=== PATIENT | female | born 1965 | race Caucasian/White ===

== ENCOUNTER 2016-11-11 19:32 | Inpatient (IN) | payer BC ==
[~2016-11-11] VITALS: Ht 172.7 cm; Wt 119.6 kg
[~2016-11-11 19:32] MED LIST: EVER0.25 PO; GABA-113 PO; LISI-787 PO; LORA-741 PO; MULT1CAP3 PO; ONDA4TAB46 PO; OXYC1TAB3 PO; TAMO20TA47 PO
[2016-11-11] MEDS ORDERED: MoRPHine SULFATE 10 MG/ML CARP/VIAL IV STA (20:07)
[2016-11-11] MEDS ORDERED: HYZ/50125 PO (20:29)
[2016-11-11 20:30] LABS: HEMATOCRIT 36.6 % (37-47); MEAN CELL VOLUME 86.1 fL (80-100); MEAN CORPUSCULAR HEMOGLOBIN 28.9 pg (25-34); MEAN CORPUSCULAR HGB CONC 33.6 g/dl (32-36); MEAN PLATELET VOLUME 8.8 fL (7.4-10.4); PLATELET COUNT 166 K/uL (130-400); RED BLOOD COUNT 4.25 M/uL (4.2-5.4); WHITE BLOOD COUNT 7.24 K/uL (4.8-10.8)
[2016-11-11 20:43] LABS: ALB/GLOB RATIO 0.9 (0.9-2); BUN/CREATININE RATIO 17.7 (10-20); CALCIUM 9.3 mg/dl (8.5-10.1); PARTIAL THROMBOPLASTIN RATIO 0.9; POTASSIUM 3.5 mmol/L (3.5-5.1); PROTHROMBIN TIME (PATIENT) 10.2 SECONDS (9.0-12.0)
[2016-11-11 20:52] LABS: BASO % 0.3 %; BASO ABS # 0.02 K/uL (0-0.2); COMPLETE YES; EOS % 0.4 %; IG% 0.3 %; LYMPH % 8.4 %; LYMPH ABS # 0.61 K/uL (1.2-3.4); MONO % 8.1 %; NEUT % 82.5 %
[2016-11-11 20:54] LABS: URINE APPEARANCE CLEAR (CLEAR); URINE BILIRUBIN NEG (NEG); URINE COLOR YELLOW; URINE EPITHELIAL CELL AUTO >30 /lpf (0-5); URINE NITRITE NEG (NEG); URINE SPECIFIC GRAVITY 1.021 (1.000-1.030); UROBILINOGEN NEG (NEG); ZZUR CULT IF INDIC CLEAN CATCH NO
[2016-11-11 20:55] LABS: MANUAL MICROSCOPIC REQUIRED? NO; REVIEW REQ? NO
[2016-11-11] MEDS ORDERED: ONDANSETRON INJ 2 MG/ML 2 ML VIAL IV STA (21:03)
--- NOTE | 2016-11-11 21:58 | DIAGNOSTIC IMAGING REPORT ---
CT SCAN OF THE ABDOMEN AND PELVIS WITHOUT IV CONTRAST CLINICAL HISTORY: Back pain. Fever. Fall. COMPARISON STUDY: Abdominal CT dated 12/11/2011. TECHNIQUE: CT scan of the abdomen and pelvis is performed from the lung bases to the proximal femora. Images are reviewed in the axial, sagittal, and coronal planes. IV contrast was not administered for this examination as per the front clinician. Note that the examination was performed in suboptimal fashion without oral and IV contrast. The examination is also degraded by large body habitus, and by streak artifact from the body wall abutting the CT gantry. Automated dose control exposure was utilized. CT DOSE: 1694.48 mGy.cm FINDINGS: Lung bases: The heart is normal in size and without pericardial effusion. The lung bases are clear noting dependent atelectasis. Liver: The unenhanced liver is enlarged, measuring 19 cm in length. Fatty sparing is seen adjacent to gallbladder fossa. The liver demonstrates diffusely diminished attenuation consistent with hepatic steatosis. There is no intrahepatic biliary ductal dilatation. Gallbladder: Unremarkable. Spleen: Normal in size and attenuation. Pancreas: Atrophic and grossly unremarkable. Adrenal glands: Unremarkable. Kidneys: The unenhanced kidneys are normal in size and without hydronephrosis. There are no renal calculi identified. There is no evidence of contour deforming renal mass lesion. Abdominal vasculature: The abdominal aorta is normal in course and caliber. Bowel: The small bowel and colon are normal in course and caliber. The appendix is not identified and reported surgically absent. Peritoneum: There is no intraperitoneal free air or abdominal ascites. There is a fat-containing umbilical hernia. Lymphadenopathy: None. Pelvic viscera: The bladder is normal as visualized. The uterus is surgically absent. No adnexal lesion is seen. Skeletal structures: The skeletal structures are osteopenic. Lumbosacral spondylosis is observed. There are postoperative changes from L4 -S1 spinal fusion. Grade 1 anterolisthesis is seen at L5-S1. No lytic or blastic lesions are seen. IMPRESSION: 1. There are no acute infectious or inflammatory findings in the abdomen or pelvis. 2. Hepatomegaly and hepatic steatosis. 3. Additional findings as above. Electronically signed by: Maximino Ocampo M.D. 11/11/2016 9:56 PM Dictated Date/Time: 11/11/2016 9:50 PM
--- NOTE | 2016-11-11 22:14 | DIAGNOSTIC IMAGING REPORT ---
CT SCAN OF THE LUMBAR SPINE WITHOUT IV CONTRAST CLINICAL HISTORY: Lumbar back pain. COMPARISON STUDY: Abdominal CT performed concurrently on 11/11/2016. MRI of the lumbar spine dated 12/11/2011 and 11/12/2015. TECHNIQUE: CT scan of the lumbar spine is performed from the lower thoracic spine to the sacrum. Images are reviewed in the axial, sagittal, and coronal planes. IV contrast was not administered for this examination. The examination is degraded by metallic streak artifact from spinal orthopedic hardware. FINDINGS: The skeletal structures are osteopenic. There is no evidence of fracture or malalignment involving the lumbar spine. Vertebral body height is maintained. There is 9 mm of anterolisthesis at L5-S1. Alignment is otherwise preserved. Tiny anterior osteophytic are seen throughout. There are postoperative changes from laminectomy and posterior fusion seen and interposition bone graft seen from L4 -S1. The orthopedic hardware appears intact. No lytic or blastic lesions are identified. The transverse processes are intact. There is evidence of discectomy at L4-L5 and L5-S1. The remaining disc spaces are preserved. There is no evidence of large disc herniation. The visualized sacrum and bony pelvis appear intact. Postoperative change is seen in the posterior paraspinous soft tissue the lower lumbar region. The paraspinous soft tissues otherwise normal in appearance. Hepatic steatosis is observed. IMPRESSION: 1. No acute bony abnormality is seen involving the lumbar spine. 2. Osteopenia with mild degenerative as well as postoperative changes as above. This is similar to prior studies. Electronically signed by: Maximino Ocampo M.D. 11/11/2016 10:13 PM Dictated Date/Time: 11/11/2016 10:08 PM
[2016-11-11] MEDS ORDERED: ACETAMINOPHEN 325 MG TAB PO STA (22:22)
--- NOTE | 2016-11-11 22:33 | DIAGNOSTIC IMAGING REPORT ---
TWO VIEW CHEST CLINICAL HISTORY: Atypical chest pain. Fever. FINDINGS: PA and lateral chest radiographs are compared to study dated 04/07/2014. The examination is degraded by large body habitus. The cardiomediastinal silhouette is unremarkable. The lungs and pleural spaces are clear. There is no pneumothorax. The skeletal structures are osteopenic. The bony thorax appears intact. IMPRESSION: No active disease in the chest. Electronically signed by: Maximino Ocampo M.D. 11/11/2016 10:31 PM Dictated Date/Time: 11/11/2016 10:30 PM
--- NOTE | 2016-11-11 22:34 | DIAGNOSTIC IMAGING REPORT ---
CERVICAL SPINE 5 VIEWS CLINICAL HISTORY: Neck pain. Fall several days ago. FINDINGS: AP, lateral, bilateral oblique, and odontoid views of the cervical spine are compared to study dated 08/30/2015. The skeletal structures are osteopenic. There is no radiographic evidence of fracture or subluxation. The odontoid process and lateral masses appear intact on the open mouth view. The spinolaminar line is preserved. Vertebral body height is maintained. Minimal retrolisthesis is seen at C4-C5. Alignment is otherwise preserved. There is straightening of the cervical lordosis. Anterior osteophytes are seen in the lower cervical region. Productive degenerative changes noted at the atlantodental articulation. The spinous processes appear intact. Moderate disc space narrowing is seen at C4-C5, C5-C6, and C6-C7. Posterior disc osteophyte complexes at these levels likely contribute to acquired compromise of the central canal. Neural foraminal stenosis is suggested bilaterally from C4-C5 through C6-C7, left greater than right. The prevertebral soft tissues are within normal limits. Visualized apical lung parenchyma appears clear. IMPRESSION: 1. There is no radiographic evidence of fracture or subluxation involving the cervical spine. 2. Osteopenia and spondylotic change as above. Electronically signed by: Maximino Ocampo M.D. 11/11/2016 10:33 PM Dictated Date/Time: 11/11/2016 10:31 PM
--- NOTE | 2016-11-11 22:40 | DIAGNOSTIC IMAGING REPORT ---
THORACIC SPINE 3 VIEWS CLINICAL HISTORY: Fall several days ago with thoracic back pain. FINDINGS: AP, lateral, and swimmer's views of the thoracic spine are obtained. Correlation is made with lateral chest radiograph dated 02/20/2012. The skeletal structures are osteopenic. There is no radiographic evidence of fracture or malalignment. Minimal superior endplate compression deformities in the midthoracic spine are chronic and unchanged from 2012. Vertebral body height is otherwise maintained. Alignment is preserved throughout the thoracic spine. Minimal thoracic scoliosis is suggested. The transverse processes and pedicles are grossly intact as seen on the frontal view. The disc spaces appear preserved. Tiny anterior osteophytes are seen throughout. The imaged lung parenchyma appears clear. IMPRESSION: There is no radiographic evidence of fracture or malalignment involving the thoracic spine. Electronically signed by: Maximino Ocampo M.D. 11/11/2016 10:39 PM Dictated Date/Time: 11/11/2016 10:37 PM
[2016-11-11] MEDS ORDERED: MoRPHine SULFATE 2 MG/ML CARP IV STA (22:59)
[2016-11-11 23:10] LABS: LYME DISEASE AB IGG NEG (NEG); LYME DISEASE AB IGM NEG (NEG)
[2016-11-11] MEDS ORDERED: LORAZEPAM 0.5 MG TAB PO PRN (23:45)
[2016-11-11] MEDS ORDERED: ALUMINUM/MAGNESIUM/SIMETH (MAALOX MAX) 30 ML UDC PO PRN (23:45)
[2016-11-11] MEDS ORDERED: MAGNESIUM HYDROXIDE SUSP 30 ML UDC PO PRN (23:45)
[2016-11-11] MEDS ORDERED: POLYETHYLENE (MIRALAX) 17 GM PACK PO PRN (23:45)
[2016-11-11] MEDS ORDERED: SYN50 (23:46)
[2016-11-12 00:10] VITALS: BP 130/83; PULSE 116; TEMP 37.3; O2SAT 92; Ht 172.7 cm; Wt 119.6 kg
[2016-11-12 00:22] LABS: THYROID STIMULATING HORMONE 0.952 uIu/ml (0.300-4.500)
--- NOTE | 2016-11-12 00:32 | EMERGENCY ROOM VISIT NOTE ---
History Report prepared by Nancy: Lola Robles Under the Supervision of: Dr. Arik Donald M.D. First contact with patient: 19:57 Chief Complaint: FALL Stated Complaint: LOWER BACK/LEG PAIN,FEVER,CHILLS,FAST PULSE History of Present Illness The patient is a 51 year old female who presents to the Emergency Room with complaints of a sudden fall that occurred evening. She currently rates her discomfort as a 9/10 in severity. The patient states that on she had a fall in the shower because her shower chair tipped over. She states that she hit her shoulders and back. The patient denies any head injury or loss of consciousness. She states that after the fall her pain progressively worsened and notes pain through her back, neck, and shoulders. The patient states that she has nerve pain from her two previous back surgeries. She denies any loss of control of her bowel or bladder or extremity weakness. She has noticed intermittent tingling down her legs. The patient states that today she developed mid-abdominal pain, flank pain, and fever. She notes that she has an umbilical hernia that was confirmed on a CT scan. The patient reports a surgical history of an appendectomy and hysterectomy. She states that she has a history of breast cancer, but notes that she is in remission. The patient states that she was on a clinical trial for her breast cancer and reports getting UTIs often. She states that she recently was on Cipro for a recent UTI about 2 weeks ago. The patient states that today after she ate Lasagna, she became nauseated, but notes that it was alleviated with Zofran. She denies any vomiting. The patient denies any cough or cold symptoms. The patient's notes that the patient has a history of kidney stones. Source of History: patient, spouse/significant other () Onset: Position: other (global) Symptom Intensity: 9/10 Quality: other (fall) Timing: other (sudden) Associated Symptoms: + fevers, + neck pain, + nausea, + abdominal pain, + back pain, No vomiting Note: Associated Symptoms: shoulder pain, flank pain Review of Systems See HPI for pertinent positives & negatives. A total of 10 systems reviewed and were otherwise negative. Past Medical & Surgical Medical Problems: (1) Acute bilateral low back pain (2) Breast cancer (3) CALCULUS OF KIDNEY (4) Fever (5) HYPERTENSION NOS (6) OVARIAN CYST NEC/NOS Surgical Problems: (1) H/O lumpectomy (2) H/O: hysterectomy (3) Previous back surgery (4) S/P appendectomy Family History Cancer Diabetes mellitus FHx: gallbladder disease Heart disease Hypertension Kidney disease Kidney stones Social History Smoking Status: Never Smoker Alcohol Use: none Drug Use: none Marital Status: Housing Status: lives with family Occupation Status: employed Current/Historical Medications Scheduled Gabapentin (Neurontin), 600 MG PO TID Hctz/Losartan (Hyzaar 12.5MG/50MG), 0.5 TAB PO DAILY Multiple Vitamins W/ Minerals (Womens Multi), 1 CAP PO DAILY Tamoxifen (Nolvadex), 20 MG PO QPM Scheduled PRN Lorazepam (Ativan), 0.5 MG PO TID PRN for Anxiety Ondansetron Hcl (Zofran), 4 MG PO Q8 PRN for Nausea Miscellaneous Medications Levothyroxine Sodium (Synthroid) Allergies Coded Allergies: Fish Allergy (Verified Allergy, Severe, throat swelling up, hives, 11/11/16) reports getting puffy, Sulfa Antibiotics (Verified Allergy, Intermediate, BACTRIM-HIVES, 11/11/16) Ketorolac (Verified Allergy, Mild, TACHY, 11/11/16) Sulfamethoxazole (Verified Allergy, Mild, HIVES, 11/11/16) Trimethoprim (Verified Allergy, Mild, HIVES, 11/11/16) Uncoded Allergies: ??antiemetic (Allergy, Unknown, MOST ANTIEMETICS CAUSE TACHYCARDIA; TOLERATES PHENERGAN WELL, 03/12/12) ANTIEMETIC (Allergy, Unknown, TACHYCARDIA (EXCEPT ON ZOFRAN), 11/12/15) Physical Exam Vital Signs Date Time Temp Pulse Resp B/P (MAP) Pulse Ox O2 Delivery O2 Flow Rate FiO2 11/11/16 23:18 115 20 157/72 97 Room Air 11/11/16 22:31 36.8 11/11/16 21:57 106 20 123/87 97 Room Air 11/11/16 20:20 97 Room Air 11/11/16 20:20 120 11/11/16 20:18 119 20 171/104 98 Room Air 11/11/16 19:34 38.1 132 22 163/105 100 Room Air Physical Exam Constitutional: Vital signs reviewed. Eyes: Pupils are equal round reactive to light. Conjunctiva are noninjected. ENT: Pharynx is clear without erythema or exudate. Mucous membranes are moist. Neck supple without meningeal signs. Respiratory: Clear to auscultation bilaterally. Breath sounds are equal bilaterally. Cardiovascular: Regular rate and rhythm. No rubs or gallops. GI: Suprapubic tenderness without guarding. Soft, nondistended. Bowel sounds are present. Musculoskeletal: No CVA tenderness, diffuse tenderness throughout entire cervical, thoracic, and lumbosacral spine without step off or deformity Integumentary: No cyanosis. Neurological: The patient is awake and alert. No focal deficits. Motor and sensation are intact in lower extremities bilaterally. Psychiatric: Normal affect. Medical Decision & Procedures ER Provider Diagnostic Interpretation: Radiology results as stated below per my review and the radiologist's interpretation: THORACIC SPINE 3 VIEWS CLINICAL HISTORY: Fall several days ago with thoracic back pain. FINDINGS: AP, lateral, and swimmer's views of the thoracic spine are obtained. Correlation is made with lateral chest radiograph dated 02/20/2012. The skeletal structures are osteopenic. There is no radiographic evidence of fracture or malalignment. Minimal superior endplate compression deformities in the midthoracic spine are chronic and unchanged from 2012. Vertebral body height is otherwise maintained. Alignment is preserved throughout the thoracic spine. Minimal thoracic scoliosis is suggested. The transverse processes and pedicles are grossly intact as seen on the frontal view. The disc spaces appear preserved. Tiny anterior osteophytes are seen throughout. The imaged lung parenchyma appears clear. IMPRESSION: There is no radiographic evidence of fracture or malalignment involving the thoracic spine. Electronically signed by: Maximino Ocampo M.D. 11/11/2016 10:39 PM Dictated Date/Time: 11/11/2016 10:[address] SCAN OF THE LUMBAR SPINE WITHOUT IV CONTRAST CLINICAL HISTORY: Lumbar back pain. COMPARISON STUDY: Abdominal CT performed concurrently on 11/11/2016. MRI of the lumbar spine dated 12/11/2011 and 11/12/2015. TECHNIQUE: CT scan of the lumbar spine is performed from the lower thoracic spine to the sacrum. Images are reviewed in the axial, sagittal, and coronal planes. IV contrast was not administered for this examination. The examination is degraded by metallic streak artifact from spinal orthopedic hardware. FINDINGS: The skeletal structures are osteopenic. There is no evidence of fracture or malalignment involving the lumbar spine. Vertebral body height is maintained. There is 9 mm of anterolisthesis at L5-S1. Alignment is otherwise preserved. Tiny anterior osteophytic are seen throughout. There are postoperative changes from laminectomy and posterior fusion seen and interposition bone graft seen from L4 -S1. The orthopedic hardware appears intact. No lytic or blastic lesions are identified. The transverse processes are intact. There is evidence of discectomy at L4-L5 and L5-S1. The remaining disc spaces are preserved. There is no evidence of large disc herniation. The visualized sacrum and bony pelvis appear intact. Postoperative change is seen in the posterior paraspinous soft tissue the lower lumbar region. The paraspinous soft tissues otherwise normal in appearance. Hepatic steatosis is observed. IMPRESSION: 1. No acute bony abnormality is seen involving the lumbar spine. 2. Osteopenia with mild degenerative as well as postoperative changes as above. This is similar to prior studies. Electronically signed by: Maximino Ocampo M.D. 11/11/2016 10:13 PM Dictated Date/Time: 11/11/2016 10:08 PM TWO VIEW CHEST CLINICAL HISTORY: Atypical chest pain. Fever. FINDINGS: PA and lateral chest radiographs are compared to study dated 04/07/2014. The examination is degraded by large body habitus. The cardiomediastinal silhouette is unremarkable. The lungs and pleural spaces are clear. There is no pneumothorax. The skeletal structures are osteopenic. The bony thorax appears intact. IMPRESSION: No active disease in the chest. Electronically signed by: Maximino Ocampo M.D. 11/11/2016 10:31 PM Dictated Date/Time: 11/11/2016 10:30 PM CERVICAL SPINE 5 VIEWS CLINICAL HISTORY: Neck pain. Fall several days ago. FINDINGS: AP, lateral, bilateral oblique, and odontoid views of the cervical spine are compared to study dated 08/30/2015. The skeletal structures are osteopenic. There is no radiographic evidence of fracture or subluxation. The odontoid process and lateral masses appear intact on the open mouth view. The spinolaminar line is preserved. Vertebral body height is maintained. Minimal retrolisthesis is seen at C4-C5. Alignment is otherwise preserved. There is straightening of the cervical lordosis. Anterior osteophytes are seen in the lower cervical region. Productive degenerative changes noted at the atlantodental articulation. The spinous processes appear intact. Moderate disc space narrowing is seen at C4-C5, C5-C6, and C6-C7. Posterior disc osteophyte complexes at these levels likely contribute to acquired compromise of the central canal. Neural foraminal stenosis is suggested bilaterally from C4-C5 through C6-C7, left greater than right. The prevertebral soft tissues are within normal limits. Visualized apical lung parenchyma appears clear. IMPRESSION: 1. There is no radiographic evidence of fracture or subluxation involving the cervical spine. 2. Osteopenia and spondylotic change as above. Electronically signed by: Maximino Ocampo M.D. 11/11/2016 10:33 PM Dictated Date/Time: 11/11/2016 10:[address] SCAN OF THE ABDOMEN AND PELVIS WITHOUT IV CONTRAST CLINICAL HISTORY: Back pain. Fever. Fall. COMPARISON STUDY: Abdominal CT dated 12/11/2011. TECHNIQUE: CT scan of the abdomen and pelvis is performed from the lung bases to the proximal femora. Images are reviewed in the axial, sagittal, and coronal planes. IV contrast was not administered for this examination as per the front clinician. Note that the examination was performed in suboptimal fashion without oral and IV contrast. The examination is also degraded by large body habitus, and by streak artifact from the body wall abutting the CT gantry. Automated dose control exposure was utilized. CT DOSE: 1694.48 mGy.cm FINDINGS: Lung bases: The heart is normal in size and without pericardial effusion. The lung bases are clear noting dependent atelectasis. Liver: The unenhanced liver is enlarged, measuring 19 cm in length. Fatty sparing is seen adjacent to gallbladder fossa. The liver demonstrates diffusely diminished attenuation consistent with hepatic steatosis. There is no intrahepatic biliary ductal dilatation. Gallbladder: Unremarkable. Spleen: Normal in size and attenuation. Pancreas: Atrophic and grossly unremarkable. Adrenal glands: Unremarkable. Kidneys: The unenhanced kidneys are normal in size and without hydronephrosis. There are no renal calculi identified. There is no evidence of contour deforming renal mass lesion. Abdominal vasculature: The abdominal aorta is normal in course and caliber. Bowel: The small bowel and colon are normal in course and caliber. The appendix is not identified and reported surgically absent. Peritoneum: There is no intraperitoneal free air or abdominal ascites. There is a fat-containing umbilical hernia. Lymphadenopathy: None. Pelvic viscera: The bladder is normal as visualized. The uterus is surgically absent. No adnexal lesion is seen. Skeletal structures: The skeletal structures are osteopenic. Lumbosacral spondylosis is observed. There are postoperative changes from L4 -S1 spinal fusion. Grade 1 anterolisthesis is seen at L5-S1. No lytic or blastic lesions are seen. IMPRESSION: 1. There are no acute infectious or inflammatory findings in the abdomen or pelvis. 2. Hepatomegaly and hepatic steatosis. 3. Additional findings as above. Electronically signed by: Maximino Ocampo M.D. 11/11/2016 9:56 PM Dictated Date/Time: 11/11/2016 9:50 PM Laboratory Results 11/11/16 19:55 Red Blood Count 4.25, Mean Corpuscular Volume 86.1, Mean Corpuscular Hemoglobin 28.9, Mean Corpuscular Hemoglobin Concent 33.6, Mean Platelet Volume 8.8, Neutrophils (%) (Auto) 82.5, Lymphocytes (%) (Auto) 8.4, Monocytes (%) (Auto) 8.1, Eosinophils (%) (Auto) 0.4, Basophils (%) (Auto) 0.3, Neutrophils # (Auto) 5.97, Lymphocytes # (Auto) 0.61, Monocytes # (Auto) 0.59, Eosinophils # (Auto) 0.03, Basophils # (Auto) 0.02 11/11/16 19:55 Test 11/11/16 19:55 11/11/16 20:41 11/11/16 21:10 White Blood Count 7.24 K/uL (4.8-10.8) Red Blood Count 4.25 M/uL (4.2-5.4) Hemoglobin 12.3 g/dL (12.0-16.0) Hematocrit 36.6 % (37-47) Mean Corpuscular Volume 86.1 fL (80-100) Mean Corpuscular Hemoglobin 28.9 pg (25-34) Mean Corpuscular Hemoglobin Concent 33.6 g/dl (32-36) Platelet Count 166 K/uL (130-400) Mean Platelet Volume 8.8 fL (7.4-10.4) Neutrophils (%) (Auto) 82.5 % Lymphocytes (%) (Auto) 8.4 % Monocytes (%) (Auto) 8.1 % Eosinophils (%) (Auto) 0.4 % Basophils (%) (Auto) 0.3 % Neutrophils # (Auto) 5.97 K/uL (1.4-6.5) Lymphocytes # (Auto) 0.61 K/uL (1.2-3.4) Monocytes # (Auto) 0.59 K/uL (0.11-0.59) Eosinophils # (Auto) 0.03 K/uL (0-0.5) Basophils # (Auto) 0.02 K/uL (0-0.2) RDW Standard Deviation 44.7 fL (36.4-46.3) RDW Coefficient of Variation 14.3 % (11.5-14.5) Immature Granulocyte % (Auto) 0.3 % Immature Granulocyte # (Auto) 0.02 K/uL (0.00-0.02) Prothrombin Time 10.2 SECONDS (9.0-12.0) Prothromb Time International Ratio 1.0 (0.9-1.1) Activated Partial Thromboplast Time 23.8 SECONDS (21.0-31.0) Partial Thromboplastin Ratio 0.9 Anion Gap 13.0 mmol/L (3-11) Est Creatinine Clear Calc Drug Dose 90.5 ml/min Estimated GFR () 75.5 Estimated GFR (Non- 65.2 BUN/Creatinine Ratio 17.7 (10-20) Calcium Level 9.3 mg/dl (8.5-10.1) Total Bilirubin 0.3 mg/dl (0.2-1) Aspartate Amino Transf (AST/SGOT) 29 U/L (15-37) Alanine Aminotransferase (ALT/SGPT) 44 U/L (12-78) Alkaline Phosphatase 65 U/L (45-117) Total Protein 7.4 gm/dl (6.4-8.2) Albumin 3.6 gm/dl (3.4-5.0) Globulin 3.8 gm/dl (2.5-4.0) Albumin/Globulin Ratio 0.9 (0.9-2) Thyroid Stimulating Hormone (TSH) 0.952 uIu/ml (0.300-4.500) Chemistry Specimen Hemolysis Lyme Disease IgG Antibody NEG (NEG) Lyme Disease IgM Antibody NEG (NEG) Urine Color YELLOW Urine Appearance CLEAR (CLEAR) Urine pH 5.0 (4.5-7.5) Urine Specific [place] 1.021 (1.000-1.030) Urine Protein NEG (NEG) Urine Glucose (UA) NEG (NEG) Urine Ketones TRACE (NEG) Urine Occult Blood NEG (NEG) Urine Nitrite NEG (NEG) Urine Bilirubin NEG (NEG) Urine Urobilinogen NEG (NEG) Urine Leukocyte Esterase NEG (NEG) Urine WBC (Auto) 1-5 /hpf (0-5) Urine RBC (Auto) 0-4 /hpf (0-4) Urine Hyaline Casts (Auto) 0 /lpf (0-5) Urine Epithelial Cells (Auto) >30 /lpf (0-5) Urine Bacteria (Auto) NEG (NEG) Bedside Lactic Acid Venous 1.79 mmol/L (0.90-1.70) Laboratory results as reviewed by me. Medications Administered Medications (Trade) Dose Ordered Sig/Tatyana Route Start Time Stop Time Status Last Admin Dose Admin Morphine Sulfate (MoRPHine SULFATE INJ) 6 mg NOW STAT IV 11/11/16 20:07 11/11/16 20:10 DC 11/11/16 20:37 6 MG Ondansetron HCl (Zofran Inj) 4 mg NOW STAT IV 11/11/16 21:03 11/11/16 21:04 DC 11/11/16 21:03 4 MG Acetaminophen (Tylenol Tab) 650 mg NOW STAT PO 11/11/16 22:22 11/11/16 22:24 DC 11/11/16 22:30 650 MG Morphine Sulfate (MoRPHine SULFATE INJ) 2 mg NOW STAT IV 11/11/16 22:59 11/11/16 23:00 DC 11/11/16 23:16 2 MG ECG Indication: other (fall) Rate (beats per minute): 124 Rhythm: sinus tachycardia Findings: no ectopy, other (no ST elevaitons) ED Course 1958: The patient was evaluated in room C8. A complete history and physical exam was performed. 2006: Ordered Morphine Sulfate 6 mg IV. 2102: Ordered Zofran Inj 4 mg IV. 2221: Ordered Tylenol Tab 650 mg PO. 2258: Ordered Morphine Sulfate 2 mg IV. 4: I discussed the patients case with Meg Carrion. He is going to evaluate the patient for further treatment. 6: I reevaluated the patient and she is resting. I discussed the exam findings with her and I discussed the treatment plan. She verbalized complete understanding and agreement. She is going to be evaluated for further treatment. Medical Decision This is a 51-year-old female presents with injuries after a fall as well as fever and abdominal pain starting today. Differential diagnosis includes UTI, pyelonephritis, kidney stone, diverticulitis, compression fracture, strain, intervertebral disc disease. I did perform a limited focused review of portions of the patient's old chart on the electronic medical record. The patient has had no recent pertinent visits to this hospital. Medication Reconciliation: I attest that I have personally reviewed the patient' s current medication list. Blood Pressure Screening: Patient was found to have an elevated blood pressure and was referred to their primary doctor for recheck and further treatment. I did evaluate the patient as noted above. The patient has had pain to her entire back and neck since she fell in the shower several days ago. Today she developed abdominal pain with fever. On exam she is neurologically intact. She does have suprapubic abdominal tenderness. She does not demonstrate any signs of cauda equina syndrome or spinal cord injury. IV access was established. I did treat the patient with IV morphine and Zofran. She was given Tylenol for her fever. I did order and personally review the patient's x- rays as described above. She has no fractures or dislocations or signs of pneumonia. I did order and review the patient's blood work as noted in the electronic medical record. Her white blood cell count is not elevated. Her lactic acid is elevated. I did order a CT of the abdomen and pelvis and lumbosacral spine. I did review the images myself as well as the radiology report as described above. There is no evidence of acute pathology on the CT scans.I did reassess the patient. She is still having back pain. I did treat her with additional morphine. I did discuss the test results with her. At this time the etiology of her fever is unclear. She will be hospitalized for further evaluation and pain control. I did discuss the case with the hospitalist and high risk case manager. Consults Time Called: [phone] Consulting Physician: Meg Carrion Returned Call: [phone] I discussed the patients case with Meg Carrion. He is going to evaluate the patient for further treatment. Impression Primary Impression: Fever of unknown origin Additional Impressions: Lower abdominal pain Back pain Fall Scribe Attestation The scribe's documentation has been prepared under my direct and personally reviewed by me in its entirety. I confirm that the note above accurately reflects all work, treatment, procedures, and medical decision making performed by me. Departure Information Dispostion Being Evaluated By Hospitalist Referrals Tom Martinez M.D.(GISEL) (PCP) Problem Qualifiers Additional Impressions: Back pain Back pain location: back pain in unspecified location Chronicity: acute Back pain laterality: midline Qualified Codes: M54.9 - Dorsalgia, unspecified Fall Encounter type: initial encounter Qualified Codes: W19.XXXA - Unspecified fall, initial encounter
[2016-11-12] MEDS ORDERED: GABAPENTIN 600 MG TAB PO STA (01:40)
[2016-11-12] MEDS ORDERED: TAMOXIFEN CITRATE 10 MG TAB PO ONE (01:45)
--- NOTE | 2016-11-12 02:14 | History and Physical ---
History & Physical Date & Time of Service: Nov 12, 2016 at 01:39 Chief Complaint: Acute Bilateral Low Back Pain, Fever Primary Care Physician: Tom Martinez M.D.(GISEL) History of Present Illness Source: patient, family, clinic records This is a 51 year old female with a PMH of R sided breast CA with mets to the axillary lymph node - completed course of chemo and radiation, HTN, hypothyroidism, episleritis; now off of steroids, hx. of multiple lumbar surgeries in 2011 and 2013 - presents with fevers/chills/weakness. She states that on , November 08 she fell while in the shower -- she states that it was a mechanical fall and she landed on her buttocks. Since the fall, her back pain has worsened. She states that today, she also felt weak, her heart started racing and she developed symptomatic fevers/chills. Presented to the ER; CXR and UA negative. Received morphine and Zofran - felt slightly better. Due to the low back pain, she has been having trouble ambulating - has been using a cane, but still having ambulatory issues. Past Medical/Surgical History Medical Problems: (1) CALCULUS OF KIDNEY Status: Resolved (2) HYPERTENSION NOS Status: Chronic (3) OVARIAN CYST NEC/NOS Status: Resolved Surgical Problems: (1) H/O lumpectomy Status: Resolved (2) H/O: hysterectomy Status: Resolved (3) Previous back surgery Status: Resolved (4) S/P appendectomy Status: Resolved Family History Cancer Diabetes mellitus FHx: gallbladder disease Heart disease Hypertension Kidney disease Kidney stones Social History Smoking Status: Never Smoker Drug Use: none Marital Status: Housing status: lives with family Occupational Status: employed Immunizations History of Influenza Vaccine: No History of Tetanus Vaccine?: Yes History of Pneumococcal: No History of Hepatitis B Vaccine: Yes Hepatitis Immunization Date: Mar 13, 2011 Multi-Drug Resistant Organisms History of MDRO: No Allergies Coded Allergies: Fish Allergy (Verified Allergy, Severe, throat swelling up, hives, 11/11/16) reports getting puffy, Sulfa Antibiotics (Verified Allergy, Intermediate, BACTRIM-HIVES, 11/11/16) Ketorolac (Verified Allergy, Mild, TACHY, 11/11/16) Sulfamethoxazole (Verified Allergy, Mild, HIVES, 11/11/16) Trimethoprim (Verified Allergy, Mild, HIVES, 11/11/16) Uncoded Allergies: ??antiemetic (Allergy, Unknown, MOST ANTIEMETICS CAUSE TACHYCARDIA; TOLERATES PHENERGAN WELL, 03/12/12) ANTIEMETIC (Allergy, Unknown, TACHYCARDIA (EXCEPT ON ZOFRAN), 11/12/15) Home Medications Scheduled Gabapentin (Neurontin), 600 MG PO TID Hctz/Losartan (Hyzaar 12.5MG/50MG), 0.5 TAB PO DAILY Multiple Vitamins W/ Minerals (Womens Multi), 1 CAP PO DAILY Tamoxifen (Nolvadex), 20 MG PO QPM Scheduled PRN Lorazepam (Ativan), 0.5 MG PO TID PRN for Anxiety Ondansetron Hcl (Zofran), 4 MG PO Q8 PRN for Nausea Miscellaneous Medications Levothyroxine Sodium (Synthroid) Review of Systems Constitutional: + fever, + chills, + weakness, + fatigue, No sweats, No weight loss Eyes: No worsening of vision ENT: No unusual epistaxis Respiratory: No cough, No sputum, No wheezing, No shortness of breath, No dyspnea on exertion, No dyspnea at rest, No hemoptysis Abdomen: + pain (abdominal cramping), No nausea, No vomiting, No diarrhea, No constipation, No GI bleeding Musculoskeletal: + joint pain (low back pain) Genitourinary - Female: No dysuria, No urinary frequency, No urinary urgency, No urinary incontinence, No urinary retention, No hematuria Neurologic: + weakness, + balance problems, No numbness/tingling, No vertigo Psychiatric: No depression symptoms, No anxiety, No insomnia Endocrine: No fatigue Hematologic / Lymphatic: No abnormal bleeding/bruising Integumentary: No rash Allergic / Immunologic: No environmental allergies, No seasonal allergies Physical Exam Vital Signs Date Time Temp Pulse Resp B/P (MAP) Pulse Ox O2 Delivery O2 Flow Rate FiO2 11/11/16 23:18 115 20 157/72 97 Room Air 11/11/16 22:31 36.8 11/11/16 21:57 106 20 123/87 97 Room Air 11/11/16 20:20 97 Room Air 11/11/16 20:20 120 11/11/16 20:18 119 20 171/104 98 Room Air 11/11/16 19:34 38.1 132 22 163/105 100 Room Air General Appearance: + mild distress (secondary to pain), + obese Head: normocephalic, atraumatic Eyes: normal inspection ENT: hearing grossly normal Neck: supple Respiratory/Chest: chest non-tender, lungs clear, normal breath sounds, no respiratory distress, no accessory muscle use Cardiovascular: no edema, no murmur, + tachycardia Abdomen/GI: normal bowel sounds, non tender, soft Extremities/Musculoskelatal: normal capillary refill, no pedal edema Neurologic/Psych: no motor/sensory deficits, alert, normal mood/affect Skin: normal color Diagnostics Laboratory Results Results Past 24 Hours Test 11/11/16 19:55 11/11/16 20:41 11/11/16 21:10 Range/Units White Blood Count 7.24 4.8-10.8 K/uL Red Blood Count 4.25 4.2-5.4 M/uL Hemoglobin 12.3 12.0-16.0 g/dL Hematocrit 36.6 37-47 % Mean Corpuscular Volume 86.1 80-100 fL Mean Corpuscular Hemoglobin 28.9 25-34 pg Mean Corpuscular Hemoglobin Concent 33.6 32-36 g/dl Platelet Count 166 130-400 K/uL Mean Platelet Volume 8.8 7.4-10.4 fL Neutrophils (%) (Auto) 82.5 % Lymphocytes (%) (Auto) 8.4 % Monocytes (%) (Auto) 8.1 % Eosinophils (%) (Auto) 0.4 % Basophils (%) (Auto) 0.3 % Neutrophils # (Auto) 5.97 1.4-6.5 K/uL Lymphocytes # (Auto) 0.61 1.2-3.4 K/uL Monocytes # (Auto) 0.59 0.11-0.59 K/uL Eosinophils # (Auto) 0.03 0-0.5 K/uL Basophils # (Auto) 0.02 0-0.2 K/uL RDW Standard Deviation 44.7 36.4-46.3 fL RDW Coefficient of Variation 14.3 11.5-14.5 % Immature Granulocyte % (Auto) 0.3 % Immature Granulocyte # (Auto) 0.02 0.00-0.02 K/uL Prothrombin Time 10.2 9.0-12.0 SECONDS Prothromb Time International Ratio 1.0 0.9-1.1 Activated Partial Thromboplast Time 23.8 21.0-31.0 SECONDS Partial Thromboplastin Ratio 0.9 Sodium Level 141 136-145 mmol/L Potassium Level 3.5 3.5-5.1 mmol/L Chloride Level 104 98-107 mmol/L Carbon Dioxide Level 24 21-32 mmol/L Anion Gap 13.0 3-11 mmol/L Blood Urea Nitrogen 18 7-18 mg/dl Creatinine 1.00 0.60-1.20 mg/dl Est Creatinine Clear Calc Drug Dose 90.5 ml/min Estimated GFR () 75.5 Estimated GFR (Non- 65.2 BUN/Creatinine Ratio 17.7 10-20 Random Glucose 132 70-99 mg/dl Calcium Level 9.3 8.5-10.1 mg/dl Total Bilirubin 0.3 0.2-1 mg/dl Aspartate Amino Transf (AST/SGOT) 29 15-37 U/L Alanine Aminotransferase (ALT/SGPT) 44 12-78 U/L Alkaline Phosphatase 65 45-117 U/L Total Protein 7.4 6.4-8.2 gm/dl Albumin 3.6 3.4-5.0 gm/dl Globulin 3.8 2.5-4.0 gm/dl Albumin/Globulin Ratio 0.9 0.9-2 Thyroid Stimulating Hormone (TSH) 0.952 0.300-4.500 uIu/ml Chemistry Specimen Hemolysis Lyme Disease IgG Antibody NEG NEG Lyme Disease IgM Antibody NEG NEG Urine Color YELLOW Urine Appearance CLEAR CLEAR Urine pH 5.0 4.5-7.5 Urine Specific [place] 1.021 1.000-1.030 Urine Protein NEG NEG Urine Glucose (UA) NEG NEG Urine Ketones TRACE NEG Urine Occult Blood NEG NEG Urine Nitrite NEG NEG Urine Bilirubin NEG NEG Urine Urobilinogen NEG NEG Urine Leukocyte Esterase NEG NEG Urine WBC (Auto) 1-5 0-5 /hpf Urine RBC (Auto) 0-4 0-4 /hpf Urine Hyaline Casts (Auto) 0 0-5 /lpf Urine Epithelial Cells (Auto) >30 0-5 /lpf Urine Bacteria (Auto) NEG NEG Bedside Lactic Acid Venous 1.79 0.90-1.70 mmol/L Microbiology Results 11/11/16 Blood Culture, Received Pending 11/11/16 Blood Culture, Received Pending Diagnostic Radiology CT SCAN OF THE ABDOMEN AND PELVIS WITHOUT IV CONTRAST CLINICAL HISTORY: Back pain. Fever. Fall. COMPARISON STUDY: Abdominal CT dated 12/11/2011. TECHNIQUE: CT scan of the abdomen and pelvis is performed from the lung bases to the proximal femora. Images are reviewed in the axial, sagittal, and coronal planes. IV contrast was not administered for this examination as per the front clinician. Note that the examination was performed in suboptimal fashion without oral and IV contrast. The examination is also degraded by large body habitus, and by streak artifact from the body wall abutting the CT gantry. Automated dose control exposure was utilized. CT DOSE: 1694.48 mGy.cm FINDINGS: Lung bases: The heart is normal in size and without pericardial effusion. The lung bases are clear noting dependent atelectasis. Liver: The unenhanced liver is enlarged, measuring 19 cm in length. Fatty sparing is seen adjacent to gallbladder fossa. The liver demonstrates diffusely diminished attenuation consistent with hepatic steatosis. There is no intrahepatic biliary ductal dilatation. Gallbladder: Unremarkable. Spleen: Normal in size and attenuation. Pancreas: Atrophic and grossly unremarkable. Adrenal glands: Unremarkable. Kidneys: The unenhanced kidneys are normal in size and without hydronephrosis. There are no renal calculi identified. There is no evidence of contour deforming renal mass lesion. Abdominal vasculature: The abdominal aorta is normal in course and caliber. Bowel: The small bowel and colon are normal in course and caliber. The appendix is not identified and reported surgically absent. Peritoneum: There is no intraperitoneal free air or abdominal ascites. There is a fat-containing umbilical hernia. Lymphadenopathy: None. Pelvic viscera: The bladder is normal as visualized. The uterus is surgically absent. No adnexal lesion is seen. Skeletal structures: The skeletal structures are osteopenic. Lumbosacral spondylosis is observed. There are postoperative changes from L4 -S1 spinal fusion. Grade 1 anterolisthesis is seen at L5-S1. No lytic or blastic lesions are seen. IMPRESSION: 1. There are no acute infectious or inflammatory findings in the abdomen or pelvis. 2. Hepatomegaly and hepatic steatosis. 3. Additional findings as above. CT SCAN OF THE LUMBAR SPINE WITHOUT IV CONTRAST CLINICAL HISTORY: Lumbar back pain. COMPARISON STUDY: Abdominal CT performed concurrently on 11/11/2016. MRI of the lumbar spine dated 12/11/2011 and 11/12/2015. TECHNIQUE: CT scan of the lumbar spine is performed from the lower thoracic spine to the sacrum. Images are reviewed in the axial, sagittal, and coronal planes. IV contrast was not administered for this examination. The examination is degraded by metallic streak artifact from spinal orthopedic hardware. FINDINGS: The skeletal structures are osteopenic. There is no evidence of fracture or malalignment involving the lumbar spine. Vertebral body height is maintained. There is 9 mm of anterolisthesis at L5-S1. Alignment is otherwise preserved. Tiny anterior osteophytic are seen throughout. There are postoperative changes from laminectomy and posterior fusion seen and interposition bone graft seen from L4 -S1. The orthopedic hardware appears intact. No lytic or blastic lesions are identified. The transverse processes are intact. There is evidence of discectomy at L4-L5 and L5-S1. The remaining disc spaces are preserved. There is no evidence of large disc herniation. The visualized sacrum and bony pelvis appear intact. Postoperative change is seen in the posterior paraspinous soft tissue the lower lumbar region. The paraspinous soft tissues otherwise normal in appearance. Hepatic steatosis is observed. IMPRESSION: 1. No acute bony abnormality is seen involving the lumbar spine. 2. Osteopenia with mild degenerative as well as postoperative changes as above. This is similar to prior studies. THORACIC SPINE 3 VIEWS CLINICAL HISTORY: Fall several days ago with thoracic back pain. FINDINGS: AP, lateral, and swimmer's views of the thoracic spine are obtained. Correlation is made with lateral chest radiograph dated 02/20/2012. The skeletal structures are osteopenic. There is no radiographic evidence of fracture or malalignment. Minimal superior endplate compression deformities in the midthoracic spine are chronic and unchanged from 2011. Vertebral body height is otherwise maintained. Alignment is preserved throughout the thoracic spine. Minimal thoracic scoliosis is suggested. The transverse processes and pedicles are grossly intact as seen on the frontal view. The disc spaces appear preserved. Tiny anterior osteophytes are seen throughout. The imaged lung parenchyma appears clear. IMPRESSION: There is no radiographic evidence of fracture or malalignment involving the thoracic spine. TWO VIEW CHEST CLINICAL HISTORY: Atypical chest pain. Fever. FINDINGS: PA and lateral chest radiographs are compared to study dated 04/07/2014. The examination is degraded by large body habitus. The cardiomediastinal silhouette is unremarkable. The lungs and pleural spaces are clear. There is no pneumothorax. The skeletal structures are osteopenic. The bony thorax appears intact. IMPRESSION: No active disease in the chest. CERVICAL SPINE 5 VIEWS CLINICAL HISTORY: Neck pain. Fall several days ago. FINDINGS: AP, lateral, bilateral oblique, and odontoid views of the cervical spine are compared to study dated 08/30/2015. The skeletal structures are osteopenic. There is no radiographic evidence of fracture or subluxation. The odontoid process and lateral masses appear intact on the open mouth view. The spinolaminar line is preserved. Vertebral body height is maintained. Minimal retrolisthesis is seen at C4-C5. Alignment is otherwise preserved. There is straightening of the cervical lordosis. Anterior osteophytes are seen in the lower cervical region. Productive degenerative changes noted at the atlantodental articulation. The spinous processes appear intact. Moderate disc space narrowing is seen at C4-C5, C5-C6, and C6-C7. Posterior disc osteophyte complexes at these levels likely contribute to acquired compromise of the central canal. Neural foraminal stenosis is suggested bilaterally from C4-C5 through C6-C7, left greater than right. The prevertebral soft tissues are within normal limits. Visualized apical lung parenchyma appears clear. IMPRESSION: 1. There is no radiographic evidence of fracture or subluxation involving the cervical spine. 2. Osteopenia and spondylotic change as above. Impression Assessment and Plan This is a 51 year old female with a PMH of R sided breast CA with mets to the axillary lymph node - completed course of chemo and radiation, HTN, hypothyroidism, episleritis; now off of steroids, hx. of multiple lumbar surgeries in 2011 and 2013 - presents with fevers/chills/weakness and low back pain Fevers/Chills/Weakness possibly viral gastroenteritis CXR negative UA negative check C. diff - recent abx use for UTI has had L leg pain check dopplers to r/o DVT no abx. for now if tachycardia, fevers persist, may need to r/o PE Low Back Pain with hx. of lumbar surgeries in [address] Chavez will continue gabapentin Percocet PRN, Morphine PRN will try to stick with PO medications PT/OT HTN hold Hyzaar monitor blood pressure resume if stable Hypothyroidism continue Synthroid R Breast CA f/u with oncology as outpatient q6 months for follow-up DVT ppx subq heparin FULL CODE VTE Prophylaxis VTE Risk Assessment Done? Y/N: Yes Risk Level: High
[2016-11-12] MEDS: SODIUM CHLORIDE 0.9% 1000ML 1,000 ML IV SCH ×2 (02:34→14:19)
[2016-11-12] MEDS: OXYCODONE/ACETAMINOPHEN 5-325 TAB PO PRN ×4 (05:37→23:49)
[2016-11-12] MEDS: LEVOTHYROXINE 50 MCG TAB PO SCH (05:37)
[2016-11-12] MEDS: HEPARIN SOD 5000 UNIT/0.5 ML CARP SQ SCH ×3 (05:40→20:54)
[2016-11-12 06:56] LABS: MEAN CELL VOLUME 87.1 fL (80-100); MEAN CORPUSCULAR HGB CONC 33.3 g/dl (32-36); PLATELET COUNT 133 K/uL (130-400); RED BLOOD COUNT 3.79 M/uL (4.2-5.4); WHITE BLOOD COUNT 6.83 K/uL (4.8-10.8)
[2016-11-12 07:20] VITALS: BP 148/83; PULSE 102; TEMP 36.8; O2SAT 93
[2016-11-12 07:33] LABS: BUN/CREATININE RATIO 17.1 (10-20); CALCIUM 8.4 mg/dl (8.5-10.1); CREATININE 0.86 mg/dl (0.60-1.20); POTASSIUM 3.5 mmol/L (3.5-5.1)
--- NOTE | 2016-11-12 07:59 | DIAGNOSTIC IMAGING REPORT ---
VENOUS DOPPLER LWR EXT BILA HISTORY: 51-year-old female presents with leg and lower back pain with fever and chills. Concern for deep venous thrombosis. TECHNIQUE: Multiple real-time sonographic images of the deep venous structures of the lower extremities were obtained assessing adame scale, color Doppler flow and spectral waveform appearance. FINDINGS: RIGHT LOWER EXTREMITY: The common femoral, profunda femoral, femoral, popliteal, and greater saphenous veins demonstrate complete compressibility with external transducer pressure and spontaneous and phasic spectral and color flow. The posterior tibial and peroneal veins demonstrate complete compressibility with external transducer pressure. LEFT LOWER EXTREMITY: The common femoral, profunda femoral, femoral, popliteal, and greater saphenous veins demonstrate complete compressibility with external transducer pressure and spontaneous and phasic spectral and color flow. The posterior tibial and peroneal veins demonstrate complete compressibility with external transducer pressure. IMPRESSION: No sonographic evidence of deep venous thrombosis. Electronically signed by: Aleksander Yan 11/12/2016 7:58 AM Dictated Date/Time: 11/12/2016 7:55 AM
[2016-11-12] MEDS: GABAPENTIN 600 MG TAB PO SCH ×3 (09:19→20:48)
[2016-11-12] MEDS: PANTOprazole SOD 40 MG TAB PO SCH (09:20)
[2016-11-12] MEDS: ONDANSETRON INJ 2 MG/ML 2 ML VIAL IV PRN ×3 (09:20→19:37)
[2016-11-12] MEDS: CEROVITE ADV FORMULA TAB PO SCH (09:20)
[2016-11-12] MEDS: MoRPHine SULFATE 2 MG/ML CARP IV PRN ×2 (13:08→19:50)
[2016-11-12 15:42] VITALS: BP 148/89; PULSE 107; TEMP 36.9; O2SAT 96
[2016-11-12 16:20] VITALS: O2SAT 96
--- NOTE | 2016-11-12 18:24 | Progress Note ---
Internal Med Progress Note Date of Service: Nov 12, 2016. Provider Documentation: SUBJECTIVE: Patient is lying in her bed and is in no distress. Pain in back is better today. Denies any fever/chills. Feels weak. No other new change or complaint. OBJECTIVE: Vital Signs-as noted below Examination: General Appearance: Obese, Alert/Awake and is lying in her bed. Head: normocephalic, atraumatic Eyes: normal inspection. No icterus. ENT: hearing grossly normal. Ears, Nose & Throat are normal looking. Neck: supple, midline trachea, Respiratory/Chest: chest non-tender, lungs clear, normal breath sounds, no respiratory distress, no accessory muscle use Cardiovascular: no edema, no murmur, + tachycardia Abdomen/GI: normal bowel sounds, non tender, soft Extremities/Musculoskeletal: normal capillary refill, no pedal edema Neurologic/Psych: no motor/sensory deficits, alert, normal mood/affect Skin: normal color Lab data as noted below. ASSESSMENT & PLAN: X-Ray Thoracic Spine IMPRESSION: There is no radiographic evidence of fracture or malalignment involving the thoracic spine. CT Lumbar Spine IMPRESSION: 1. No acute bony abnormality is seen involving the lumbar spine. 2. Osteopenia with mild degenerative as well as postoperative changes as above. This is similar to prior studies. CT Cervical Spine IMPRESSION: 1. There is no radiographic evidence of fracture or subluxation involving the cervical spine. 2. Osteopenia and spondylotic change as above. Venous Duplex IMPRESSION: No sonographic evidence of deep venous thrombosis. Fevers/Chills/Weakness: Possibly viral gastroenteritis -CXR negative -UA negative -Dopplers shows no DVT -No abx. for now Low Back Pain: With hx. of lumbar surgeries in [address] Chavez -Continue gabapentin -Percocet PRN, Morphine PRN -will try to stick with PO medications -PT/OT Evaluation Hypertension: Holding Hyzaar -Monitor blood pressure -Resume if stable Hypothyroidism: Continue Synthroid Right Breast CA: F/U f with oncology as outpatient q6 months for follow-up DVT Prophylaxis: Sq Heparin. Code Status: FULL CODE Disposition: Discharge in 1-2 days Vital Signs: Date Time Temp Pulse Resp B/P (MAP) Pulse Ox O2 Delivery O2 Flow Rate FiO2 11/12/16 15:42 36.9 107 18 148/89 (108) 96 Room Air 11/12/16 09:10 Room Air 11/12/16 07:20 36.8 102 19 148/83 (104) 93 Room Air 11/12/16 00:10 Room Air 11/12/16 00:10 37.3 116 16 130/83 92 Room Air 11/11/16 23:18 115 20 157/72 97 Room Air 11/11/16 22:31 36.8 11/11/16 21:57 106 20 123/87 97 Room Air 11/11/16 20:20 97 Room Air 11/11/16 20:20 120 11/11/16 20:18 119 20 171/104 98 Room Air 11/11/16 19:34 38.1 132 22 163/105 100 Room Air Lab Results: Results Past 24 Hours Test 11/11/16 19:55 11/11/16 20:41 11/11/16 21:10 11/12/16 06:13 Range/Units White Blood Count 7.24 6.83 4.8-10.8 K/uL Red Blood Count 4.25 3.79 4.2-5.4 M/uL Hemoglobin 12.3 11.0 12.0-16.0 g/dL Hematocrit 36.6 33.0 37-47 % Mean Corpuscular Volume 86.1 87.1 80-100 fL Mean Corpuscular Hemoglobin 28.9 29.0 25-34 pg Mean Corpuscular Hemoglobin Concent 33.6 33.3 32-36 g/dl Platelet Count 166 133 130-400 K/uL Mean Platelet Volume 8.8 9.0 7.4-10.4 fL Neutrophils (%) (Auto) 82.5 % Lymphocytes (%) (Auto) 8.4 % Monocytes (%) (Auto) 8.1 % Eosinophils (%) (Auto) 0.4 % Basophils (%) (Auto) 0.3 % Neutrophils # (Auto) 5.97 1.4-6.5 K/uL Lymphocytes # (Auto) 0.61 1.2-3.4 K/uL Monocytes # (Auto) 0.59 0.11-0.59 K/uL Eosinophils # (Auto) 0.03 0-0.5 K/uL Basophils # (Auto) 0.02 0-0.2 K/uL RDW Standard Deviation 44.7 47.3 36.4-46.3 fL RDW Coefficient of Variation 14.3 14.8 11.5-14.5 % Immature Granulocyte % (Auto) 0.3 % Immature Granulocyte # (Auto) 0.02 0.00-0.02 K/uL Prothrombin Time 10.2 9.0-12.0 SECONDS Prothromb Time International Ratio 1.0 0.9-1.1 Activated Partial Thromboplast Time 23.8 21.0-31.0 SECONDS Partial Thromboplastin Ratio 0.9 Sodium Level 141 138 136-145 mmol/L Potassium Level 3.5 3.5 3.5-5.1 mmol/L Chloride Level 104 106 98-107 mmol/L Carbon Dioxide Level 24 23 21-32 mmol/L Anion Gap 13.0 9.0 3-11 mmol/L Blood Urea Nitrogen 18 15 7-18 mg/dl Creatinine 1.00 0.86 0.60-1.20 mg/dl Est Creatinine Clear Calc Drug Dose 90.5 105.3 ml/min Estimated GFR () 75.5 90.7 Estimated GFR (Non- 65.2 78.2 BUN/Creatinine Ratio 17.7 17.1 10-20 Random Glucose 132 140 70-99 mg/dl Calcium Level 9.3 8.4 8.5-10.1 mg/dl Total Bilirubin 0.3 0.2-1 mg/dl Aspartate Amino Transf (AST/SGOT) 29 15-37 U/L Alanine Aminotransferase (ALT/SGPT) 44 12-78 U/L Alkaline Phosphatase 65 45-117 U/L Total Protein 7.4 6.4-8.2 gm/dl Albumin 3.6 3.4-5.0 gm/dl Globulin 3.8 2.5-4.0 gm/dl Albumin/Globulin Ratio 0.9 0.9-2 Thyroid Stimulating Hormone (TSH) 0.952 0.300-4.500 uIu/ml Chemistry Specimen Hemolysis Lyme Disease IgG Antibody NEG NEG Lyme Disease IgM Antibody NEG NEG Urine Color YELLOW Urine Appearance CLEAR CLEAR Urine pH 5.0 4.5-7.5 Urine Specific [place] 1.021 1.000-1.030 Urine Protein NEG NEG Urine Glucose (UA) NEG NEG Urine Ketones TRACE NEG Urine Occult Blood NEG NEG Urine Nitrite NEG NEG Urine Bilirubin NEG NEG Urine Urobilinogen NEG NEG Urine Leukocyte Esterase NEG NEG Urine WBC (Auto) 1-5 0-5 /hpf Urine RBC (Auto) 0-4 0-4 /hpf Urine Hyaline Casts (Auto) 0 0-5 /lpf Urine Epithelial Cells (Auto) >30 0-5 /lpf Urine Bacteria (Auto) NEG NEG Bedside Lactic Acid Venous 1.79 0.90-1.70 mmol/L Microbiology Results 11/11/16 Blood Culture, Received Pending 11/11/16 Blood Culture, Received Pending
[2016-11-12] MEDS: TAMOXIFEN CITRATE 10 MG TAB PO SCH (20:53)
[2016-11-12 23:09] VITALS: BP 151/86; PULSE 95; TEMP 37.9; O2SAT 93
[2016-11-13 02:22] VITALS: TEMP 37.3
[2016-11-13] MEDS: SODIUM CHLORIDE 0.9% 1000ML 1,000 ML IV SCH ×2 (02:23→15:40)
[2016-11-13] MEDS: HEPARIN SOD 5000 UNIT/0.5 ML CARP SQ SCH ×3 (05:36→20:39)
[2016-11-13] MEDS: LEVOTHYROXINE 50 MCG TAB PO SCH (05:36)
[2016-11-13] MEDS: OXYCODONE/ACETAMINOPHEN 5-325 TAB PO PRN ×3 (05:37→13:50)
[2016-11-13 06:28] LABS: HEMATOCRIT 33.9 % (37-47); MEAN CELL VOLUME 84.5 fL (80-100); MEAN CORPUSCULAR HEMOGLOBIN 27.4 pg (25-34); MEAN CORPUSCULAR HGB CONC 32.4 g/dl (32-36); MEAN PLATELET VOLUME 8.7 fL (7.4-10.4); PLATELET COUNT 133 K/uL (130-400); RED BLOOD COUNT 4.01 M/uL (4.2-5.4); WHITE BLOOD COUNT 6.16 K/uL (4.8-10.8)
[2016-11-13 07:04] LABS: BUN/CREATININE RATIO 13.7 (10-20); CALCIUM 8.1 mg/dl (8.5-10.1); CREATININE 0.64 mg/dl (0.60-1.20); POTASSIUM 3.7 mmol/L (3.5-5.1)
[2016-11-13 07:05] LABS: BASO % 0.2 %; BASO ABS # 0.01 K/uL (0-0.2); COMPLETE YES; EOS % 0.2 %; IG% 0.2 %; LYMPH % 8.1 %; MONO % 10.1 %; NEUT % 81.2 %
[2016-11-13 08:12] VITALS: BP 129/83; PULSE 88; TEMP 36.8; O2SAT 93
[2016-11-13 08:41] VITALS: O2SAT 93
[2016-11-13] MEDS: CEROVITE ADV FORMULA TAB PO SCH (09:17)
[2016-11-13] MEDS: GABAPENTIN 600 MG TAB PO SCH ×3 (09:18→20:35)
[2016-11-13] MEDS: PANTOprazole SOD 40 MG TAB PO SCH (09:18)
[2016-11-13] MEDS: ONDANSETRON INJ 2 MG/ML 2 ML VIAL IV PRN ×2 (09:21→15:40)
[2016-11-13 15:10] VITALS: BP 138/91; PULSE 91; TEMP 36.4; O2SAT 94
[2016-11-13] MEDS: IBUPROFEN 600 MG TAB PO PRN (18:13)
--- NOTE | 2016-11-13 19:56 | Progress Note ---
Medicine Progress Note Date & Time of Visit: Nov 13, 2016 at 19:49. Subjective states her back pain is improving gradually reports frontal headache typical of her migraine no neuro symptoms reports ~15 times diarrhea today no abdominal pain ,nausea no other symptoms Objective Last 8 Hrs Date Time Temp Pulse Resp B/P (MAP) Pulse Ox O2 Delivery O2 Flow Rate FiO2 11/13/16 15:10 Room Air 11/13/16 15:10 36.4 91 16 138/91 (107) 94 Room Air Physical Exam: General- oriented x 3, not in distress, speaks in sentences with no effort Head- atraumatic Eyes- EOMI, anicteric ENT- oropharynx clear Neck- supple, no JVD, no adenopathy Lungs- clear to auscultation b/l Heart- regular rhythm; no murmur, normal rate Abdomen- hyperactive bowel sounds, soft, nontender Extremities- no pretibial edema, no calf tenderness Neuro- alert, oriented x 3;no gross focal deficits Back- mild tenderness on the lower back no erythema/warmth Skin- warm & dry Laboratory Results: Last 24 Hours Test 11/13/16 05:53 White Blood Count 6.16 K/uL Red Blood Count 4.01 M/uL Hemoglobin 11.0 g/dL Hematocrit 33.9 % Mean Corpuscular Volume 84.5 fL Mean Corpuscular Hemoglobin 27.4 pg Mean Corpuscular Hemoglobin Concent 32.4 g/dl Platelet Count 133 K/uL Mean Platelet Volume 8.7 fL Neutrophils (%) (Auto) 81.2 % Lymphocytes (%) (Auto) 8.1 % Monocytes (%) (Auto) 10.1 % Eosinophils (%) (Auto) 0.2 % Basophils (%) (Auto) 0.2 % Neutrophils # (Auto) 5.01 K/uL Lymphocytes # (Auto) 0.50 K/uL Monocytes # (Auto) 0.62 K/uL Eosinophils # (Auto) 0.01 K/uL Basophils # (Auto) 0.01 K/uL RDW Standard Deviation 44.1 fL RDW Coefficient of Variation 14.2 % Immature Granulocyte % (Auto) 0.2 % Immature Granulocyte # (Auto) 0.01 K/uL Sodium Level 138 mmol/L Potassium Level 3.7 mmol/L Chloride Level 105 mmol/L Carbon Dioxide Level 25 mmol/L Anion Gap 8.0 mmol/L Blood Urea Nitrogen 9 mg/dl Creatinine 0.64 mg/dl Est Creatinine Clear Calc Drug Dose 141.5 ml/min Estimated GFR () 119.7 Estimated GFR (Non- 103.3 BUN/Creatinine Ratio 13.7 Random Glucose 129 mg/dl Calcium Level 8.1 mg/dl Date/Time Source Procedure Growth Status 11/13/16 00:00 Stool C.difficile Toxin B Gene (PCR) - Final No C. difficile toxin B gene detected Complete Assessment & Plan 51 female with history of R sided breast CA, HTN, Hypothyroidism, presenting with back pain and fever. Fevers/Chills/Weakness: Possible Acute Gastroenteritis -CXR negative -UA negative -Dopplers shows no DVT -- (+) low grade fever with 15 episodes of diarrhea -- will start empiric Cipro IV for now continue IV fluids Loperamide PRN C diff negative Headache possible Migraine PRN Ibuprofen Low Back Pain: With hx. of lumbar surgeries in [address] Chavez -Continue gabapentin - transition to Tramadol PO -PT/OT Evaluation - improving Hypertension: Holding Hyzaar Hypothyroidism: Continue Synthroid Right Breast CA: F/U f with oncology as outpatient q6 months for follow-up DVT Prophylaxis: Sq Heparin. Code Status: FULL CODE Disposition: pending lives at home Current Inpatient Medications: Current Inpatient Medications Medications (Trade) Dose Ordered Sig/Tatyana Route Start Time Stop Time Status Last Admin Dose Admin Heparin Sodium (Porcine) (Heparin Sq 5000 Unit/0.5ml) 5,000 unit Q8H SQ 11/12/16 06:00 12/12/16 05:59 11/13/16 13:46 5,000 UNIT Acetaminophen (Tylenol Tab) 650 mg Q4H PRN PO 11/11/16 23:45 12/11/16 23:44 Al Hydrox/Mg Hydrox/Simethicone (Maalox Max Susp) 15 ml Q4H PRN PO 11/11/16 23:45 12/11/16 23:44 Magnesium Hydroxide (Milk Of Magnesia Susp) 30 ml Q6H PRN PO 11/11/16 23:45 12/11/16 23:44 Polyethylene (Miralax Powder Packet) 17 gm DAILY PRN PO 11/11/16 23:45 12/11/16 23:44 Ondansetron HCl (Zofran Inj) 4 mg Q6H PRN IV 11/11/16 23:45 12/11/16 23:44 11/13/16 15:40 4 MG Gabapentin (Neurontin Tab) 600 mg TID PO 11/12/16 09:00 12/12/16 08:59 11/13/16 14:20 600 MG Tamoxifen Citrate (Nolvadex Tab) 20 mg QPM PO 11/12/16 21:00 12/12/16 20:59 11/12/16 20:53 20 MG Lorazepam (Ativan Tab) 0.5 mg TID PRN PO 11/11/16 23:45 12/11/16 23:44 Multivitamins/ Minerals (Multivitamin W/ Minerals Tab) 1 tab QAM PO 11/12/16 09:00 12/12/16 08:59 11/13/16 09:17 1 TAB Levothyroxine Sodium (Synthroid Tab) 50 mcg DAILYBB PO 11/12/16 06:00 12/12/16 06:59 11/13/16 05:36 50 MCG Pantoprazole Sodium (Protonix Tab) 40 mg QAM PO 11/12/16 09:00 12/12/16 08:59 11/13/16 09:18 40 MG Morphine Sulfate (MoRPHine SULFATE INJ) 1 mg Q4 PRN IV 11/12/16 00:00 11/26/16 00:00 11/12/16 19:50 1 MG Sodium Chloride 1,000 ml @ 125 mls/hr Q8H IV 11/12/16 02:30 12/12/16 02:29 11/13/16 15:40 80 MLS/HR Ibuprofen (Motrin Tab) 600 mg TID PRN PO 11/13/16 17:30 12/13/16 17:29 11/13/16 18:13 600 MG Tramadol HCl (Ultram Tab) 50 mg Q6H PRN PO 11/13/16 19:45 12/13/16 19:44 UNV Lidocaine (Lidoderm Patch 5%) 1 patch QAM TD 11/14/16 09:00 12/14/16 08:59 UNV Lidocaine (Lidoderm Patch 5%) 1 patch 1945 ONCE TD 11/13/16 19:45 11/13/16 19:46 UNV Miscellaneous (Remove Lidoderm Patch) 1 ea DAILY@21 N/A 7/11/17 21:00 12/13/16 20:59 UNV Loperamide HCl (Imodium Cap) 2 mg UD PRN PO 11/13/16 19:45 12/13/16 19:44 UNV
[2016-11-13] MEDS ORDERED: LIDODERM (LIDOCAINE) PATCH 5% TD ONE (20:15)
[2016-11-13] MEDS: CIPROFLOXACIN / D5W 400 MG in PREMIXED IN D5W 200 ML IV SCH (20:33)
[2016-11-13] MEDS: TAMOXIFEN CITRATE 10 MG TAB PO SCH (20:38)
[2016-11-13 22:46] VITALS: BP 127/85; PULSE 85; TEMP 37.5; O2SAT 95
[2016-11-14] MEDS: IBUPROFEN 600 MG TAB PO PRN ×3 (01:11→18:42)
[2016-11-14] MEDS: LOPERAMIDE HCL 2 MG CAP PO PRN ×2 (01:11→07:39)
[2016-11-14] MEDS: SODIUM CHLORIDE 0.9% 1000ML 1,000 ML IV SCH ×3 (02:06→17:35)
[2016-11-14] MEDS: LEVOTHYROXINE 50 MCG TAB PO SCH (05:19)
[2016-11-14] MEDS: HEPARIN SOD 5000 UNIT/0.5 ML CARP SQ SCH ×3 (05:24→21:28)
[2016-11-14] MEDS: TRAMADOL HCL 50 MG TAB PO PRN ×3 (07:39→20:12)
[2016-11-14] MEDS: ONDANSETRON INJ 2 MG/ML 2 ML VIAL IV PRN ×2 (07:41→14:07)
[2016-11-14 07:58] VITALS: BP 130/82; PULSE 84; TEMP 37; O2SAT 94
[2016-11-14 08:08] VITALS: O2SAT 94
[2016-11-14] MEDS: PANTOprazole SOD 40 MG TAB PO SCH (09:00)
[2016-11-14] MEDS: GABAPENTIN 600 MG TAB PO SCH ×3 (09:00→21:09)
[2016-11-14] MEDS: CEROVITE ADV FORMULA TAB PO SCH (09:00)
[2016-11-14] MEDS: CIPROFLOXACIN / D5W 400 MG in PREMIXED IN D5W 200 ML IV SCH ×2 (09:00→21:08)
[2016-11-14] MEDS: LIDODERM (LIDOCAINE) PATCH 5% TD SCH (09:22)
[2016-11-14 15:41] VITALS: BP 136/95; PULSE 78; TEMP 37; O2SAT 94
--- NOTE | 2016-11-14 19:48 | Progress Note ---
Medicine Progress Note Date & Time of Visit: Nov 14, 2016 at 19:44. Subjective patient seen resting in bed states diarrhea has improved this afternoon, no abdominal pain, nausea still has right sided headache, no neuro symptoms, relieved by PRN analgesics back pain improving denies any other symptoms Objective Last 8 Hrs Date Time Temp Pulse Resp B/P (MAP) Pulse Ox O2 Delivery O2 Flow Rate FiO2 11/14/16 15:41 37.0 78 16 136/95 (109) 94 Room Air 11/14/16 15:40 Room Air Physical Exam: General- oriented x 3, not in distress, speaks in sentences with no effort Eyes- anicteric Neck- no JVD Lungs- clear breath sounds bilaterally Heart- regular rhythm; no murmur, normal rate Abdomen- normal bowel sounds, soft, nontender Extremities- no pretibial edema, no calf tenderness Neuro- alert, oriented x 3;no gross focal deficits Back- mild tenderness on the lower back no erythema/warmth Skin- warm & dry Laboratory Results: Last 24 Hours Test 11/14/16 19:16 Assessment & Plan 51 female with history of R sided breast CA, HTN, Hypothyroidism, presenting with back pain and fever. Acute Gastroenteritis - presented with fever, then developed diarrhea -CXR negative -UA negative -Dopplers shows no DVT -- C diff negative -- improving continue Cipro day 2 continue IV fluids Loperamide PRN Headache possible Migraine PRN Ibuprofen, Tramadol improving Low Back Pain: - With hx. of lumbar surgeries in [address] Chavez -Continue gabapentin - PRN Tramadol -PT/OT Evaluation - improving Hypertension: Holding Hyzaar Hypothyroidism: Continue Synthroid Right Breast CA: F/U f with oncology as outpatient q6 months for follow-up DVT Prophylaxis: Sq Heparin. Code Status: FULL CODE Disposition: pending lives at home Current Inpatient Medications: Current Inpatient Medications Medications (Trade) Dose Ordered Sig/Tatyana Route Start Time Stop Time Status Last Admin Dose Admin Heparin Sodium (Porcine) (Heparin Sq 5000 Unit/0.5ml) 5,000 unit Q8H SQ 11/12/16 06:00 12/12/16 05:59 11/14/16 05:24 5,000 UNIT Acetaminophen (Tylenol Tab) 650 mg Q4H PRN PO 11/11/16 23:45 12/11/16 23:44 Al Hydrox/Mg Hydrox/Simethicone (Maalox Max Susp) 15 ml Q4H PRN PO 11/11/16 23:45 12/11/16 23:44 Magnesium Hydroxide (Milk Of Magnesia Susp) 30 ml Q6H PRN PO 11/11/16 23:45 12/11/16 23:44 Polyethylene (Miralax Powder Packet) 17 gm DAILY PRN PO 11/11/16 23:45 12/11/16 23:44 Ondansetron HCl (Zofran Inj) 4 mg Q6H PRN IV 11/11/16 23:45 12/11/16 23:44 11/14/16 14:07 4 MG Gabapentin (Neurontin Tab) 600 mg TID PO 11/12/16 09:00 12/12/16 08:59 11/14/16 14:46 600 MG Tamoxifen Citrate (Nolvadex Tab) 20 mg QPM PO 11/12/16 21:00 12/12/16 20:59 11/13/16 20:38 20 MG Lorazepam (Ativan Tab) 0.5 mg TID PRN PO 11/11/16 23:45 12/11/16 23:44 Multivitamins/ Minerals (Multivitamin W/ Minerals Tab) 1 tab QAM PO 11/12/16 09:00 12/12/16 08:59 11/14/16 09:00 1 TAB Levothyroxine Sodium (Synthroid Tab) 50 mcg DAILYBB PO 11/12/16 06:00 12/12/16 06:59 11/14/16 05:19 50 MCG Pantoprazole Sodium (Protonix Tab) 40 mg QAM PO 11/12/16 09:00 12/12/16 08:59 11/14/16 09:00 40 MG Morphine Sulfate (MoRPHine SULFATE INJ) 1 mg Q4 PRN IV 11/12/16 00:00 11/26/16 00:00 11/12/16 19:50 1 MG Sodium Chloride 1,000 ml @ 125 mls/hr Q8H IV 11/12/16 02:30 12/12/16 02:29 11/14/16 17:35 125 MLS/HR Tramadol HCl (Ultram Tab) 50 mg Q6H PRN PO 11/13/16 19:45 12/13/16 19:44 11/14/16 14:07 50 MG Lidocaine (Lidoderm Patch 5%) 1 patch QAM TD 11/14/16 09:00 12/14/16 08:59 11/14/16 09:22 1 PATCH Miscellaneous (Remove Lidoderm Patch) 1 ea DAILY@21 N/A 11/14/16 21:00 12/14/16 20:59 Loperamide HCl (Imodium Cap) 2 mg UD PRN PO 11/13/16 19:45 12/13/16 19:44 11/14/16 07:39 2 MG Ciprofloxacin/ Dextrose 400 mg/ Prmx 200 ml @ 100 mls/hr Q12 IV 11/13/16 21:00 11/23/16 20:59 11/14/16 09:00 100 MLS/HR Ibuprofen (Motrin Tab) 600 mg TID PRN PO 11/14/16 09:00 12/14/16 08:59 11/14/16 18:42 600 MG
[2016-11-14 19:58] LABS: BASO % 0.2 %; BASO ABS # 0.01 K/uL (0-0.2); COMPLETE YES; EOS % 0.4 %; HEMATOCRIT 31.6 % (37-47); IG% 0.2 %; LYMPH ABS # 0.86 K/uL (1.2-3.4); MEAN CELL VOLUME 85.6 fL (80-100); MEAN CORPUSCULAR HEMOGLOBIN 28.2 pg (25-34); MEAN CORPUSCULAR HGB CONC 32.9 g/dl (32-36); MEAN PLATELET VOLUME 8.8 fL (7.4-10.4); MONO % 12.3 %; NEUT % 69.9 %; PLATELET COUNT 139 K/uL (130-400); RED BLOOD COUNT 3.69 M/uL (4.2-5.4); WHITE BLOOD COUNT 5.05 K/uL (4.8-10.8)
[2016-11-14 20:17] LABS: BUN/CREATININE RATIO 7.9 (10-20); CALCIUM 8.6 mg/dl (8.5-10.1); CREATININE 0.75 mg/dl (0.60-1.20); POTASSIUM 3.3 mmol/L (3.5-5.1)
[2016-11-14] MEDS ORDERED: POTASSIUM CHLORIDE 20 MEQ TABCR PO ONE (21:00)
[2016-11-14] MEDS: TAMOXIFEN CITRATE 10 MG TAB PO SCH (21:12)
[2016-11-14 23:05] VITALS: BP 142/86; PULSE 86; TEMP 36.8; O2SAT 93
[2016-11-15] MEDS: SODIUM CHLORIDE 0.9% 1000ML 1,000 ML IV SCH ×3 (01:01→17:18)
[2016-11-15] MEDS: IBUPROFEN 600 MG TAB PO PRN ×2 (01:02→07:29)
[2016-11-15] MEDS: HEPARIN SOD 5000 UNIT/0.5 ML CARP SQ SCH ×3 (06:00→21:19)
[2016-11-15] MEDS: LEVOTHYROXINE 50 MCG TAB PO SCH (06:19)
[2016-11-15] MEDS: LOPERAMIDE HCL 2 MG CAP PO PRN (06:28)
[2016-11-15 07:20] VITALS: O2SAT 94
[2016-11-15 07:50] VITALS: BP 148/92; PULSE 81; TEMP 36.9; O2SAT 94
[2016-11-15 07:59] VITALS: O2SAT 94
[2016-11-15] MEDS: CIPROFLOXACIN / D5W 400 MG in PREMIXED IN D5W 200 ML IV SCH (08:57)
[2016-11-15] MEDS: LIDODERM (LIDOCAINE) PATCH 5% TD SCH (08:58)
[2016-11-15] MEDS: GABAPENTIN 600 MG TAB PO SCH ×3 (08:59→21:19)
[2016-11-15] MEDS: CEROVITE ADV FORMULA TAB PO SCH (08:59)
[2016-11-15] MEDS: PANTOprazole SOD 40 MG TAB PO SCH (08:59)
[2016-11-15 14:54] VITALS: BP 124/76; PULSE 86; TEMP 37.1; O2SAT 98
--- NOTE | 2016-11-15 17:28 | Progress Note ---
Medicine Progress Note Date & Time of Visit: Nov 15, 2016 at 17:25. Subjective patient seen resting in bed, with his Pat at the bedside states she still had diarrhea this morning around 6 times, no abdominal pain, tolerating diet, none yet this afternoon headache improving backpain also improving was able to ambulate in the halls with mild back pain otherwise no other symptoms Objective Last 8 Hrs Date Time Temp Pulse Resp B/P (MAP) Pulse Ox O2 Delivery O2 Flow Rate FiO2 11/15/16 15:06 Room Air 11/15/16 14:54 37.1 86 16 124/76 (92) 98 Room Air Physical Exam: General- oriented x 3, not in distress, speaks in sentences with no effort Eyes- anicteric Neck- no JVD Lungs- clear , no rales/wheezes, bilaterally Heart- regular rhythm; no murmur, normal rate Abdomen- normal bowel sounds, soft, nontender Extremities- no pretibial edema, no calf tenderness Neuro- alert, oriented x 3;no gross focal deficits Back- mild tenderness on the lower back no erythema/warmth Skin- warm & dry Laboratory Results: Last 24 Hours Test 11/14/16 19:47 11/15/16 17:00 White Blood Count 5.05 K/uL Red Blood Count 3.69 M/uL Hemoglobin 10.4 g/dL Hematocrit 31.6 % Mean Corpuscular Volume 85.6 fL Mean Corpuscular Hemoglobin 28.2 pg Mean Corpuscular Hemoglobin Concent 32.9 g/dl Platelet Count 139 K/uL Mean Platelet Volume 8.8 fL Neutrophils (%) (Auto) 69.9 % Lymphocytes (%) (Auto) 17.0 % Monocytes (%) (Auto) 12.3 % Eosinophils (%) (Auto) 0.4 % Basophils (%) (Auto) 0.2 % Neutrophils # (Auto) 3.53 K/uL Lymphocytes # (Auto) 0.86 K/uL Monocytes # (Auto) 0.62 K/uL Eosinophils # (Auto) 0.02 K/uL Basophils # (Auto) 0.01 K/uL RDW Standard Deviation 45.2 fL RDW Coefficient of Variation 14.3 % Immature Granulocyte % (Auto) 0.2 % Immature Granulocyte # (Auto) 0.01 K/uL Sodium Level 143 mmol/L Potassium Level 3.3 mmol/L Chloride Level 108 mmol/L Carbon Dioxide Level 27 mmol/L Anion Gap 8.0 mmol/L Blood Urea Nitrogen 6 mg/dl Creatinine 0.75 mg/dl Est Creatinine Clear Calc Drug Dose 120.7 ml/min Estimated GFR () 107.0 Estimated GFR (Non- 92.3 BUN/Creatinine Ratio 7.9 Random Glucose 102 mg/dl Calcium Level 8.6 mg/dl Assessment & Plan 51 female with history of R sided breast CA, HTN, Hypothyroidism, presenting with back pain and fever. Acute Gastroenteritis - presented with fever, then developed diarrhea -CXR negative -UA negative -Dopplers shows no DVT -- C diff negative -- improving gradually repeat C dif and stool cultures today continue Cipro day 3 continue IV fluids Loperamide PRN Headache possible Migraine PRN Ibuprofen, Tramadol improving Low Back Pain: - With hx. of lumbar surgeries in [address] Chavez -Continue gabapentin - PRN Tramadol -PT/OT Evaluation - improving Hypertension: Holding Hyzaar Hypothyroidism: Continue Synthroid Right Breast CA: F/U f with oncology as outpatient q6 months for follow-up DVT Prophylaxis: Patient declines Sq Heparin. ordered SCDs. encouraged ambulation. Code Status: FULL CODE Disposition: pending lives at home Current Inpatient Medications: Current Inpatient Medications Medications (Trade) Dose Ordered Sig/Tatyana Route Start Time Stop Time Status Last Admin Dose Admin Heparin Sodium (Porcine) (Heparin Sq 5000 Unit/0.5ml) 5,000 unit Q8H SQ 11/12/16 06:00 12/12/16 05:59 11/14/16 05:24 5,000 UNIT Acetaminophen (Tylenol Tab) 650 mg Q4H PRN PO 11/11/16 23:45 12/11/16 23:44 Al Hydrox/Mg Hydrox/Simethicone (Maalox Max Susp) 15 ml Q4H PRN PO 11/11/16 23:45 12/11/16 23:44 Magnesium Hydroxide (Milk Of Magnesia Susp) 30 ml Q6H PRN PO 11/11/16 23:45 12/11/16 23:44 Polyethylene (Miralax Powder Packet) 17 gm DAILY PRN PO 11/11/16 23:45 12/11/16 23:44 Ondansetron HCl (Zofran Inj) 4 mg Q6H PRN IV 11/11/16 23:45 12/11/16 23:44 11/14/16 14:07 4 MG Gabapentin (Neurontin Tab) 600 mg TID PO 11/12/16 09:00 12/12/16 08:59 11/15/16 14:02 600 MG Tamoxifen Citrate (Nolvadex Tab) 20 mg QPM PO 11/12/16 21:00 12/12/16 20:59 11/14/16 21:12 20 MG Lorazepam (Ativan Tab) 0.5 mg TID PRN PO 11/11/16 23:45 12/11/16 23:44 Multivitamins/ Minerals (Multivitamin W/ Minerals Tab) 1 tab QAM PO 11/12/16 09:00 12/12/16 08:59 11/15/16 08:59 1 TAB Levothyroxine Sodium (Synthroid Tab) 50 mcg DAILYBB PO 11/12/16 06:00 12/12/16 06:59 11/15/16 06:19 50 MCG Pantoprazole Sodium (Protonix Tab) 40 mg QAM PO 11/12/16 09:00 12/12/16 08:59 11/15/16 08:59 40 MG Morphine Sulfate (MoRPHine SULFATE INJ) 1 mg Q4 PRN IV 11/12/16 00:00 11/26/16 00:00 11/12/16 19:50 1 MG Sodium Chloride 1,000 ml @ 125 mls/hr Q8H IV 11/12/16 02:30 12/12/16 02:29 11/15/16 17:18 125 MLS/HR Tramadol HCl (Ultram Tab) 50 mg Q6H PRN PO 11/13/16 19:45 12/13/16 19:44 11/14/16 20:12 50 MG Lidocaine (Lidoderm Patch 5%) 1 patch QAM TD 11/14/16 09:00 12/14/16 08:59 11/15/16 08:58 1 PATCH Miscellaneous (Remove Lidoderm Patch) 1 ea DAILY@21 N/A 11/14/16 21:00 12/14/16 20:59 11/14/16 21:10 1 EA Loperamide HCl (Imodium Cap) 2 mg UD PRN PO 11/13/16 19:45 12/13/16 19:44 11/15/16 06:28 2 MG Ibuprofen (Motrin Tab) 600 mg TID PRN PO 11/14/16 09:00 12/14/16 08:59 11/15/16 07:29 600 MG Ciprofloxacin (Cipro Tab) 500 mg BID PO 11/15/16 21:00 11/23/16 20:59
[2016-11-15 18:20] LABS: BUN/CREATININE RATIO 6.9 (10-20); CALCIUM 8.4 mg/dl (8.5-10.1); CREATININE 0.72 mg/dl (0.60-1.20); POTASSIUM 3.9 mmol/L (3.5-5.1)
[2016-11-15] MEDS: CIPROFLOXACIN 500 MG TAB PO SCH (21:16)
[2016-11-15] MEDS: TAMOXIFEN CITRATE 10 MG TAB PO SCH (21:18)
[2016-11-15 22:47] VITALS: BP 151/87; PULSE 96; TEMP 37; O2SAT 92
[2016-11-16] MEDS: SODIUM CHLORIDE 0.9% 1000ML 1,000 ML IV SCH ×3 (01:12→21:14)
[2016-11-16] MEDS: ACETAMINOPHEN 325 MG TAB PO PRN ×2 (01:15→07:50)
[2016-11-16] MEDS: LEVOTHYROXINE 50 MCG TAB PO SCH (05:55)
[2016-11-16] MEDS: HEPARIN SOD 5000 UNIT/0.5 ML CARP SQ SCH ×3 (05:55→21:15)
[2016-11-16 07:30] VITALS: BP 160/100; PULSE 84; TEMP 36.8; O2SAT 93
[2016-11-16 07:57] VITALS: O2SAT 93
[2016-11-16] MEDS: CEROVITE ADV FORMULA TAB PO SCH (09:02)
[2016-11-16] MEDS: CIPROFLOXACIN 500 MG TAB PO SCH ×2 (09:02→21:15)
[2016-11-16] MEDS: PANTOprazole SOD 40 MG TAB PO SCH (09:03)
[2016-11-16] MEDS: GABAPENTIN 600 MG TAB PO SCH ×3 (09:03→21:15)
[2016-11-16] MEDS: LIDODERM (LIDOCAINE) PATCH 5% TD SCH (09:04)
[2016-11-16] MEDS ORDERED: CYCLOBENZAPRINE HCL 5 MG TAB PO ONE (13:18)
--- NOTE | 2016-11-16 13:23 | Progress Note ---
Medicine Progress Note Date & Time of Visit: Nov 16, 2016 at 13:22. Subjective patient seen resting in bed not in distress reports persistent right sided headache, right eye sensitivity to light right neck pain worse with moving diarrhea continues to improve, tolerating diet well back pain also improving denies other symptoms Objective Last 8 Hrs Date Time Temp Pulse Resp B/P (MAP) Pulse Ox O2 Delivery O2 Flow Rate FiO2 11/16/16 07:57 93 Room Air 11/16/16 07:35 Room Air 11/16/16 07:30 36.8 84 16 160/100 (120) 93 Room Air Physical Exam: General- oriented x 3, not in distress, speaks in sentences with no effort Eyes- anicteric Neck- no JVD (+) tenderness on the muscles posterior region, right side pain with ROM rotating head to the right Lungs- clear breath sounds bilaterally Heart- regular rhythm; no murmur, normal rate Abdomen- normal bowel sounds, soft, nontender Extremities- no pretibial edema, no calf tenderness Neuro- alert, oriented x 3;no gross focal deficits Back- NO tenderness on the lower back no erythema/warmth Skin- warm & dry Laboratory Results: Last 24 Hours Test 11/15/16 17:39 Sodium Level 143 mmol/L Potassium Level 3.9 mmol/L Chloride Level 110 mmol/L Carbon Dioxide Level 23 mmol/L Anion Gap 10.0 mmol/L Blood Urea Nitrogen 5 mg/dl Creatinine 0.72 mg/dl Est Creatinine Clear Calc Drug Dose 125.7 ml/min Estimated GFR () 112.4 Estimated GFR (Non- 97.0 BUN/Creatinine Ratio 6.9 Random Glucose 108 mg/dl Calcium Level 8.4 mg/dl Date/Time Source Procedure Growth Status 11/16/16 08:20 Stool C.difficile Toxin B Gene (PCR) - Final No C. difficile toxin B gene detected Complete 11/16/16 08:20 Stool Shiga Toxin Test Pending Received 11/16/16 08:20 Stool Stool Culture Pending Received Assessment & Plan 51 female with history of R sided breast CA, HTN, Hypothyroidism, presenting with back pain and fever. Headache possible Migraine persistent check CT head trial of Imitrex x 1 PRN Ibuprofen, Tramadol Acute Gastroenteritis - presented with fever, then developed diarrhea -CXR negative -UA negative -Dopplers shows no DVT -- C diff negative x 2 stool cultures pending -- improving gradually continue Cipro day 4 continue IV fluids Loperamide PRN Low Back Pain: - With hx. of lumbar surgeries in [address] Chavez -Continue gabapentin - PRN Tramadol -PT/OT Evaluation - improved Hypertension: Holding Hyzaar as patient has diarrhea add Clonidine PRN Hypothyroidism: Continue Synthroid Right Breast CA: F/U f with oncology as outpatient q6 months for follow-up on Tamoxifen DVT Prophylaxis: Patient declines Sq Heparin. ordered SCDs. encouraged ambulation. Code Status: FULL CODE Disposition: pending lives at home Current Inpatient Medications: Current Inpatient Medications Medications (Trade) Dose Ordered Sig/Tatyana Route Start Time Stop Time Status Last Admin Dose Admin Heparin Sodium (Porcine) (Heparin Sq 5000 Unit/0.5ml) 5,000 unit Q8H SQ 11/12/16 06:00 12/12/16 05:59 11/14/16 05:24 5,000 UNIT Acetaminophen (Tylenol Tab) 650 mg Q4H PRN PO 11/11/16 23:45 12/11/16 23:44 11/16/16 07:50 650 MG Al Hydrox/Mg Hydrox/Simethicone (Maalox Max Susp) 15 ml Q4H PRN PO 11/11/16 23:45 12/11/16 23:44 Magnesium Hydroxide (Milk Of Magnesia Susp) 30 ml Q6H PRN PO 11/11/16 23:45 12/11/16 23:44 Polyethylene (Miralax Powder Packet) 17 gm DAILY PRN PO 11/11/16 23:45 12/11/16 23:44 Ondansetron HCl (Zofran Inj) 4 mg Q6H PRN IV 11/11/16 23:45 12/11/16 23:44 11/14/16 14:07 4 MG Gabapentin (Neurontin Tab) 600 mg TID PO 11/12/16 09:00 12/12/16 08:59 11/16/16 09:03 600 MG Tamoxifen Citrate (Nolvadex Tab) 20 mg QPM PO 11/12/16 21:00 12/12/16 20:59 11/15/16 21:18 20 MG Lorazepam (Ativan Tab) 0.5 mg TID PRN PO 11/11/16 23:45 12/11/16 23:44 Multivitamins/ Minerals (Multivitamin W/ Minerals Tab) 1 tab QAM PO 11/12/16 09:00 12/12/16 08:59 11/16/16 09:02 1 TAB Levothyroxine Sodium (Synthroid Tab) 50 mcg DAILYBB PO 11/12/16 06:00 12/12/16 06:59 11/16/16 05:55 50 MCG Pantoprazole Sodium (Protonix Tab) 40 mg QAM PO 11/12/16 09:00 12/12/16 08:59 11/16/16 09:03 40 MG Morphine Sulfate (MoRPHine SULFATE INJ) 1 mg Q4 PRN IV 11/12/16 00:00 11/26/16 00:00 11/12/16 19:50 1 MG Sodium Chloride 1,000 ml @ 125 mls/hr Q8H IV 11/12/16 02:30 12/12/16 02:29 11/16/16 09:06 125 MLS/HR Tramadol HCl (Ultram Tab) 50 mg Q6H PRN PO 11/13/16 19:45 12/13/16 19:44 11/14/16 20:12 50 MG Lidocaine (Lidoderm Patch 5%) 1 patch QAM TD 11/14/16 09:00 12/14/16 08:59 11/16/16 09:04 1 PATCH Miscellaneous (Remove Lidoderm Patch) 1 ea DAILY@21 N/A 11/14/16 21:00 12/14/16 20:59 11/15/16 21:19 1 EA Loperamide HCl (Imodium Cap) 2 mg UD PRN PO 11/13/16 19:45 12/13/16 19:44 11/15/16 06:28 2 MG Ibuprofen (Motrin Tab) 600 mg TID PRN PO 11/14/16 09:00 12/14/16 08:59 11/15/16 07:29 600 MG Ciprofloxacin (Cipro Tab) 500 mg BID PO 11/15/16 21:00 11/23/16 20:59 11/16/16 09:02 500 MG Sumatriptan Succinate (Imitrex Tab) 25 mg ONE PO 11/16/16 13:30 12/16/16 13:29 UNV Cyclobenzaprine HCl (Flexeril Tab) 5 mg BID PRN PO 11/16/16 13:30 12/16/16 13:29 UNV Cyclobenzaprine HCl (Flexeril Tab) 5 mg 1318 ONCE PO 11/16/16 13:18 11/16/16 13:19 UNV
[2016-11-16] MEDS ORDERED: SUMATRIPTAN SUCCINATE 25 MG TAB PO ONE (13:30)
[2016-11-16] MEDS ORDERED: CYCLOBENZAPRINE HCL 5 MG TAB PO PRN (13:30)
--- NOTE | 2016-11-16 14:44 | DIAGNOSTIC IMAGING REPORT ---
HEAD WITHOUT CONTRAST (CT) CLINICAL HISTORY: 51 years-old Female presenting with persistent headache. TECHNIQUE: Multidetector CT imaging of the head was performed without the use of intravenous contrast. COMPARISON: None. CT DOSE: 614.27 mGy.cm FINDINGS: [employer] topogram: Unremarkable. Brain parenchyma normal in appearance with preserved adame-white differentiation. No mass effect or midline shift. No hemorrhage or acute territorial infarct. No hydrocephalus. No extra-axial fluid collection. Paranasal sinuses and mastoid air cells clear. Calvarium intact. IMPRESSION: No acute intracranial pathology. Electronically signed by: Isaac Rosenberg M.D. 11/16/2016 2:43 PM Dictated Date/Time: 11/16/2016 2:40 PM
[2016-11-16] MEDS ORDERED: CLONIDINE HCL 0.1 MG TAB PO PRN (14:45)
[2016-11-16 15:00] VITALS: BP 146/89; PULSE 69; TEMP 36.8; O2SAT 95
[2016-11-16] MEDS: TAMOXIFEN CITRATE 10 MG TAB PO SCH (21:17)
[2016-11-16 23:20] VITALS: BP 145/86; PULSE 95; TEMP 37; O2SAT 92
[2016-11-17] MEDS: HEPARIN SOD 5000 UNIT/0.5 ML CARP SQ SCH ×2 (05:45→13:41)
[2016-11-17] MEDS: LEVOTHYROXINE 50 MCG TAB PO SCH (05:45)
[2016-11-17 07:14] VITALS: BP 123/74; PULSE 77; TEMP 36.9; O2SAT 92
[2016-11-17 08:00] VITALS: O2SAT 92
[2016-11-17] MEDS: LIDODERM (LIDOCAINE) PATCH 5% TD SCH (08:36)
[2016-11-17] MEDS: CEROVITE ADV FORMULA TAB PO SCH (08:36)
[2016-11-17] MEDS: PANTOprazole SOD 40 MG TAB PO SCH (08:36)
[2016-11-17] MEDS: GABAPENTIN 600 MG TAB PO SCH ×2 (08:36→13:42)
[2016-11-17] MEDS: CIPROFLOXACIN 500 MG TAB PO SCH (08:37)
[2016-11-17] MEDS: SODIUM CHLORIDE 0.9% 1000ML 1,000 ML IV SCH (08:40)
[2016-11-17 15:06] VITALS: BP 123/74; PULSE 77; TEMP 36.9; O2SAT 92
--- NOTE | 2016-11-17 15:42 | Progress Note ---
Medicine Progress Note Date & Time of Visit: Nov 17, 2016 at 15:35. Subjective patient seen ambulating in bed in good spirits, comfortable states she feels much better headache has resolved diarrhea has resolved back pain much better denies other symptoms states she is ready and would like to be discharged today Objective Last 8 Hrs Date Time Temp Pulse Resp B/P (MAP) Pulse Ox O2 Delivery O2 Flow Rate FiO2 11/17/16 15:06 36.9 77 16 92 Room Air 11/17/16 08:00 92 Room Air Physical Exam: General- oriented x 3, not in distress, speaks in sentences with no effort Eyes- anicteric Neck- no JVD no tenderness, good ROM Lungs- clear breath sounds bilaterally Heart- regular rhythm; no murmur, normal rate Abdomen- normal bowel sounds, soft, nontender Extremities- no pretibial edema, no calf tenderness Neuro- alert, oriented x 3;no gross focal deficits Back- NO tenderness on the lower back no erythema/warmth Skin- warm & dry Assessment & Plan 51 female with history of R sided breast CA, HTN, Hypothyroidism, presenting with back pain and fever. Headache, likely Migraine right sided, with photophobia given Ibuprofen, Tramadol persisted given Imitrex, then resolved PRN Imitrex for Migraine headache Acute Gastroenteritis - presented with fever, then developed diarrhea -CXR negative -UA negative -Dopplers shows no DVT -- C diff negative x 2 -- given Ciprofloxacin x 4 days, IV fluids resolved finish3 more days of Cipro Low Back Pain: - With hx. of lumbar surgeries in [address] Chavez - given Tramadol PRN, Lidoderm patch, Warm compress PT/OT - improved Hypertension - continue usual medications Hypothyroidism - Continue Synthroid Right Breast CA: F/U f with oncology as outpatient q6 months for follow-up on Tamoxifen DVT Prophylaxis: Patient declines Sq Heparin. ordered SCDs. encouraged ambulation. Code Status: FULL CODE Disposition: d/c home ff up with PCP in 1 week Current Inpatient Medications: Current Inpatient Medications Medications (Trade) Dose Ordered Sig/Tatyana Route Start Time Stop Time Status Last Admin Dose Admin Heparin Sodium (Porcine) (Heparin Sq 5000 Unit/0.5ml) 5,000 unit Q8H SQ 11/12/16 06:00 12/12/16 05:59 11/14/16 05:24 5,000 UNIT Acetaminophen (Tylenol Tab) 650 mg Q4H PRN PO 11/11/16 23:45 12/11/16 23:44 11/16/16 07:50 650 MG Al Hydrox/Mg Hydrox/Simethicone (Maalox Max Susp) 15 ml Q4H PRN PO 11/11/16 23:45 12/11/16 23:44 Magnesium Hydroxide (Milk Of Magnesia Susp) 30 ml Q6H PRN PO 11/11/16 23:45 12/11/16 23:44 Polyethylene (Miralax Powder Packet) 17 gm DAILY PRN PO 11/11/16 23:45 12/11/16 23:44 Ondansetron HCl (Zofran Inj) 4 mg Q6H PRN IV 11/11/16 23:45 12/11/16 23:44 11/14/16 14:07 4 MG Gabapentin (Neurontin Tab) 600 mg TID PO 11/12/16 09:00 12/12/16 08:59 11/17/16 13:42 600 MG Tamoxifen Citrate (Nolvadex Tab) 20 mg QPM PO 11/12/16 21:00 12/12/16 20:59 11/16/16 21:17 20 MG Lorazepam (Ativan Tab) 0.5 mg TID PRN PO 11/11/16 23:45 12/11/16 23:44 Multivitamins/ Minerals (Multivitamin W/ Minerals Tab) 1 tab QAM PO 11/12/16 09:00 12/12/16 08:59 11/17/16 08:36 1 TAB Levothyroxine Sodium (Synthroid Tab) 50 mcg DAILYBB PO 11/12/16 06:00 12/12/16 06:59 11/17/16 05:45 50 MCG Pantoprazole Sodium (Protonix Tab) 40 mg QAM PO 11/12/16 09:00 12/12/16 08:59 11/17/16 08:36 40 MG Morphine Sulfate (MoRPHine SULFATE INJ) 1 mg Q4 PRN IV 11/12/16 00:00 11/26/16 00:00 11/12/16 19:50 1 MG Sodium Chloride 1,000 ml @ 75 mls/hr [id number] IV 11/12/16 02:30 12/12/16 02:29 11/17/16 08:40 75 MLS/HR Tramadol HCl (Ultram Tab) 50 mg Q6H PRN PO 11/13/16 19:45 12/13/16 19:44 11/14/16 20:12 50 MG Lidocaine (Lidoderm Patch 5%) 1 patch QAM TD 11/14/16 09:00 12/14/16 08:59 11/17/16 08:36 1 PATCH Miscellaneous (Remove Lidoderm Patch) 1 ea DAILY@21 N/A 11/14/16 21:00 12/14/16 20:59 11/16/16 21:14 1 EA Loperamide HCl (Imodium Cap) 2 mg UD PRN PO 11/13/16 19:45 12/13/16 19:44 11/15/16 06:28 2 MG Ibuprofen (Motrin Tab) 600 mg TID PRN PO 11/14/16 09:00 12/14/16 08:59 11/15/16 07:29 600 MG Ciprofloxacin (Cipro Tab) 500 mg BID PO 11/15/16 21:00 11/23/16 20:59 11/17/16 08:37 500 MG Cyclobenzaprine HCl (Flexeril Tab) 5 mg BID PRN PO 11/16/16 13:30 12/16/16 13:29 11/17/16 08:38 5 MG Clonidine HCl (Catapres Tab) 0.1 mg Q6H PRN PO 11/16/16 14:45 12/16/16 14:44
[2016-11-17] MEDS ORDERED: ULT50X PO (15:48)
[2016-11-17] MEDS ORDERED: SUMA25TA12 PO (15:48)
[2016-11-17] MEDS ORDERED: MTR600X PO (15:48)
[2016-11-17] MEDS ORDERED: CPR500 PO (15:48)
--- NOTE | 2016-11-17 15:56 | Discharge Summary ---
Discharge Summary Date of Service Nov 17, 2016. Discharge Summary Admission Date: Nov 11, 2016 at 23:46 Discharge Date: Nov 17, 2016 Discharge Disposition: Home Principal Diagnosis: Low Back Pain Secondary Diagnoses/Problems: Please refer to hospital course below. Procedures: CT LUMBAR SPINE: 1. No acute bony abnormality is seen involving the lumbar spine. 2. Osteopenia with mild degenerative as well as postoperative changes as above. This is similar to prior studies. CT ABDOMEN: 1. There are no acute infectious or inflammatory findings in the abdomen or pelvis. 2. Hepatomegaly and hepatic steatosis. Pending Studies/Follow-Up: Please refer to hospital course below. Medication Reconciliation New Medications: Sumatriptan Succinate (Imitrex) 25 Mg Tab 25 MG PO DAILY PRN for Migraine, #10 TAB use only for migraine type headache Ciprofloxacin (Ciprofloxacin HCl) 500 Mg Tab 500 MG PO BID for 3 Days, #6 TAB 0 Refills Ibuprofen (Ibuprofen) 600 Mg Tab 600 MG PO TID PRN for back pain or headache for 7 Days, #21 TAB always take with food Tramadol HCl (Tramadol HCl) 50 Mg Tab 50 MG PO Q6H PRN for severe back pain, #10 TAB 0 Refills Continued Medications: Gabapentin (Neurontin) 300 Mg Cap 600 MG PO TID, CAP Hctz/Losartan (Hyzaar 12.5MG/50MG) Tab 0.5 TAB PO DAILY, TAB Levothyroxine Sodium (Synthroid) 50 Mcg Tab Lorazepam (Ativan) Unknown Strength Tab 0.5 MG PO TID PRN for Anxiety, TAB Multiple Vitamins W/ Minerals (Womens Multi) 1 Cap Cap 1 CAP PO DAILY Ondansetron Hcl (Zofran) 4 Mg Tab 4 MG PO Q8 PRN for Nausea, TAB Tamoxifen (Nolvadex) 20 Mg Tab 20 MG PO QPM, TAB Admission Information HPI (per Admitting provider): This is a 51 year old female with a PMH of R sided breast CA with mets to the axillary lymph node - completed course of chemo and radiation, HTN, hypothyroidism, episleritis; now off of steroids, hx. of multiple lumbar surgeries in 2011 and 2013 - presents with fevers/chills/weakness. She states that on , November 08 she fell while in the shower -- she states that it was a mechanical fall and she landed on her buttocks. Since the fall, her back pain has worsened. She states that today, she also felt weak, her heart started racing and she developed symptomatic fevers/chills. Presented to the ER; CXR and UA negative. Received morphine and Zofran - felt slightly better. Due to the low back pain, she has been having trouble ambulating - has been using a cane, but still having ambulatory issues. Physical Exam (per Admitting): General Appearance: + mild distress (secondary to pain), + obese Head: normocephalic, atraumatic Eyes: normal inspection ENT: hearing grossly normal Neck: supple Respiratory/Chest: chest non-tender, lungs clear, normal breath sounds, no respiratory distress, no accessory muscle use Cardiovascular: no edema, no murmur, + tachycardia Abdomen/GI: normal bowel sounds, non tender, soft Extremities/Musculoskelatal: normal capillary refill, no pedal edema Neurologic/Psych: no motor/sensory deficits, alert, normal mood/affect Skin: normal color Hospital Course 51 female with history of R sided breast CA, HTN, Hypothyroidism, presenting with back pain and fever. Low Back Pain - With hx. of lumbar surgeries in [address] Chavez - CT lumbar spine: no acute process - given Tramadol PRN, Lidoderm patch, Warm compress PT/OT - improved Acute Gastroenteritis - presented with fever, then developed diarrhea -CXR negative -UA negative -Dopplers shows no DVT -- C diff negative x 2 -- given Ciprofloxacin x 4 days, IV fluids resolved finish 3 more days of Ciprofloxacin PO Headache, likely Migraine Right sided, with photophobia given Ibuprofen, Tramadol persisted, thus, given Imitrex, migraine then resolved PRN Imitrex for Migraine headache Hypertension - continue HCTZ/Losartan Hypothyroidism - Continue Synthroid Right Breast CA: F/U f with oncology as outpatient q6 months for follow-up on Tamoxifen Disposition: d/c home ff up with PCP in 1 week Total time spent on discharge = This includes examination of the patient, discharge planning, medication reconciliation, and communication with other providers. Discharge Instructions Discharge Instructions Date of Service Nov 17, 2016. Admission Reason for Admission: Acute Bilateral Low Back Pain, Fever Discharge Discharge Diagnosis / Problem: Back Pain, Acute Gastroenteritis, Migraine Discharge Goals Goal(s): Diagnostic testing, Therapeutic intervention Activity Recommendations Activity Limitations: as noted below (increase activity gradually as tolerated) Lifting Limitations: until after follow-up appointment Exercise/Sports Limitations: until after follow-up appointment . Instructions / Follow-Up Instructions / Follow-Up PLEASE REVIEW YOUR NEW MEDICATION LIST AND FOLLOW INSTRUCTIONS CAREFULLY. CALL YOUR PRIMARY CARE PHYSICIAN OR RETURN TO ER IMMEDIATELY IF WITH RECURRENCE OF SYMPTOMS. ENSURE ADEQUATE DAILY FLUID INTAKE. FOLLOW UP WITH DR. ORNELAS IN 1 WEEK ( THE CLINIC WILL BE CALLING YOU FOR THE APPOINTMENT. PLEASE CALL THE CLINIC IF YOU HAVE NOT RECEIVED AN APPOINTMENT IN 2-3 DAYS. THANK YOU.) Current Hospital Diet Patient's current hospital diet: Low Fat Diet, Low Lactose Diet Discharge Diet Recommended Diet: Regular Diet Pending Studies Studies pending at discharge: no Medical Emergencies . Who to Call and When: Medical Emergencies: If at any time you feel your situation is an emergency, please call 911 immediately. . Non-Emergent Contact Non-Emergency issues call your: Primary Care Provider Call Non-Emergent contact if: you have a fever, your pain is not controlled, your pain is worsening, you have any medication questions . . "Provider Documentation" section prepared by Lavelle French. . VTE Core Measure Inpt VTE Proph given/why not?: Unfractionated heparin SQ [place] Drug Monitoring Program Search Results: patient reviewed within database, no issues identified
== END 2016-11-17 17:35 | disposition home or self-care (01) | DRG 392 ==
LOC: C.EDB 19:32 → C.MSW 23:46 → ENRESERV 23:55
PROVIDERS: ADMIT Family Medicine; ATTEND Internal Medicine
DX: K52.9 Noninfective gastroenteritis and colitis, unspecified (principal); M54.5 Low back pain; I10 Essential (primary) hypertension; E03.9 Hypothyroidism, unspecified; Z85.3 Personal history of malignant neoplasm of breast; G43.909 Migraine, unspecified, not intractable, without status migrainosus; Z83.3 Family history of diabetes mellitus; Z82.49 Family history of ischemic heart disease and other diseases of the circulatory system; W18.2XXA Fall in (into) shower or empty bathtub, initial encounter; Z85.72 Personal history of non-Hodgkin lymphomas

== ENCOUNTER 2023-12-10 07:58 | Inpatient (IN) ==
--- NOTE | 2023-11-27 10:53 | PAT Medication Instructions ---
Medication Instructions Date of Service November 27, 2023 Home Medications amlodipine 10 mg tablet 10 mg PO QAM baclofen 10 mg tablet 10 mg PO BID PRN calcium 600 mg capsule 600 mg PO DAILY carvedilol 6.25 mg tablet 6.25 mg PO BID cyanocobalamin (vitamin B-12) 500 mcg tablet 500 mcg PO DAILY duloxetine 20 mg capsule,delayed release sprinkle 20 mg PO QAM gabapentin 400 mg capsule 400 mg PO TID hydrochlorothiazide 25 mg tablet 25 mg PO QAM levothyroxine 50 mcg tablet 50 mcg PO QAM omeprazole 40 mg capsule,delayed release 40 mg PO QAM ondansetron 4 mg disintegrating tablet 4 mg PO Q8H PRN oxycodone-acetaminophen 5 mg-325 mg tablet 1 tab PO Q8H PRN tamoxifen 20 mg tablet 20 mg PO QPM ASK your prescriber and surgeon tamoxifen 20 mg tablet 20 mg PO QPM DO NOT take the morning of surgery calcium 600 mg capsule 600 mg PO DAILY cyanocobalamin (vitamin B-12) 500 mcg tablet 500 mcg PO DAILY hydrochlorothiazide 25 mg tablet 25 mg PO QAM Take morning of surgery With a small sip of water, OTHERWISE NOTHING TO EAT OR DRINK AFTER MIDNIGHT: amlodipine 10 mg tablet 10 mg PO QAM baclofen 10 mg tablet 10 mg PO BID PRN(if needed) ondansetron 4 mg disintegrating tablet 4 mg PO Q8H PRN(if needed) oxycodone-acetaminophen 5 mg-325 mg tablet 1 tab PO Q8H PRN(if needed) carvedilol 6.25 mg tablet 6.25 mg PO BID duloxetine 20 mg capsule,delayed release sprinkle 20 mg PO QAM gabapentin 400 mg capsule 400 mg PO TID levothyroxine 50 mcg tablet 50 mcg PO QAM omeprazole 40 mg capsule,delayed release 40 mg PO QAM Take evening before surgery baclofen 10 mg tablet 10 mg PO BID PRN(if needed) ondansetron 4 mg disintegrating tablet 4 mg PO Q8H PRN(if needed) oxycodone-acetaminophen 5 mg-325 mg tablet 1 tab PO Q8H PRN(if needed) carvedilol 6.25 mg tablet 6.25 mg PO BID gabapentin 400 mg capsule 400 mg PO TID Other Notes If you have any questions please call us at [phone] or [phone] or [phone] or [phone]
--- NOTE | 2023-11-29 09:58 | Anesthesiology Consultation ---
Date of Service November 29, 2023 Assessment & Plan (1) Encounter for pre-operative examination: - Infectious disease screening: Per assessment on 11/29/23: No known recent infectious disease contacts or current infectious disease symptoms. - Cardiology visit (06/28/23): "Mildly enlarged aorta.. atypical chest pain.. worse with deep breathing and MSK in nature.. Reduce stress/BP.. Blood pressure remains elevated.. Unfortunately patient has allergy to PRISCILA/ARB's.. Start carvedilol.. Continue amlodipine.. Continue HCTZ.. Aortic dilatation.. Stable.. Repeat TTE to reevaluate enlarged ascending aorta.. Followup 1 year" > Echo updated 08/21/23- Mildly enlarged proximal ascending thoracic aorta at 4.1cm.* - RUE limb restriction - Hypokalemia: Preop labs note potassium low at 3.1. Note written to PCP. Awaiting PCP response regarding hypokalemia + upcoming PCP visit (Sree Fenton/Dr. Luis Gandhi, appt 12/03/23). Chart Review Chart Review: Patient seen in Pre Admission Testing Teaching & Discussion Pre-Anesthesia Teaching/Discussion Notes: Instructed NPO after midnight before surgery,except medications with 15 cc of water. Medication instructions provided according to the PAT guidelines. History Surgery Operation Date: 12/10/23 07:45 Proposed Procedures p L3-L4 Decompression and Fusion, L4-S1 Hardware Removal, Spinal Cord Monitoring - Fish Chavez, Height/Weight Height: 5 ft 8 in Weight: 106 kg Allergies Allergy/AdvReac Type Severity Reaction Status Date / Time Fish Containing Products Allergy Severe Throat Verified 11/27/23 10:10 swelling, hives Sulfa (Sulfonamide Allergy Intermediate Hives Verified 11/27/23 10:10 Antibiotics) (Bactrim) sulfamethoxazole Allergy Intermediate Hives Verified 11/27/23 10:10 trimethoprim Allergy Intermediate Hives Verified 11/27/23 10:10 ketorolac AdvReac Mild Tachy Verified 11/27/23 10:10 Antiemetics AdvReac Tachycardia Uncoded 11/29/23 10:25 (tolerates Zofran) Medications Home Medications Medication Instructions Recorded Confirmed Last Taken amlodipine 10 mg tablet 10 mg PO QAM 11/26/23 11/26/23 Unknown baclofen 10 mg tablet 10 mg PO BID PRN Pain 11/26/23 11/26/23 Unknown calcium 600 mg capsule 600 mg PO DAILY 11/26/23 11/26/23 Unknown carvedilol 6.25 mg tablet 6.25 mg PO BID 11/26/23 11/26/23 Unknown cyanocobalamin (vitamin B-12) 500 500 mcg PO DAILY 11/26/23 11/26/23 Unknown mcg tablet duloxetine 20 mg capsule,delayed 20 mg PO QAM 11/26/23 11/26/23 Unknown release sprinkle gabapentin 400 mg capsule 400 mg PO TID 11/26/23 11/26/23 Unknown hydrochlorothiazide 25 mg tablet 25 mg PO QAM 11/26/23 11/26/23 Unknown levothyroxine 50 mcg tablet 50 mcg PO QAM 11/26/23 11/26/23 Unknown omeprazole 40 mg capsule,delayed 40 mg PO QAM 11/26/23 11/26/23 Unknown release ondansetron 4 mg disintegrating 4 mg PO Q8H PRN Nausea 11/26/23 11/26/23 Unknown tablet oxycodone-acetaminophen 5 mg-325 1 tab PO Q8H PRN Pain 11/26/23 11/26/23 Unknown mg tablet tamoxifen 20 mg tablet 20 mg PO QPM 11/26/23 11/26/23 Unknown Past Medical History Medical History Anxiety Arthritis Enlarged aorta Echo 08/2023: Mildly enlarged proximal ascending thoracic aorta (4.1cm) History of kidney stones Hx of breast cancer Right (surgery/chemo/radiation) RUE limb restriction Hypertension Hypothyroidism Prediabetes Diet controlled Exercise / Class Metabolic Activity II 4-5 Yardwork/Stairs/Walk up hill (one FS: no CP, no SOB) Past Family History Family History Other No family history of adverse response to anesthesia Past Surgical History Surgical History History of appendectomy History of cholecystectomy History of colonoscopy History of esophagogastroduodenoscopy (EGD) History of hysterectomy History of lumbar surgery x2 with hardware (last surgery 2013) History of lumpectomy of right breast History of tooth extraction Past Anesthesia History No Hx of Anesthesia Complications and No Family Hx of Anesthesia Complications History of PONV No Hx of Motion Sickness and History of PONV (Postop nausea (good response with Zofran)) Social History Smoking Status: Never smoker Do You Dip or Chew Tobacco: No Hx Alcohol Use: No Hx Substance Use: No substance use type: does not use Review of Systems Patient denies chest pain, shortness of breath, dyspnea on exertion, fever, chills, cough, wheezing, palpitations. Previous atypical chest pain noted in 06/2023 cardiology office visit has resolved. Physical Exam Vital Signs BP 119/84 P 71 TEMP 98.4 SP02 98%RA RESP 16 Physical Full cervical extension range of motion. Full TMJ range of motion. TMD > 3.5 finger breaths Mallampati Score I Dentition: intact, + implant post (LUE side) Lungs: clear throughout to auscultation Cardiac: regular rate and rhythm, no murmurs noted Spine: normal Carotid arteries: negative bruit Extremities: no LE edema Lab Results Anesthesia Preop Results Results Anesthesia Widget: WBC 6.05 K/ul (4.8-10.8) 11/29/23 Hgb 13.1 g/dl (12.0-16.0) 11/29/23 Hct 40.6 % (37.0-47.0) 11/29/23 Plt 253 K/uL (130-400) 11/29/23 Na 140 mmol/L (136-145) 11/29/23 K 3.1 mmol/L (3.5-5.1) L 11/29/23 Cl 101 mmol/L (98-107) 11/29/23 CO2 28 mmol/L (21-32) 11/29/23 BUN 20 mg/dl (6-23) 11/29/23 Creat 0.75 mg/dl (0.6-1.2) 11/29/23 Glucose Level 137 mg/dl (70-99(Fasting)) H 11/29/23 PT 10.4 Seconds (9.0-12.0) 11/29/23 PTT 23 Seconds (21-31) 11/29/23 INR 1.0 (0.9-1.1) 11/29/23 HA1c 6.1 % (4.5-5.6) H 11/29/23 Urine Color Yellow 11/29/23 Urine Appearance Clear (Clear) 11/29/23 Urine pH 5.5 (4.5-7.5) 11/29/23 Urine Specific [place] 1.023 (1.000-1.030) 11/29/23 Urine Protein Negative (Negative) 11/29/23 Urine Glucose (UA) Negative (Negative) 11/29/23 Urine Ketones Negative (Negative) 11/29/23 Urine Blood Negative (Negative) 11/29/23 Urine Nitrite Negative (Negative) 11/29/23 Urine Bilirubin Negative (Negative) 11/29/23 Urine Urobilinogen Negative (Negative) 11/29/23 Urine Leukocyte Esterase Negative (Negative) 11/29/23 Blood Type A Positive 11/29/23 Antibody Screen NEGATIVE 11/29/23 Testing Electrocardiogram Date: 11/29/23 NSR at 68bpm. "Normal ECG" Chest X-Ray Date: 11/29/23 FINDINGS: No lines and tubes are seen. Calcified aortic knob is seen. The lungs are clear. No evidence of pleural effusion or pneumothorax. IMPRESSION: No acute chest disease. Echocardiogram Date: 08/21/23 LVEF 55-59%. Mild MR/TR. Proximal ascending thoracic aorta is mildly enlarged (4.1cm). Stress Test Date: 05/25/20 Type: exercise The exercise stress test was negative for inducible ischemia at 95% MPHR. 5.0 METS. The low workload achieved reduces the sensitivity of this test for the detection of coronary artery disease or ischemia. Rest echo: LVEF 55-59%. Grade 1 diastolic dysfunction. No significant valvular disease noted. The aortic root and proximal ascending aorta are normal sized.
[2023-12-10] MEDS ORDERED: LIDOCAINE 2% 2 ML VIAL/AMP(20MG/ML) INFIL ONE (08:30)
[2023-12-10] MEDS ORDERED: ONDANSETRON INJ 2 MG/ML 2 ML VIAL ONE (08:30)
[2023-12-10] MEDS ORDERED: DEXAMETHASONE SOD INJ 4 MG/ML VIAL ONE (08:30)
[2023-12-10] MEDS ORDERED: fentaNYL citrate PF 100 MCG/2 ML VIAL ONE (08:30)
[2023-12-10] MEDS ORDERED: PROPOFOL IV EMULSION 10 MG/ML 20 ML VIAL IV ONE (08:30)
[2023-12-10] MEDS ORDERED: MIDAZOLAM HCL 1 MG/ML 2ML VIAL ONE (08:30)
[2023-12-10] MEDS: GABAPENTIN 300 MG CAP PO SCH (08:32)
[2023-12-10] MEDS: LR 60ML/HR IV SCH (08:32)
[2023-12-10] MEDS: CeleBREX 200 MG CAP PO SCH (08:32)
[2023-12-10] MEDS: LR 15ML/HR IV SCH (08:35)
[2023-12-10] MEDS ORDERED: ROCURONIUM BROMIDE 10 MG/ML 5 ML VIAL IV ONE ×2 (08:35→10:36)
[2023-12-10] MEDS ORDERED: LARYING-O-JET KIT (LTA) ONE (08:35)
--- OUTSIDE RECORDS SUMMARY | 2023-12-10 08:56 | External Medical Summary | Summary of Care ---
Author Name Unknown Organization [facility] Address [address] [place] [address] Phone [phone] Care Team Providers Care Carpentry Specialist Name Role Phone Ashlyn Gandhi DO Primary Care Provider [phone] Reason for Visit * Reason Onset Date Comments Medication Refill 12/03/2023 Encounter Details Date Type Department Care Team (Late st Contact Info) Description 12/03/2023 Refill Family Practice [facility] [address] [place] [address] Ashlyn Gandhi DO [address] [place] [address] Nausea without vomiting Allergies Active Allergy Reactions Criticality Noted Date Comments Bryan Inhibitors Cough 07/12/2016 Sulfa Antibiotics Hives 03/16/2005 Ketorolac Tromethamine 05/21/2005 Toradol - palpitations Lisinopril Edema face/lips/tongue High 03/14/2019 Losartan Edema face/lips/tongue High 03/14/2019 ANGIOEDEMA 03/2019 Shellfish-Derived Products 06/29/2019 documented as of this encounter (statuses as of 12/04/2023) Medications Medication Sig Dispensed Refills Start Date End Date Status [facility] Vitamin B-12 2000 MCG Oral Tablet (Cyanocobalamin) Take 1 Tablet by mouth in the morning. 30 Tab 01/30/2020 Active Calcium 500+D3 500-400 MG-UNIT Oral Tablet (Calcium Carb-Cholecalcifer ol) Take 1 Tab by mouth daily. Active Aspirin 81 MG Oral Tablet Chewable Take by mouth 1 Tablet in the morning. 34 Tablet 11 07/25/2021 Active Ibuprofen 200 MG Oral Tablet Take 1 Tablet by mouth every 4 hours as needed. Active Acetaminophen 500 MG Oral Tablet Take 1 Tablet by mouth every 6 hours as needed. Active Baclofen 10 MG Oral Tablet (Lioresal)Indicati ons:Cervical radicular pain,Osteoarthriti s of spine with radiculopathy, cervical region,Cervical myofascial pain syndrome Take 1 Tablet by mouth 2 times a day as needed for Pain or Muscle spasms. 30 Tablet 3 08/08/2022 Active Levothyroxine Sodium 50 MCG Oral Tablet (Levoxyl) TAKE ONE TABLET BY MOUTH ONCE DAILY at least 30 minutes prior to breakfast or other meds 90 Tablet 3 01/11/2023 Active Omeprazole 40 MG Oral Capsule Delayed Release (PriLOSEC)Indicati ons:Gastroesophage al reflux disease without esophagitis take 1 capsule by mouth 60 minutes before the first meal of the day 90 Capsule 3 01/11/2023 Active DULoxetine HCl 20 MG Oral Capsule Delayed Release Particles (duloxetine)Indica tions:GILDA (generalized anxiety disorder),Chronic bilateral low back pain, unspecified whether sciatica present Take 1 Capsule by mouth in the morning. Do not cut, crush or chew. 30 Capsule 5 07/23/2023 Active LORazepam 0.5 MG Oral Tablet (Ativan)Indication s:Stress disorder, acute Take 1 Tablet by mouth daily as needed for Anxiety. Take 30 minutes before imaging 20 Tablet 07/23/2023 Active Carvedilol 6.25 MG Oral Tablet (Coreg)Indications :Essential hypertension with goal blood pressure less than 130/80 Take 1 Tablet by mouth 2 times a day with morning and evening meals. 180 Tablet 3 07/25/2023 Active amLODIPine Besylate 10 MG Oral Tablet (Norvasc)Indicatio ns:Essential hypertension with goal blood pressure less than 130/80,Enlarged aorta (HCC),Essential hypertension with goal blood pressure less than 140/90 Take 1 Tablet by mouth in the morning. 90 Tablet 3 08/07/2023 Active hydroCHLOROthiazid e 25 MG Oral Tablet (Hydrodiuril)Indic ations:Essential hypertension with goal blood pressure less than 140/90 TAKE ONE TABLET BY MOUTH ONCE DAILY 90 Tablet 3 09/09/2023 Active Gabapentin 400 MG Oral Capsule (Neurontin) TAKE ONE CAPSULE BY MOUTH THREE TIMES DAILY 270 Capsule 11/04/2023 Active Naloxone HCl 4 MG/0.1ML Nasal Liquid (Narcan Nasal) Administer 1 spray into 1 nostril for suspected opioid overdose. Seek immediate medical attention. [email or web address] 1 Each 3 11/07/2023 Active TO GO ondansetron ODT 4 MG OR Orally Disintegrated Tablet Place 1 Tablet on tongue every 6 hours as needed for Nausea for up to 6 doses. 4 Each 11/07/2023 Active TO GO ondansetron ODT 4 MG OR Orally Disintegrated Tablet Place 1 Tablet on tongue every 6 hours as needed for Nausea for up to 6 doses. 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 20 Tablet 12/03/2023 Active Ondansetron HCl 4 MG Oral TabletIndications: Nausea without vomiting Take 1 Tablet by mouth every 8 hours as needed for Nausea. 30 Tablet 5 12/04/2023 Active Ondansetron HCl 4 MG Oral TabletIndications: Nausea without vomiting Take 1 Tablet by mouth every 8 hours as needed for Nausea. 30 Tablet 5 09/07/2022 Discontinue d(Refill) documented as of this encounter (statuses as of 12/04/2023) Active Problems Problem Noted Date Diagnosed Date Carcinoma of right breast metastatic to axillary lymph node 06/05/2022 Malignant neoplasm of right breast in female, estrogen receptor positive 06/05/2022 Prediabetes 06/13/2020 Overview: Per Prediabetes protocol Acquired hypothyroidism 11/26/2017 Malignant neoplasm of right breast 06/07/2015 Encounter for examination fo r normal comparison and control in clinical research program 05/31/2015 Overview: Diagnosis changed due to Research Module. Go to Snapshot for study details. 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 Breast cancer metastasized to axillary lymph nod e Cancer Staging:Pathologic: Unsigned Clinical stage from 03/18/2015:Stage IIA(T1c, N1, M0) - Signed by Philip Thacker MD on 03/18/2015 Overview: [id number], R breast stage IIA Use of tamoxifen (Nolvadex) documented as of this encounter (statuses as of 12/04/2023) Resolved Problems Problem Noted Date Diagnosed Date Resolved Date Body mass index (BMI) of 40. 0 to 44.9 in adult 01/15/2022 07/23/2023 Overview: Per Obesity protocol Ascending aorta dilatation 07/08/2020 0 10/27/2021 Encounter for examination fo r normal comparison and control in clinical research program 09/09/2018 10/03/2018 Overview: PERT (Performance of Epi proColon in Repeated Testing in the Intended Use Population) Epi proColon is an FDA approved blood test designed to detect Colon Cancer. The object of this study is to evaluate longitudinal performance of Epi proColon with respect to test positivity, longitudinal adherence to Epi proColon screening, adherence to follow-up colonoscopy and diagnostic yield, as well as assay failure rates. Contacts: PI: Dr. Violeta Parisi-[facility]- Susie Blanca ([phone]) [facility]- Daphney Cardona ([phone]) [facility]o [facility] ([phone]) Diagnosis changed due to Research Module. Go to Snapshot for study details. Chest wall pain following surgery 12/07/2015 11/22/2016 Other specified prophylactic or treatment measure 11/19/2014 09/29/2017 Encounter for antineoplastic chemotherapy 09/09/2014 09/29/2017 High-renin essential hypertension 08/26/2013 09/07/2013 Fluctuating blood pressure 08/26/2013 0 01/28/2017 NO KNOWN PROBLEMS 04/12/2005 07/19/2005 documented as of this encounter (statuses as of 12/04/2023) Immunizations Name Administration Dates Next Due COVID-19 mRNA, LNP-s, No Pre serve, 2-Dose Series (Moderna) 08/16/2020,07/19/2020 PPD 11/18/2011 Seasonal Influenza, PF, 6 M & above, IM , (FluLaval or Fluzone) 07/06/2022(Deferred: Patient Refused - patient did not want) TDAP (age 10 and older)(Boostrix) 05/05/2019,08/2013 documented as of this encounter Social History Tobacco Use Types Packs/Day Years Used Date Smoking Tobacco: Never Passive Smoke Exposure: Never Smokeless Tobacco: Never Alcohol Use Standard Drinks/Week Comments No 0 (1 standard drink = 0.6 oz pur e alcohol) PHQ-2 Answer Date Recorded PHQ Adult Total Score 0 07/08/2020 Hunger Vital Sign Answer Date Recorded Within the past 12 months, y ou worried that your food would run out before you got the money to buy more. Patient declined Within the past 12 months, t he food you bought just didn't last and you didn't have money to get more. Patient declined 03/2024 Childcare Answer Date Recorded Do you feel overwhelmed with taking care of a child, family member or friend? No 07/15/2023 Does your family need help f inding childcare? (Household - for ages 0-17 years) Not on file 07/15/2023 Clothing Answer Date Recorded Have you been unable to get clothing when it was really needed? No 07/15/2023 Is your family able to get c lothes or diapers when needed? (Household - for ages 0-17 years) Not on file 07/15/2023 Personal Safety Answer Date Recorded Do you feel unsafe or have concerns for your saf ety? No 07/15/2023 Do you have concerns for you r family's safety? (Household - for ages 0-17 years) Not on file 07/15/2023 Utilities Answer Date Recorded Do you have trouble paying y our heating, water, or electric bill? No 07/15/2023 Is your family able to pay t he heat, water, or electric bill? (Household - for ages 0-17 years) Not on file 07/15/2023 Does your family have access to good internet? (Household - for ages 0-17 years) Not on file 07/15/2023 Employment Status Answer Date Recorded Are you unemployed or without regular income? No 07/15/2023 Does the household have a re lar source of income? (Household - for ages 0-17 years) Not on file 07/15/2023 Social Connections Answer Date Recorded How often do you feel lonely or isolated from th ose around you? Never 07/15/2023 Financial Resource Strain Answer Date R ecorded Do you have any trouble payi ng for your medications, or do you think you might in the future? No 07/15/2023 Does your family have troubl e paying for medicine? (Household - for ages 0-17 years) Not on file 07/15/2023 Transportation Needs Answer Date Record ed READ ONLY Do you have troubl e getting a ride to medical visits or work? Never True 07/15/2023 Does your family have a hard time getting a ride to doctors visits? (Household - for ages 0-17 years) Not on file 07/15/2023 Has lack of transportation k ept you from medical appointments, meetings, work, or from getting things needed for daily living? Check all that apply. (Adult - for ages 18 years and over) Not on file 07/15/2023 Do you (or your family) have trouble finding or paying for a ride (transportation)? (Household - for ages 0-17 years) Not on file 07/15/2023 Housing Stability Answer Date Recorded Do you currently live in a s helter or have no steady place to sleep at night? No 07/15/2023 READ ONLY Do you think you a re at risk of becoming homeless? No 07/15/2023 Does your family worry about paying for your home or becoming homeless? (Household - for ages 0-17 years) Not on file 0 07/15/2023 Are you homeless or worried that you might be in the future? (Adult - for ages 18 years and over) Not on file Are you (or your family) sharon eless or worried that you might be in the future? (Household - for ages 0-17 years) Not on file Food Insecurity Answer Date Recorded Do you need food for this week? No 07/15/2023 Are you able to get enough f ood for your family? (Household - for ages 0-17 years) Not on file 07/15/2023 Does your family need food t his week? (Household - for ages 0-17 years) Not on file 07/15/2023 Do you always have enough fo od for your family? (Household - for ages 0-17 years) Not on file 07/15/2023 Sex and Gender Information Value Date Recorded Sex Assigned at Not on file Gender Identity Not on file Sexual Orientation Not on file Job Start Date Occupation Industry Not on file Not on file Not on file documented as of this encounter Miscellaneous Notes * Telephone Encounter - Jenny Jerome RPh - 12/04/2023 10:38 AM EDT Signed Prescriptions: Disp Refills Ondansetron HCl 4 MG Oral Tablet 30 Tab*5 Sig: Take 1 Tablet by mouth every 8 hours as needed for Nausea.Authorizing Provider: ASHLYN GANDHI User: JENNY JEROME documented in this encounter Plan of Treatment Upcoming Encounters Date Type Department Care Team (Late st Contact Info) Description 01/28/2024 10:00 AM EDT Office Visit Family Practice [facility] [place] [address] [place] [address] Ashlyn Gandhi, DO [address] [place] [address] 02/21/2024 2:30 PM EDT Office Visit Hematology/Oncology [facility] [place] [address] [place] [phone] [facility] [address] [facility] [place] [address] Scheduled Procedures Name Priority Associated Diagnoses Date/Ti me COLONOSCOPY FLEXIBLE PROXIMAL DIAGNOSTIC Recall History of colon polyps Health Maintenance Due Date Last Done Comments Pneumococcal Vaccine: Pediatrics (0 to 5 Years) and At-Risk Patients (6 to 64 Years) (1 of 2 - PCV) 1971 Hepatitis B Vaccine (1 of 3 - 19+ 3-dose series) 1984 Zoster Vaccines (1 of 2) 1984 Cologuard 2010 Fecal Occult Blood Test 2010 Sigmoidoscopy 2010 COVID-19 Vaccine (3 - Moderna risk series) 09/13/2020 08/16/2020, 07/19/2020 Depression Screening 07/08/2021 07/08/2020 *NEPHROLOGY REFERRAL DUE TO RESISTANT HTN 02/22/2023 Mammogram 10/27/2023 10/26/2022, 10/04, 10/17/2020, Additional history exists Influenza Vaccine (FLU shot) (#1) 2024 Colonoscopy 03/27/2024 03/27/2019, 03/07, 10/03/2018, Additional history exists Colorectal Cancer Screening 03/27/2024 Albumin/Creatinine Ratio 07/17/2024 07/17/2021 TSH 07/23/2024 07/24/2023, 11/05, 05/16/2022, Additional history exists HbA1c 11/28/2024 11/29/2023, 07/05, 12/03/2022, Additional history exists GFR 12/02/2024 12/03/2023, 11/04, 11/07/2023, Additional history exists Lipid Panel 07/23/2028 07/24/2023, 05/07, 05/21/2020, Additional history exists DTaP,Tdap,and Td Vaccines (3 - Td or Tdap) 05/05/2029 05/05/2019, 07/07/2013 RETIRED - COLONOSCOPY-EVERY 5 YRS AGES 18-100 Discontinued 03/27/2019, 03/27/2019, 10/03/2018, Additional history exists HIV Screening Completed 12/25/2019 Hepatitis C Screening Completed 12/25/2019 HPV (Gardasil) Vaccine Aged Out No lo nger eligible based on patient's age to complete this topic MENINGOCOCCAL (MENACTRA/MENVEO) Aged Out No longer eligible based on patient's age to complete this topic documented as of this encounter Medical Devices Implanted Type Area City Driver Device Identifier Shelf Expiration Date Model / Serial / Lot Powerport 8f Implanted:Qty: 1 on 09/08/2014 by Luz Maria Tripp MD at [facility] Left: Chest 12/04/2015 [id number] / / [id number] documented as of this encounter Visit Diagnoses Diagnosis Nausea without vomiting documented in this encounter Care Teams Carpentry Specialist Relationship Specialty Start Date End Date Ashlyn Gandhi DO [address] [place] [address] PCP - General Family Medicine 04/13/19 documented as of this encounter
--- OUTSIDE RECORDS SUMMARY | 2023-12-10 08:56 | External Medical Summary | Summary of Care ---
Author Name Unknown Organization [facility] Address [address] [place] [address] Phone [phone] Care Team Providers Care Inside Sales Consultant Name Role Phone Luis Gandhi DO Primary Care Provider [phone] Reason for Visit * Reason Comments Hospital Follow-Up Encounter Details Date Type Department Care Team (Late st Contact Info) Description 12/03/2023 2:00 PM EDT Office Visit Family Practice [facility] [address] [facility] [place] [address] Luis Gandhi DO [address] [facility] [place] [address] Pre-operative general physical examination*; Hypokalemia; Chronic bilateral low back pain, unspecified whether sciatica present Allergies Active Allergy Reactions Criticality Noted Date Comments Bryan Inhibitors Cough 07/12/2016 Sulfa Antibiotics Hives 03/16/2005 Ketorolac Tromethamine 05/21/2005 Toradol - palpitations Lisinopril Edema face/lips/tongue High 03/14/2019 Losartan Edema face/lips/tongue High 03/14/2019 ANGIOEDEMA 03/2019 Shellfish-Derived Products 06/29/2019 documented as of this encounter (statuses as of 12/03/2023) Medications Medication Sig Dispensed Refills Start Date End Date Status [facility] Vitamin B-12 2000 MCG Oral Tablet (Cyanocobalamin) Take 1 Tablet by mouth in the morning. 30 Tab 0 Active Calcium 500+D3 500-400 MG-UNIT Oral Tablet (Calcium Carb-Cholecalcife rol) Take 1 Tab by mouth daily. Active Aspirin 81 MG Oral Tablet Chewable Take by mouth 1 Tablet in the morning. 34 Tablet 11 2 Active Ibuprofen 200 MG Oral Tablet Take 1 Tablet by mouth every 4 hours as needed. Active Acetaminophen 500 MG Oral Tablet Take 1 Tablet by mouth every 6 hours as needed. Active Baclofen 10 MG Oral Tablet (Lioresal)Indicat ions:Cervical radicular pain,Osteoarthrit is of spine with radiculopathy, cervical region,Cervical myofascial pain syndrome Take 1 Tablet by mouth 2 times a day as needed for Pain or Muscle spasms. 30 Tablet 3 3 Active Ondansetron HCl 4 MG Oral TabletIndications :Nausea without vomiting Take 1 Tablet by mouth every 8 hours as needed for Nausea. 30 Tablet 5 3 Active Levothyroxine Sodium 50 MCG Oral Tablet (Levoxyl) TAKE ONE TABLET BY MOUTH ONCE DAILY at least 30 minutes prior to breakfast or other meds 90 Tablet 3 3 Active Omeprazole 40 MG Oral Capsule Delayed Release (PriLOSEC)Indicat ions:Gastroesopha geal reflux disease without esophagitis take 1 capsule by mouth 60 minutes before the first meal of the day 90 Capsule 3 3 Active DULoxetine HCl 20 MG Oral Capsule Delayed Release Particles (duloxetine)Indic ations:GILDA (generalized anxiety disorder),Chronic bilateral low back pain, unspecified whether sciatica present Take 1 Capsule by mouth in the morning. Do not cut, crush or chew. 30 Capsule 5 4 Active LORazepam 0.5 MG Oral Tablet (Ativan)Indicatio ns:Stress disorder, acute Take 1 Tablet by mouth daily as needed for Anxiety. Take 30 minutes before imaging 20 Tablet 4 Active Carvedilol 6.25 MG Oral Tablet (Coreg)Indication s:Essential hypertension with goal blood pressure less than 130/80 Take 1 Tablet by mouth 2 times a day with morning and evening meals. 180 Tablet 3 4 Active amLODIPine Besylate 10 MG Oral Tablet (Norvasc)Indicati ons:Essential hypertension with goal blood pressure less than 130/80,Enlarged aorta (HCC),Essential hypertension with goal blood pressure less than 140/90 Take 1 Tablet by mouth in the morning. 90 Tablet 3 4 Active hydroCHLOROthiazi de 25 MG Oral Tablet (Hydrodiuril)Opal cations:Essential hypertension with goal blood pressure less than 140/90 TAKE ONE TABLET BY MOUTH ONCE DAILY 90 Tablet 3 4 Active Gabapentin 400 MG Oral Capsule (Neurontin) TAKE ONE CAPSULE BY MOUTH THREE TIMES DAILY 270 Capsule 4 Active Naloxone HCl 4 MG/0.1ML Nasal Liquid (Narcan Nasal) Administer 1 spray into 1 nostril for suspected opioid overdose. Seek immediate medical attention. [email or web address] 1 Each 3 4 Active TO GO ondansetron ODT 4 MG OR Orally Disintegrated Tablet Place 1 Tablet on tongue every 6 hours as needed for Nausea for up to 6 doses. 4 Each 4 Active TO GO ondansetron ODT 4 MG OR Orally Disintegrated Tablet Place 1 Tablet on tongue every 6 hours as needed for Nausea for up to 6 doses. 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 20 Tablet 4 Active ProAir HFA 108 (90 Base) MCG/ACT Inhalation Aerosol Solution Inhale by mouth 2 Puffs 4 times a day . 18 g 1 2 12/03/19 24 Discontinued(Med ication List Clean Up) Beclomethasone Diprop HFA 80 MCG/ACT Inhalation Aerosol Breath Activated (Qvar RediHaler)Indicat ions:Acute bronchospasm Inhale 2 Puffs by mouth in the morning and 2 Puffs before bedtime. 10.6 g 1 3 12/03/19 24 Discontinued Azithromycin 250 MG Oral Tablet (Zithromax Z-Dion)Indications :Acute sinusitis, recurrence not specified, unspecified location Take two tablets by mouth on first day, then 1 tablet daily until gone 6 Tablet 4 12/03/19 24 Discontinued(Med ication List Clean Up) guaiFENesin-Codei ne 100-10 MG/5ML Oral Syrup (Robitussin AC)Indications:Ac michele bronchitis, complicated Take 5 mL by mouth every 4 hours as needed for Cough. initial 120 mL 4 12/03/19 24 Discontinued(Med ication List Clean Up) predniSONE 20 MG Oral Tablet (Deltasone) 2 pills daily for 5 days then 1 pill daily next 5 days 15 Tablet 4 12/03/19 24 Discontinued(Med ication List Clean Up) TO GO oxycodone-acetami nophen OR Take 1 Tablet by mouth every 4 hours as needed for Pain, Moderate. 6 Tablet 4 12/03/19 24 Discontinued TO GO oxycodone-acetami nophen OR Take 1 Tablet by mouth every 4 hours as needed for Pain, Moderate. 6 Tablet 4 12/03/19 24 Discontinued oxyCODONE-Acetami nophen 5-325 MG Oral Tablet (Percocet)Indicat ions:Chronic bilateral low back pain, unspecified whether sciatica present Take 1 Tablet by mouth every 8 hours as needed for Pain, Moderate or Pain, Severe. 20 Tablet 4 12/03/19 24 Discontinued documented as of this encounter (statuses as of 12/03/2023) Active Problems Problem Noted Date Diagnosed Date [...] defect, found on 11/28/2011 CT done at [facility] Endometriosis 07/19/2005 ADVANCE DIRECTIVE INFORMATION 04/17/2005 Overview: No, Advance Directive brochure given to patient. Breast cancer metastasized to axillary lymph nod e Cancer Staging:Pathologic: Unsigned Clinical stage from 03/18/2015:Stage IIA(T1c, N1, M0) - Signed by Philip Thacker MD on 03/18/2015 Overview: [id number], R breast stage IIA Use of tamoxifen (Nolvadex) documented as of this encounter (statuses as of 12/03/2023) Resolved Problems Problem Noted Date Diagnosed Date [...] assay failure rates. Contacts: PI: Dr. Violeta Ann [facility]- Susie Blanca ([phone]) [facility]- Daphney Cardona ([phone]) [facility]- Pao Barbosa ([phone]) Diagnosis changed due to Research Module. Go to Snapshot for study details. Chest wall pain following surgery 12/07/2015 11/22/2016 Other specified prophylactic or treatment measure 11/19/2014 09/29/2017 Encounter for antineoplastic chemotherapy 09/09/2014 09/29/2017 High-renin essential hypertension 08/26/2013 09/07/2013 Fluctuating blood pressure 08/26/2013 0 01/28/2017 NO KNOWN PROBLEMS 04/12/2005 07/19/2005 documented as of this encounter (statuses as of 12/03/2023) Immunizations Name Administration Dates Next Due COVID-19 [...] 07/15/2023 Does the household have a re gular source of income? (Household - for ages [...] on file documented as of this encounter Last Filed Vital Signs Vital Sign Reading Time Taken Comments Blood Pressure 126/76 12/03/2023 2:08 PM EDT Pulse 81 12/03/2023 2:08 PM EDT Temperature 36.9 C (98.5 F) 12/03/2023 2:08 PM ED T Respiratory Rate - - Oxygen Saturation 97% 12/03/2023 2:08 PM EDT Inhaled Oxygen Concentration - - Weight 107.3 kg (236 lb 9.6 oz) 12/03/2023 2:08 PM EDT Height - - Body Mass Index 35.97 11/07/2023 3:36 PM EDT documented in this encounter Progress Notes * Luis Gandhi, - 12/03/2023 2:17 PM EDT Subjective: Christina Herrera is a 58 year old female. Chief Complaint Patient presents with Hospital Follow-Up HPI: Pt here for pre-op for L3-L4 decompression and fusion with hardware removal from L4 to S1 on 12/10/[address] Chavez. This will be done under general anesthesia. She had blood work done showing normal CBC and INR. Her potassium was low at 3.1. Her A1C was 6.1. Her urine was clear. EKG done and NSR with no signs of ischemia. HEr brother passed recently. Lots of stress. 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 No fall or injury for her back. Just could not even get out of bed. MRI done showing a problem. Gotin with ortho quickly.HEr hardware has snapped. We discussed her low potassium. She is not drinking as much. Concerned about dehydration. She was very sick. She spent a whole week throwing up. She is not throwing up anymore. No CP or SOB or palpations. No unusual bleeding. No trouble swallowing food. No F or C. 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 30 Tab 0 Calcium 500+D3 500-400 MG-UNIT Oral Tablet (Calcium Carb-Cholecalciferol) Take 1 Tab by mouth daily. Aspirin 81 MG Oral Tablet Chewable Take by mouth 1 Tablet in the morning. 34 Tablet 11 Ibuprofen 200 MG Oral Tablet Take 1 Tablet by mouth every 4 hours as needed. Acetaminophen 500 MG Oral Tablet Take 1 Tablet by mouth every 6 hours as needed. Baclofen 10 MG Oral Tablet (Lioresal) Take 1 Tablet by mouth 2 times a day as needed for Pain or Muscle spasms. 30 Tablet 3 Ondansetron HCl 4 MG Oral Tablet Take 1 Tablet by mouth every 8 hours as needed for Nausea. 30 Tablet 5 Levothyroxine Sodium 50 MCG Oral Tablet (Levoxyl) TAKE ONE TABLET BY MOUTH ONCE DAILY at least 30 minutes prior to breakfast or other meds 90 Tablet 3 Omeprazole 40 MG Oral Capsule Delayed Release (PriLOSEC) take 1 capsule by mouth 60 minutes before the first meal of the day 90 Capsule 3 DULoxetine HCl 20 MG Oral Capsule Delayed Release Particles (duloxetine) Take 1 Capsule by mouth inthe morning. Do not cut, crush or chew. 30 Capsule 5 LORazepam 0.5 MG Oral Tablet (Ativan) Take 1 Tablet by mouth daily as needed for Anxiety. Take 30 minutes before imaging 20 Tablet 0 Carvedilol 6.25 MG Oral Tablet (Coreg) Take 1 Tablet by mouth 2 times a day with morning and evening meals. 180 Tablet 3 amLODIPine Besylate 10 MG Oral Tablet (Norvasc) Take 1 Tablet by mouth in the morning. 90 Tablet 3 hydroCHLOROthiazide 25 MG Oral Tablet (Hydrodiuril) TAKE ONE TABLET BY MOUTH ONCE DAILY 90 Tablet 3 Gabapentin 400 MG Oral Capsule (Neurontin) TAKE ONE CAPSULE BY MOUTH THREE TIMES DAILY 270 Capsule 0 Naloxone HCl 4 MG/0.1ML Nasal Liquid (Narcan Nasal) Administer 1 spray into 1 nostril for suspectedopioid overdose. Seek immediate medical attention. [email or web address] 1 Each 3 TO GO oxycodone-acetaminophen OR Take 1 Tablet by mouth every 4 hours as needed for Pain, Moderate.6 Tablet 0 TO GO ondansetron ODT 4 MG OR Orally Disintegrated Tablet Place 1 Tablet on tongue every 6 hours asneeded for Nausea for up to 6 doses. 4 Each 0 TO GO oxycodone-acetaminophen OR Take 1 Tablet by mouth every 4 hours as needed for Pain, Moderate.6 Tablet 0 TO GO ondansetron ODT 4 MG OR Orally Disintegrated Tablet Place 1 Tablet on tongue every 6 hours asneeded for Nausea for up to 6 doses. 2 Each 0 oxyCODONE-Acetaminophen 5-325 MG Oral Tablet (Percocet) Take 1 Tablet by mouth every 8 hours as needed for Pain, Moderate or Pain, Severe. 20 Tablet 0 Tamoxifen Citrate 20 MG Oral Tablet TAKE ONE TABLET BY MOUTH ONCE DAILY 90 Tablet 3 No current facility-administered medications for this visit. Review of patient's allergies indicates: Allergen Reactions Lisinopril Edema face/lips/tongue Losartan Edema face/lips/tongue ANGIOEDEMA 03/2019 Bryan Inhibitors Cough Bactrim [Sulfa Antibiotics] Hives Ketorolac Tromethamine Toradol - palpitations Shellfish-Derived Products OBJECTIVE: BP 126/76 | Pulse 81 | Temp 36.9 C (98.5 F) | Wt 107.3 kg (236 lb 9.6 oz) | LMP 05/17/2006 (Approximate) | SpO2 97% | BMI 35.97 kg/m | BSA 2.27 m Estimated body mass index is 35.97 kg/m as calculated from the following: Height as of 11/07/23: 1.727 m (5' 8"). Weight as of this encounter: 107.3 kg (236 lb 9.6 oz). BP Readings from Last 3 Encounters: 12/03/23 126/76 11/07/23 133/85 11/07/23 127/87 Wt Readings from Last 3 Encounters: 12/03/23 107.3 kg (236 lb 9.6 oz) 11/07/23 106.7 kg (235 lb 4.8 oz) 11/07/23 106.7 kg (235 lb 4.8 oz) ROS: General: No change in weight, No weakness, No fatigue and No fevers, sweats, or chills Head: No significant headache and No recent significant head injury Eyes: No recent significant change in vision, No eye pain, redness, discharge, or excessive tearing, No diplopia and No h/o cataracts or glaucoma Ears: No recent change in hearing, No tinnitus or vertigo, No ear pain and No ear discharge Nose: No h/o frequent colds or sinusitis, No nasal stuffiness, No h/o hay fever and No significant epistaxis Throat/Oropharynx: No teeth or gum problems, No bleeding gums, No tongue complaints, No sore throatand No recent change in voice or hoarseness Neck: No complaint of lumps in neck, No swollen glands, No recent swelling in thyroid area and No significant pain in neck Respiratory: No cough, sputum, or hemoptysis, No wheezing, No shortness of breath and No recent change in breathing Cardiac: No chest pain, No shortness of breath, No dyspnea on exertion, No orthopnea, No paroxysmalnocturnal dyspnea, No edema, No palpitations and No syncope Gastrointestinal: No dysphagia, No significant heartburn, No significant change in appetite, No nausea, vomiting, diarrhea, or constipation, No hematemesis, No blood in stools or black tarry stools, No abdominal bloating or early satiety and No abdominal pain Urinary: No urinary frequency, No dysuria, No hematuria, No urinary urgency, No polyuria, No nocturia, No incontinence, No hesitancy and No sensation of incomplete voiding Musculoskeletal: back pain as above Hematologic: No anemia, No easy bruising or abnormal bleeding and No history of transfusion Neurologic: No fainting or blackouts, No seizures, No paralysis or focal weakness, No numbness or tingling, No tremors and No significant problems with memory PHYSICAL EXAM: General: alert, healthy and no distress Head: Normocephalic, No masses, lesions, tenderness or abnormalities Ears: External ears normal, Canals clear, TM's Normal Nose: no mucosal erythema, no mucosal edema, no purulent discharge Oropharynx: no exudate, no erythema, lips, buccal mucosa, and tongue normal and mucous membranes are moist Heart: regular rate & rhythm, no murmurs and no gallops Lungs: chest symmetric with normal AP diameter, no chest deformities noted, no chest wall tenderness, lungs clear to auscultation Abdomen: abdomen soft, non-tender, normal bowel sounds and no masses or organomegaly Extremities: less than 2 second capillary refill, no joint deformities, effusion, or inflammation ASSESSMENT/Plan Pre-operative general physical examination (Primary) Hypokalemia - BASIC METABOLIC PANEL; Future; Expected date: 12/03/2023 Chronic bilateral low back pain, unspecified whether sciatica present - oxyCODONE-Acetaminophen 5-325 MG Oral Tablet (Percocet); Take 1 Tablet by mouth every 8 hours as needed for Pain, Moderate or Pain, Severe. Pt optimized for surgery with low likelihood of zena-operative complications. The above was discussed and understanding was expressed. Luis Gandhi DO documented in this encounter Nursing Notes * Aixa Castillo CMA - 12/03/2023 2:00 PM EDT Christina Herrera presents for ED follow up. Was seen 11/07/23 due to severe low back pain which worsened, causing L leg weakness and numbness. Upon d/c she began projectile vomiting. She reports previous surgery on L4-L5 in 2015. Presently- as far as back problems, [facility]OC recommended surgery which is beingcompleted on 12/09. N/v have gotten better. Medications & HM reviewed. documented in this encounter Plan of Treatment Upcoming Encounters Date Type Department Care Team (Late st Contact Info) Description 01/28/2024 10:00 AM EDT Office Visit Family Practice [facility] [address] [facility] [address] [place] [address] Luis Gandhi DO [address] [facility] [place] [address] 02/21/2024 2:30 PM EDT Office Visit Hematology/Oncology [facility] [place] [address] [facility] [place] [phone] Imani Elise CRNP [address] [facility] [place] [address] Pending Results Name Type Priority Associated Diagnoses Date /Time BASIC METABOLIC PANEL Lab Routine Hypokalemia 12/03/2023 2:37 PM EDT Scheduled Orders Name Type Priority Associated Diagnoses Orde r Schedule BASIC METABOLIC PANEL Lab Routine Hypokalemia Expected: 12/03/2023 (Approximate), Expires: 12/02/2024 Scheduled Procedures Name Priority Associated Diagnoses Date/Ti [...] 07/23/2024 07/24/2023, 11/05, 05/16/2022, Additional history exists GFR 11/28/2024 11/29/2023, 07/0 08/2023, 07/24/2023, Additional history exists HbA1c 11/28/2024 11/29/2023, 07/05, 12/03/2022, Additional history exists Lipid Panel 07/23/2028 07/24/2023, [...] this encounter Medical Devices Implanted Type Area Range Operator Device Identifier Shelf Expiration Date Model / Serial / Lot Powerport 8f Implanted:Qty: 1 on 09/08/2014 by Luz Maria Tripp MD at OR [facility] Left: Chest 12/04/2015 [id number] / / [id number] documented as of this encounter Visit Diagnoses Diagnosis Pre-operative general physical examination- Primary Other specified pre-operative examination Hypokalemia Hypopotassemia Chronic bilateral low back pain, unspecified whether sciatica present documented in this encounter Care Teams Inside Sales Consultant Relationship Specialty Start Date End Date Luis Gandhi DO [address] [place] [address] PCP - General Family Medicine 04/13/19 documented as of this encounter
--- OUTSIDE RECORDS SUMMARY | 2023-12-10 08:56 | External Medical Summary | Summary of Care ---
Author Name Unknown Organization [facility] Address [address] [place] [address] Phone [phone] Care Team Providers Care Law Firm Administrator Name Role Phone CrowLuis tyler [place] ROOT Primary Care Provider [phone] Reason for Visit * Reason Comments Outpatient Testing Encounter Details Date Type Department Care Team (Late st Contact Info) Description 12/03/2023 2:40 PM EDT Laboratory Laboratory [facility] [place] [address] [place] [id number] [facility] [address] [place] [address] Hypokalemia Allergies Active Allergy Reactions Criticality Noted Date [...] Calcium 500+D3 500-400 MG-UNIT Oral Tablet (Calcium Carb-Cholecalciferol ) Take 1 Tab by mouth daily. Active Aspirin 81 MG Oral Tablet Chewable Take by mouth 1 Tablet in the morning. 34 Tablet 11 07/25/2021 Active Ibuprofen 200 MG Oral Tablet Take 1 Tablet by mouth every 4 hours as needed. Active Acetaminophen 500 MG Oral Tablet Take 1 Tablet by mouth every 6 hours as needed. Active Baclofen 10 MG Oral Tablet (Lioresal)Indication s:Cervical radicular pain,Osteoarthritis of spine with radiculopathy, cervical region,Cervical myofascial pain syndrome Take 1 Tablet by mouth 2 times a day as needed for Pain or Muscle spasms. 30 Tablet 3 08/08/2022 Active Ondansetron HCl 4 MG Oral TabletIndications:Na usea without vomiting Take 1 Tablet by mouth every 8 hours as needed for Nausea. 30 Tablet 5 09/07/2022 Active Levothyroxine Sodium 50 MCG Oral Tablet (Levoxyl) TAKE ONE TABLET BY MOUTH ONCE DAILY at least 30 minutes prior to breakfast or other meds 90 Tablet 3 01/11/2023 Active Omeprazole 40 MG Oral Capsule Delayed Release (PriLOSEC)Indication s:Gastroesophageal reflux disease without esophagitis take 1 capsule by mouth 60 minutes before the first meal of the day 90 Capsule 3 01/11/2023 Active DULoxetine HCl 20 MG Oral Capsule Delayed Release Particles (duloxetine)Indicati ons:GILDA (generalized anxiety disorder),Chronic bilateral low back pain, unspecified whether sciatica present Take 1 Capsule by mouth in the morning. Do not cut, crush or chew. 30 Capsule 5 07/23/2023 Active LORazepam 0.5 MG Oral Tablet (Ativan)Indications: Stress disorder, acute Take 1 Tablet by mouth daily as needed for Anxiety. Take 30 minutes before imaging 20 Tablet 07/23/2023 Active Carvedilol 6.25 MG Oral Tablet (Coreg)Indications:E ssential hypertension with goal blood pressure less than 130/80 Take 1 Tablet by mouth 2 times a day with morning and evening meals. 180 Tablet 3 07/25/2023 Active amLODIPine Besylate 10 MG Oral Tablet (Norvasc)Indications :Essential hypertension with goal blood pressure less than 130/80,Enlarged aorta (HCC),Essential hypertension with goal blood pressure less than 140/90 Take 1 Tablet by mouth in the morning. 90 Tablet 3 08/07/2023 Active hydroCHLOROthiazide 25 MG Oral Tablet (Hydrodiuril)Indicat ions:Essential hypertension with goal blood pressure less than 140/90 TAKE ONE TABLET BY MOUTH ONCE DAILY 90 Tablet 3 09/09/2023 Active Gabapentin 400 MG Oral Capsule (Neurontin) TAKE ONE CAPSULE BY MOUTH THREE TIMES DAILY 270 Capsule 11/04/2023 Active Naloxone HCl 4 MG/0.1ML Nasal Liquid (Narcan Nasal) Administer 1 spray into 1 nostril for suspected opioid overdose. Seek immediate medical attention. 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 20 Tablet 12/03/2023 Active documented as of this encounter (statuses as [...] found on 11/28/2011 CT done at [facility] Endometriosis 07/19/2005 ADVANCE DIRECTIVE INFORMATION 04/17/2005 Overview: No, Advance Directive brochure given to patient. Breast cancer metastasized to axillary lymph nod e Cancer Staging:Pathologic: Unsigned Clinical stage from 03/18/2015:Stage IIA(T1c, N1, M0) - Signed by Philip Thacker MD on 03/18/2015 Overview: [id number], R breast stage IIA Use of tamoxifen [...] Dr. Violeta Parisi-Raúl Ann CRC- Susie Blanca ([phone]) [facility]- Daphney Cardona ([phone]) H[facility] Joyces CRC- Pao Barbosa ([phone]) Diagnosis changed due to Research Module. Go [...] on file documented as of this encounter Plan of Treatment Upcoming Encounters Date Type Department Care Team (Late st Contact Info) Description 01/28/2024 10:00 AM EDT Office Visit Family Practice [facility] [address] [facility] [place] [address] Luis Gandhi, [address] [facility] [place] [address] 02/21/2024 2:30 PM EDT Office Visit Hematology/Oncology [facility] [place] [address] [place] [phone] Imani Elise CRNP [address] [place] [address] [place] [address] Pending Results Name Type Priority Associated Diagnoses Date /Time BASIC METABOLIC PANEL Lab Routine Hypokalemia 12/03/2023 2:37 PM EDT Scheduled Procedures Name Priority Associated Diagnoses Date/Ti [...] Albumin/Creatinine Ratio 07/17/2024 07/17/2021 TSH 07/23/2024 07/24/2023, 07/3 05/2022, 05/16/2022, Additional history exists GFR 11/28/2024 11/29/2023, [...] this encounter Medical Devices Implanted Type Area Retail And Restaurant Associate Device Identifier Shelf Expiration Date Model / Serial / Lot Powerport [id number] Implanted:Qty: 1 on 09/08/2014 by Luz Maria Tripp MD at OR [facility] Left: Chest 12/04/2015 [id number] / / [id number] documented as of this encounter Visit Diagnoses Diagnosis Hypokalemia Hypopotassemia documented in this encounter Care Teams Law Firm Administrator Relationship Specialty Start Date End Date Luis Gandhi DO [address] [place] [address] PCP - General Family Medicine 04/13/19 documented as of this encounter
--- OUTSIDE RECORDS SUMMARY | 2023-12-10 08:57 | External Medical Summary | Summary of Care ---
Author Name Unknown Organization [facility] Address [address] [place] [address] Phone [phone] Care Team Providers Care Youth Probation Officer Name Role Phone CrowLuis tyler Primary Care Provider [phone] Reason for Visit * Reason Comments eRx-Medication Refill Encounter Details Date Type Department Care Team (Late st Contact Info) Description 11/30/2023 Refill Hematology/Oncology [facility] [address] [facility] [place] [address] Jorge Michael MD 200 [facility] [place] [address] Malignant neoplasm of right breast in female, estrogen receptor positive, unspecified site of breast (HCC); Carcinoma of right breast 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 34 Tablet 11 2 Active ProAir HFA 108 (90 Base) MCG/ACT Inhalation Aerosol Solution Inhale by mouth 2 Puffs 4 times a day . 18 g 1 2 Active Ibuprofen 200 MG Oral Tablet Take 1 Tablet by mouth every 4 hours as needed. Active Acetaminophen 500 MG Oral Tablet Take 1 Tablet by mouth every 6 hours as needed. Active Beclomethasone Diprop HFA 80 MCG/ACT Inhalation Aerosol Breath Activated (Qvar RediHaler)Indicati ons:Acute bronchospasm Inhale 2 Puffs by mouth in the morning and 2 Puffs before bedtime. 10.6 g 1 3 Active Additional Information Patient taking differently:2 Puff Inhalation BID (.AM/PM),Patient takes as needed, Reported on 11/01/2022 Baclofen 10 MG Oral Tablet (Lioresal)Indicati ons:Cervical radicular pain,Osteoarthriti s of spine with radiculopathy, cervical region,Cervical myofascial pain syndrome Take 1 Tablet by mouth 2 times a day as needed for Pain or Muscle spasms. 30 Tablet 3 3 Active Ondansetron HCl 4 MG Oral TabletIndications: [...] 4 Active LORazepam 0.5 MG Oral Tablet (Ativan)Indication s:Stress disorder, acute Take 1 Tablet by mouth daily as needed for Anxiety. Take 30 minutes before imaging 20 Tablet 4 Active Carvedilol 6.25 MG Oral Tablet (Coreg)Indications [...] the morning. 90 Tablet 3 4 Active hydroCHLOROthiazid e 25 MG Oral Tablet (Hydrodiuril)Indic ations:Essential hypertension with goal blood pressure less than 140/90 TAKE ONE TABLET BY MOUTH ONCE DAILY 90 Tablet 3 4 Active Azithromycin 250 MG Oral Tablet (Zithromax Z-Dion)Indications: Acute sinusitis, recurrence not specified, unspecified location Take two tablets by mouth on first day, then 1 tablet daily until gone 6 Tablet 4 Active guaiFENesin-Codein e 100-10 MG/5ML Oral Syrup (Robitussin AC)Indications:Acu te bronchitis, complicated Take 5 mL by mouth every 4 hours as needed for Cough. initial 120 mL 4 Active Gabapentin 400 MG Oral Capsule (Neurontin) TAKE ONE CAPSULE BY MOUTH THREE TIMES DAILY 270 Capsule 4 Active predniSONE 20 MG Oral Tablet (Deltasone) 2 pills daily for 5 days then 1 pill daily next 5 days 15 Tablet 4 Active Naloxone HCl 4 MG/0.1ML Nasal Liquid (Narcan Nasal) Administer 1 spray into 1 nostril for suspected opioid overdose. Seek immediate medical attention. [email or web address]://[email or web address] 1 Each 3 4 Active TO GO oxycodone-acetamin ophen OR Take 1 Tablet by mouth every 4 hours as needed for Pain, Moderate. 6 Tablet 4 Active TO GO ondansetron ODT 4 MG OR Orally Disintegrated Tablet Place 1 Tablet on tongue every 6 hours as needed for Nausea for up to 6 doses. 4 Each 4 Active TO GO oxycodone-acetamin ophen OR Take 1 Tablet by mouth every 4 hours as needed for Pain, Moderate. 6 Tablet 4 Active TO GO ondansetron ODT 4 MG OR Orally Disintegrated Tablet Place 1 Tablet on tongue every 6 hours as needed for Nausea for up to 6 doses. 2 Each 4 Active oxyCODONE-Acetamin ophen 5-325 MG Oral Tablet (Percocet)Indicati ons:Chronic bilateral low back pain, unspecified whether sciatica present Take 1 Tablet by mouth every 8 hours as needed for Pain, Moderate or Pain, Severe. 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 Endometriosis 07/19/2005 ADVANCE DIRECTIVE INFORMATION 04/17/2005 Overview: No, Advance Directive brochure given to patient. Breast cancer metastasized to axillary lymph nod e Cancer Staging:Pathologic: Unsigned Clinical stage from 03/18/2015:Stage IIA(T1c, N1, M0) - Signed by Philip Thacker MD on 03/18/2015 Overview: [id number], R breast stage IIA Use of tamoxifen [...] PI: Dr. Violeta Ann [facility]- Susie Blanca ([phone]) [facility]- Daphney Cardona ([phone]) [facility]- Pao Barbosa ([phone]) Diagnosis changed due to Research Module. Go [...] encounter Miscellaneous Notes * Telephone Encounter - Lidya Patel LPN - 12/03/2023 8:20 AM EDTSigned Prescriptions: Disp Refills Tamoxifen Citrate 20 MG Oral Tablet 90 Tab*3 Sig: TAKE ONE TABLET BY MOUTH ONCE DAILYAuthorizing Provider: JORGE MICHAEL * Telephone Encounter - Jorge Michael MD - 12/02/2023 9:01 AM EDT E-prescribed Jorge Michael MD Hem/Onc * Telephone Encounter - Lidya Patel LPN - 12/02/2023 8:31 AM EDTPending Prescriptions: Disp Refills Tamoxifen Citrate 20 MG Oral Tablet 90 Tab*3 Sig: TAKE ONE TABLET BY MOUTH ONCE DAILY * Telephone Encounter - Lidya Patel LPN - 12/02/2023 8:29 AM EDT Refill request for Tamoxifen 20 mg tabs pended below: Last Refill: 12/12/2022 Last seen: 02/20/2023 Per andrea: She will continue tamoxifen once a day. I am planning for tamoxifen for total 10 year duration. Next Appt.:02/21/2024 * Telephone Encounter - Interface, E-Rx Ss Inbound - 12/02/2023 6:04 AM EDT Pending Prescriptions: Disp Refills Tamoxifen Citrate 20 MG Oral Tablet [Pharm* 0 Sig: TAKE ONE TABLET BY MOUTH ONCE DAILY documented in this encounter Plan of Treatment Upcoming Encounters Date Type Department Care Team (Late st Contact Info) Description 12/03/2023 2:00 PM EDT Office Visit [facility] [address] [place], [place] [address] Luis Gandhi, DO [address] [facility] [place] [address] 01/28/2024 10:00 AM EDT Office Visit [facility] [address] [place], [place] [address] Luis Gandhi, DO [address] [place] [address] 02/21/2024 2:30 PM EDT Office Visit Hematology/Oncology [facility] [address] [facility] [place] [address] Imani Elise CRNP [address] [place] [address] [place] [address] Scheduled Procedures Name Priority Associated Diagnoses [...] Albumin/Creatinine Ratio 07/17/2024 07/17/2021 TSH 07/23/2024 07/24/2023, 07/05/2022, 05/16/2022, Additional history exists GFR 11/28/2024 11/29/2023, [...] this encounter Medical Devices Implanted Type Area Seed Production Field Supervisor Device Identifier Shelf Expiration Date Model / Serial / Lot Powerport 8f Implanted:Qty: 1 on 09/08/2014 by Luz Maria Tripp MD at OR [facility] Left: Chest 12/04/2015 [id number] / / [id number] documented as of this encounter Visit Diagnoses Diagnosis Malignant neoplasm of right breast in female, estrogen receptor positive, unspecified site of breast (HCC) Carcinoma of right breast 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
--- OUTSIDE RECORDS SUMMARY | 2023-12-10 08:57 | External Medical Summary | Summary of Care ---
Author Name Unknown Organization [facility] Address [address] [place] [address] Phone [phone] Care Team Providers Care Mold Dumper Name Role Phone LaurenLuis grigsby [place] ROOT Primary Care Provider [phone] Encounter Details Date Type Department Care Team (Late st Contact Info) Description 11/29/2023 Result Scan Unspecified Department <No scans attached> Allergies Active Allergy Reactions Criticality Noted Date [...] Calcium 500+D3 500-400 MG-UNIT Oral Tablet (Calcium Carb-Cholecalcifero l) Take 1 Tab by mouth daily. Active Aspirin 81 MG Oral Tablet Chewable Take by mouth 1 Tablet in the morning. 34 Tablet 11 07/25/2021 Active ProAir HFA 108 (90 Base) MCG/ACT Inhalation Aerosol Solution Inhale by mouth 2 Puffs 4 times a day . 18 g 1 03/08/2022 Active Ibuprofen 200 MG Oral Tablet Take 1 Tablet by mouth every 4 hours as needed. Active Acetaminophen 500 MG Oral Tablet Take 1 Tablet by mouth every 6 hours as needed. Active Beclomethasone Diprop HFA 80 MCG/ACT Inhalation Aerosol Breath Activated (Qvar RediHaler)Indicatio ns:Acute bronchospasm Inhale 2 Puffs by mouth in the morning and 2 Puffs before bedtime. 10.6 g 1 07/25/2022 Active Additional Information Patient taking differently:2 Puff Inhalation BID (.AM/PM),Patient takes as needed, Reported on 11/01/2022 Baclofen 10 MG Oral Tablet (Lioresal)Indicatio ns:Cervical radicular pain,Osteoarthritis of spine with radiculopathy, cervical region,Cervical myofascial pain syndrome Take 1 Tablet by mouth 2 times a day as needed for Pain or Muscle spasms. 30 Tablet 3 08/08/2022 Active Ondansetron HCl 4 MG Oral TabletIndications:N ausea without vomiting Take 1 Tablet by mouth every 8 hours as needed for Nausea. 30 Tablet 5 09/07/2022 Active Levothyroxine Sodium 50 MCG Oral Tablet (Levoxyl) TAKE ONE TABLET BY MOUTH ONCE DAILY at least 30 minutes prior to breakfast or other meds 90 Tablet 3 01/11/2023 Active Omeprazole 40 MG Oral Capsule Delayed Release (PriLOSEC)Indicatio ns:Gastroesophageal reflux disease without esophagitis take 1 capsule by mouth 60 minutes before the first meal of the day 90 Capsule 3 01/11/2023 Active DULoxetine HCl 20 MG Oral Capsule Delayed Release Particles (duloxetine)Indicat ions:GILDA (generalized anxiety disorder),Chronic bilateral low back pain, unspecified whether sciatica present Take 1 Capsule by mouth in the morning. Do not cut, crush or chew. 30 Capsule 5 07/23/2023 Active LORazepam 0.5 MG Oral Tablet (Ativan)Indications :Stress disorder, acute Take 1 Tablet by mouth daily as needed for Anxiety. Take 30 minutes before imaging 20 Tablet 07/23/2023 Active Carvedilol 6.25 MG Oral Tablet (Coreg)Indications: Essential hypertension with goal blood pressure less than 130/80 Take 1 Tablet by mouth 2 times a day with morning and evening meals. 180 Tablet 3 07/25/2023 Active amLODIPine Besylate 10 MG Oral Tablet (Norvasc)Indication s:Essential hypertension with goal blood pressure less than 130/80,Enlarged aorta (HCC),Essential hypertension with goal blood pressure less than 140/90 Take 1 Tablet by mouth in the morning. 90 Tablet 3 08/07/2023 Active hydroCHLOROthiazide 25 MG Oral Tablet (Hydrodiuril)Indica tions:Essential hypertension with goal blood pressure less than 140/90 TAKE ONE TABLET BY MOUTH ONCE DAILY 90 Tablet 3 09/09/2023 Active Azithromycin 250 MG Oral Tablet (Zithromax Z-Dion)Indications:A cute sinusitis, recurrence not specified, unspecified location Take two tablets by mouth on first day, then 1 tablet daily until gone 6 Tablet 10/24/2023 Active guaiFENesin-Codeine 100-10 MG/5ML Oral Syrup (Robitussin AC)Indications:Acut e bronchitis, complicated Take 5 mL by mouth every 4 hours as needed for Cough. initial 120 mL 10/24/2023 Active Gabapentin 400 MG Oral Capsule (Neurontin) TAKE ONE CAPSULE BY MOUTH THREE TIMES DAILY 270 Capsule 11/04/2023 Active predniSONE 20 MG Oral Tablet (Deltasone) 2 pills daily for 5 days then 1 pill daily next 5 days 15 Tablet 11/07/2023 Active Naloxone HCl 4 MG/0.1ML Nasal Liquid (Narcan Nasal) Administer 1 spray into 1 nostril for suspected opioid overdose. Seek immediate medical attention. [email or web address]://[email or web address] 1 Each 3 11/07/2023 Active TO GO oxycodone-acetamino phen OR Take 1 Tablet by mouth every 4 hours as needed for Pain, Moderate. 6 Tablet 11/07/2023 Active TO GO ondansetron ODT 4 MG OR Orally Disintegrated Tablet Place 1 Tablet on tongue every 6 hours as needed for Nausea for up to 6 doses. 4 Each 11/07/2023 Active TO GO oxycodone-acetamino phen OR Take 1 Tablet by mouth every 4 hours as needed for Pain, Moderate. 6 Tablet 11/07/2023 Active TO GO ondansetron ODT 4 MG OR Orally Disintegrated Tablet Place 1 Tablet on tongue every 6 hours as needed for Nausea for up to 6 doses. 2 Each 11/07/2023 Active oxyCODONE-Acetamino phen 5-325 MG Oral Tablet (Percocet)Indicatio ns:Chronic bilateral low back pain, unspecified whether sciatica present Take 1 Tablet by mouth every 8 hours as needed for Pain, Moderate or Pain, Severe. 20 Tablet 11/28/2023 Active documented as of this encounter (statuses [...] defect, found on 11/28/2011 CT done at [facility] Endometriosis 07/19/2005 ADVANCE DIRECTIVE INFORMATION 04/17/2005 Overview: No, Advance Directive brochure given to patient. Breast cancer metastasized to axillary lymph nod e Cancer Staging:Pathologic: Unsigned Clinical stage from 03/18/2015:Stage IIA(T1c, N1, M0) - Signed by Philip Thacker MD on 03/18/2015 Overview: [id number], R breast stage IIA Use of tamoxifen [...] Dr. Violeta Parisi-Raúl Ann [facility]- Susie Blanca ([phone]) [facility] CRC- Daphney Cardona ([phone]) [facility] CRC- Pao Barbosa ([phone]) Diagnosis changed due to Research Module. Go [...] 2:00 PM EDT Office Visit [facility] [address] [place] [address] Luis Gandhi, DO [address] [place] [address] 01/28/2024 10:00 AM EDT Office Visit Family Practice [facility] [address] [facility] [place] [address] Luis Gandhi DO [address] [facility] [place] [address] 02/21/2024 2:30 PM EDT Office Visit Hematology/Oncology [facility] [place] [address] [facility] [place] [address] Imani Elise CRNP [address] [facility] [place] [address] Scheduled Procedures Name Priority Associated Diagnoses [...] Cancer Screening 03/27/2024 Albumin/Creatinine Ratio 07/17/2024 07/17/2021 HbA1c 07/23/2024 11/29/2023, 07/05, 12/03/2022, Additional history exists TSH 07/23/2024 07/24/2023, 11/05, 05/16/2022, Additional history exists GFR 11/06/2024 11/29/2023, 08/2023, 07/24/2023, Additional history exists Lipid Panel 07/23/2028 07/24/2023, [...] this encounter Medical Devices Implanted Type Area Hardness Inspector Device Identifier Shelf Expiration Date Model / Serial / Lot Powerport 8f Implanted:Qty: 1 on 09/08/2014 by Luz Maria Tripp MD at OR [facility] Left: Chest 12/04/2015 [id number] / / [id number] documented as of this encounter Procedures Procedure Name Priority Date/Time Associated Diagnosis Comments EKG SCANNED RESULT 11/29/2023 documented in this encounter Results * EKG SCANNED RESULT (11/29/2023) 11/29/2023 No Physician Data Unknown EKG documented in this encounter Care Teams Mold Dumper Relationship Specialty Start Date End Date Luis Gandhi DO [address] [place], [place] [address] PCP - General Family Medicine 04/13/19 documented as of this encounter
--- OUTSIDE RECORDS SUMMARY | 2023-12-10 08:57 | External Medical Summary ---
Author Name Unknown Address Unknown Organization K09[facility] [place] [address] Laboratory Report Ordering Provider Test Date Status ROSE GOLDBERG 12/03/2023 14:37:07 Final Observation Date Value Abnormality Reference (Units ) Status BUN 12/03/2023 14:37:07 16 6-20 (mg/dL) Final Creatinine 12/03/2023 14:37:07 0.8 0.5-1.0 (mg/dL) Final Glomerular filtration rate/1.73 sq M.predicted [Volume Rate/Area] in Serum, Plasma or Blood by Creatinine-based formula (CKD-EPI) 12/03/2023 14:37:07 >90 >=60 (mL/min) Final eGFR is calculated based on the CKD-EPI 2020 equation. Sodium 12/03/2023 14:37:07 142 135-146 (m mol/L) Final Potassium 12/03/2023 14:37:07 3.6 3.5-5.1 (m mol/L) Final Cl 12/03/2023 14:37:07 102 98-107 (mm ol/L) Final CO2 12/03/2023 14:37:07 23 22-32 (mmo l/L) Final Anion gap 12/03/2023 14:37:07 17 Above high normal 7- 15 (mmol/L) Final Glucose 12/03/2023 14:37:07 115 70-120 (mg /dL) Final Calcium 12/03/2023 14:37:07 9.6 8.4-10.2 ( mg/dL) Final Performing Location [facility] [place] [address]
--- OUTSIDE RECORDS SUMMARY | 2023-12-10 08:57 | External Medical Summary | Summary of Care ---
Author Name Unknown Organization [facility] Address [address] [place] [address] Phone [phone] Care Team Providers Care Applications Tester Name Role Phone CrowLuis tyler Primary Care Provider [phone] Reason for Visit * Reason Comments eRx-Medication Refill Encounter Details Date Type Department Care Team (Late st Contact Info) Description 11/30/2023 Refill Hematology/Oncology [facility] 200 [facility] [place] [address] Jorge Michael MD 200 [facility] [place] [address] Malignant neoplasm of right breast in female, [...] suspected opioid overdose. Seek immediate medical attention. [email or web address] 1 Each 3 4 Active TO GO [...] defect, found on 11/28/2011 CT done at [facility] Endometriosis 07/19/2005 ADVANCE DIRECTIVE INFORMATION 04/17/2005 Overview: No, Advance Directive brochure given to patient. Breast cancer metastasized to axillary lymph nod e Cancer Staging:Pathologic: Unsigned Clinical stage from 03/18/2015:Stage IIA(T1c, N1, M0) - Signed by Philip Thacker MD on 03/18/2015 Overview: [id number], R breast stage IIA Use of tamoxifen [...] PI: Dr. Violeta Ann CRC- Susie Blanca ([phone]) [facility]- Daphney Cardona ([phone]) [facility] CRC- Pao Barbosa ([phone]) Diagnosis changed due to Research Module. Go [...] Encounter - Lidya Patel LPN - 12/03/2023 8:22 AM EDT My G sent. * Telephone Encounter - Lidya Patel LPN [...] Description 12/03/2023 2:00 PM EDT [facility] [place] [address] [place] [address] Luis Gandhi, DO [address] [facility] [place] [place] [address] 01/28/2024 10:00 AM EDT [facility] [place] [address] [place] [address] Luis Gandhi, DO 200 [facility] [place] [address] 02/21/2024 2:30 PM EDT Office Visit Hematology/Oncology [employer] 200 [facility] [place] [phone] Imani Elise CRNP 400 [facility] [place] [address] Scheduled Procedures Name Priority Associated Diagnoses Date/Ti [...] this encounter Medical Devices Implanted Type Area Production Supervisor Trainee Device Identifier Shelf Expiration Date Model / Serial / Lot Powerport 8f Implanted:Qty: 1 on 09/08/2014 by Luz Maria Tripp MD at OR [facility] Left: Chest 12/04/2015 [id number] / / [id number] documented as of this encounter Visit Diagnoses Diagnosis Malignant neoplasm of right breast in female, estrogen receptor positive, unspecified site of breast (HCC) 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
--- OUTSIDE RECORDS SUMMARY | 2023-12-10 08:57 | External Medical Summary | Summary of Care ---
Author Name Unknown Organization [facility] Address [address] [place] [address] Phone [phone] Care Team Providers Care Tube Trailer Filler Name Role Phone Luis Gandhi DO Primary Care Provider [phone] Encounter Details Date Type Department Care Team (Late st Contact Info) Description 12/03/2023 Orders Only Family Practice [facility] 200 [facility] [place] [address] Luis Gandhi DO 200 [place] [address] Allergies Active Allergy Reactions Criticality Noted Date [...] suspected opioid overdose. Seek immediate medical attention. [email or web address] 1 Each 3 11/07/2023 Active TO GO [...] or Pain, Severe. 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 Breast cancer metastasized to axillary lymph nod e Cancer Staging:Pathologic: Unsigned Clinical stage from 03/18/2015:Stage IIA(T1c, N1, M0) - Signed by Philip Thacker MD on 03/18/2015 Overview: [id number], R breast stage IIA Use of tamoxifen [...] Dr. Violeta Parisi-Raúl Ann CRC- Susie Blanca ([phone]) [facility] CRC- Daphney Cardona ([phone]) [facility] CRC- Pao Barbosa ([phone]) Diagnosis changed due to Research Module. Go [...] Description 12/03/2023 2:00 PM EDT Office Visit [facility] [address] [facility] [place] [address] Luis Gandhi, DO [address] [facility] [place] [address] 01/28/2024 10:00 AM EDT Office Visit [facility] [address] [facility] [place] [address] Luis Gandhi, DO 200 [facility] [place] [address] 02/21/2024 2:30 PM EDT Office Visit Hematology/Oncology [facility] [address] [facility] [place] [phone] Imani Elise CRNP [address] [facility] [place] [address] Scheduled Procedures Name Priority Associated Diagnoses Date/Ti [...] 12/03/2022, Additional history exists TSH 07/23/2024 07/24/2023, 07/3 05/2022, 05/16/2022, Additional history exists GFR 11/06/2024 11/29/2023, 07/0 08/2023, 07/24/2023, Additional history exists Lipid Panel [...] this encounter Medical Devices Implanted Type Area Metallurgical Technician Device Identifier Shelf Expiration Date Model / Serial / Lot Powerport 8f Implanted:Qty: 1 on 09/08/2014 by Luz Maria Tripp MD at OR [facility] Left: Chest 12/04/2015 [id number] / / [id number] documented as of this encounter Procedures Procedure Name Priority Date/Time Associated Diagnosis Comments XR CHEST 2 VIEWS Routine 11/29/2023 documented in this encounter Results * XR CHEST 2 VIEWS (11/29/2023) Anatomical Region Laterality Modality Chest Other 11/29/2023 Fish Chavez DO RADIOLOGY ( RAD GENERAL) documented in this encounter Care Teams Tube Trailer Filler Relationship Specialty Start Date End Date Luis Gandhi DO [address] [place] [address] PCP - General Family Medicine 04/13/19 documented as of this encounter
--- OUTSIDE RECORDS SUMMARY | 2023-12-10 08:58 | External Medical Summary | Summary of Care ---
Author Name Unknown Organization [facility] Address [address] [place] [address] Phone [phone] Care Team Providers Care Trust Evaluation Supervisor Name Role Phone Luis Gandhi DO Primary Care Provider [phone] Encounter Details Date Type Department Care Team (Late st Contact Info) Description 12/03/2023 Orders Only Family Practice [facility] 200 [facility] [place] [address] Luis Gandhi DO 200 [place] [address] Allergies Active Allergy Reactions Criticality Noted Date [...] suspected opioid overdose. Seek immediate medical attention. [email or web address] 1 Each 3 11/07/2023 Active TO GO [...] defect, found on 11/28/2011 CT done at [facility] Endometriosis 07/19/2005 ADVANCE DIRECTIVE INFORMATION 04/17/2005 Overview: No, Advance Directive brochure given to patient. Breast cancer metastasized to axillary lymph nod e Cancer Staging:Pathologic: Unsigned Clinical stage from 03/18/2015:Stage IIA(T1c, N1, M0) - Signed by Philip Thacker MD on 03/18/2015 Overview: [id number], R breast stage IIA Use of tamoxifen [...] Dr. Violeta Parisi-Raúl Ann [facility]- Susie Blanca ([phone]) [facility] CRC- Daphney Cardona ([phone]) [facility] CRC- Pao Barbosa ([phone]) Diagnosis changed due to Research Module. Go [...] Description 12/03/2023 2:00 PM EDT Office Visit [facility] 200 [facility] [place] [address] Luis Gandhi, DO 200 [facility] [place] [address] 01/28/2024 10:00 AM EDT Office Visit [facility] [address] [facility] [place] [address] uLis Gandhi, DO 200 [facility] [place] [address] 02/21/2024 2:30 PM EDT Office Visit Hematology/Oncology [facility] [address] [facility] [place] [phone] Imani Elise CRNP [address] [place] [address] Scheduled Procedures Name Priority Associated Diagnoses Date/Ti [...] this encounter Medical Devices Implanted Type Area Yarn Winder Device Identifier Shelf Expiration Date Model / Serial / Lot Powerport 8f Implanted:Qty: 1 on 09/08/2014 by Luz Maria Tripp MD at OR [facility] Left: Chest 12/04/2015 [id number] / / [id number] documented as of this encounter Procedures Procedure Name Priority Date/Time Associated Diagnosis Comments CHEMISTRY-OUTSIDE Routine 11/29/2023 documented in this encounter Results * (ABNORMAL) CHEMISTRY-OUTSIDE (11/29/2023) Not all results display below - see scan for full detail OUTSIDE LAB (SEE SCANNED REPORT) Comment:SEE SCAN - CBCD,PTIN R,BMP,HA1C, UA CREATININE-OUTSID E LAB 0.75 0.6 - 1.2 MG/DL OUTSIDE LAB (SEE SCANNED REPORT) EGFR-OUTSIDE LAB 87.9 ML/MIN OUT SIDE LAB (SEE SCANNED REPORT) POTASSIUM-OUTSIDE LAB 3.1(A) 3.5 - 5.1 MMOL/L OUTSIDE LAB (SEE SCANNED REPORT) GLUCOSE-OUTSIDE LAB 137(A) 70 - 99 MG/DL OUTSIDE LAB (SEE SCANNED REPORT) HOURS FASTING OUTSID E LAB (SEE SCANNED REPORT) TRIGLYCERIDES-OUT SIDE LAB OUTSIDE LAB (SEE SCANNED REPORT) CHOLESTEROL-OUTSI DE LAB OUTSIDE LAB (SEE SCANNED REPORT) HDL-OUTSIDE LAB OUTS [facility] (SEE SCANNED REPORT) CHOL/HDL RATIO-OUTSIDE LAB OUTSIDE LA B (SEE SCANNED REPORT) LDL (CALCULATED)-OUTS [facility] OUTSIDE LAB (SEE SCANNED REPORT) LDL (DIRECT MEASURE)-OUTSIDE LAB OUTSIDE LAB (SEE SCANNED REPORT) HEMOGLOBIN, D1P-FTXRKPM LAB 6.1(A) 4.5 - 5.6 % OUTSIDE LAB (SEE SCANNED REPORT) PHOSPHORUS-OUTSID E LAB OUTSIDE LAB (SEE SCANNED REPORT) PTH-OUTSIDE LAB OUTS [facility] (SEE SCANNED REPORT) MICROALBUMIN RATIO-OUTSIDE LAB OUTSIDE LA B (SEE SCANNED REPORT) PROTEIN, UA-OUTSIDE LAB OUTSIDE LAB (SEE SCANNED REPORT) HGB 13.1 12.0 - 16.0 G/DL OUTSIDE LAB (SEE SCANNED REPORT) 11/29/2023 Fish Chavez DO LABORATORY OUTSIDE LAB (SEE SCANNED REPORT) documented in this encounter Care Teams Trust Evaluation Supervisor Relationship Specialty Start Date End Date Luis Gandhi DO [address] [place] [address] PCP - General Family Medicine 04/13/19 documented as of this encounter
--- OUTSIDE RECORDS SUMMARY | 2023-12-10 08:58 | External Medical Summary | Summary of Care ---
Author Name Unknown Organization [facility] Address [address] [place] [address] Phone [phone] Care Team Providers Care Manager Net Name Role Phone CrowLuis tyler Primary Care Provider [phone] Reason for Visit * Reason Comments eRx-Medication Refill Encounter Details Date Type Department Care Team (Late st Contact Info) Description 11/30/2023 Refill Hematology/Oncology [facility] [place] 200 [facility] [place] [address] Logan Michael MD 200 [facility] [place] [address] Malignant neoplasm of right breast in female, [...] as of this encounter (statuses as of 12/02/2023) Medications Medication Sig Dispensed Refills Start Date [...] suspected opioid overdose. Seek immediate medical attention. [email or web address] 1 Each 3 4 Active TO GO [...] as of this encounter (statuses as of 12/02/2023) Active Problems Problem Noted Date Diagnosed Date [...] defect, found on 11/28/2011 CT done at [facility] Endometriosis 07/19/2005 ADVANCE DIRECTIVE INFORMATION 04/17/2005 Overview: No, Advance Directive brochure given to patient. Breast cancer metastasized to axillary lymph nod e Cancer Staging:Pathologic: Unsigned Clinical stage from 03/18/2015:Stage IIA(T1c, N1, M0) - Signed by Philip Thacker MD on 03/18/2015 Overview: [id number], R breast stage IIA Use of tamoxifen (Nolvadex) documented as of this encounter (statuses as of 12/02/2023) Resolved Problems Problem Noted Date Diagnosed Date [...] PI: Dr. Violeta Ann CRC- Susie Blanca ([phone]) [facility]- Daphney Cardona ([phone]) [facility] CRC- Pao Barbosa ([phone]) Diagnosis changed due to Research Module. Go to Snapshot for study details. Chest wall pain following surgery 12/07/2015 11/22/2016 Other specified prophylactic or treatment measure 11/19/2014 09/29/2017 Encounter for antineoplastic chemotherapy 09/09/2014 09/29/2017 High-renin essential hypertension 08/26/2013 09/07/2013 Fluctuating blood pressure 08/26/2013 0 01/28/2017 NO KNOWN PROBLEMS 04/12/2005 07/19/2005 documented as of this encounter (statuses as of 12/02/2023) Immunizations Name Administration Dates Next Due COVID-19 [...] encounter Miscellaneous Notes * Telephone Encounter - Logan Michael MD - 12/02/2023 9:01 AM EDT E-prescribed Logan Michael MD Hem/Onc * Telephone Encounter - [...] Description 12/03/2023 2:00 PM EDT Office Visit [facility] [place] [address] [place] [address] Luis Gandhi, DO [address] [facility] [facility] [address] 01/28/2024 10:00 AM EDT Office Visit [facility] [place] [address] [place] [address] Luis Gandhi, DO [address] [place] [address] 02/21/2024 2:30 PM EDT Office Visit Hematology/Oncology [facility] [place] [address] [place] [phone] Imani Elise CRNP 400 [place] [address] Scheduled Procedures Name Priority Associated Diagnoses Date/Ti [...] 03/27/2024 Albumin/Creatinine Ratio 07/17/2024 07/17/2021 HbA1c 07/23/2024 07/24/2023, 073 05/2022, 05/16/2022, Additional history exists TSH 07/23/2024 07/24/2023, 07/3 05/2022, 05/16/2022, Additional history exists GFR 11/06/2024 11/07/2023, 07/05, 05/16/2022, Additional history exists Lipid Panel 07/23/2028 07/24/2023, 05/07, 05/21/2020, Additional history exists DTaP,Tdap,and Td Vaccines (3 - Td or Tdap) 05/05/2029 05/05/2019, 07/07/2013 RETIRED - COLONOSCOPY-EVERY 5 YRS AGES 18-100 Discontinued 03/27/2019, 03/27/2019, 10/03/2018, Additional history exists HPV (Gardasil) Vaccine Aged Out No lo nger eligible based on patient's age to complete this topic MENINGOCOCCAL (MENACTRA/MENVEO) Aged Out No longer eligible based on patient's age to complete this topic documented as of this encounter Medical Devices Implanted Type Area Dinner Cook Device Identifier Shelf Expiration Date Model / Serial / Lot Powerport 8f Implanted:Qty: 1 on 09/08/2014 by Luz Maria Tripp MD at [facility] Left: Chest 12/04/2015 [id number] / / [id number] documented as of this encounter Visit Diagnoses Diagnosis Malignant neoplasm of right breast in female, estrogen receptor positive, unspecified site of breast (HCC) 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
[2023-12-10] MEDS ORDERED: ATROPINE SULFATE 0.1 MG/ML 10ML SYR IV PRN ×2 (09:16→09:17)
[2023-12-10] MEDS ORDERED: ePHEDrine sulfate 50 MG/ML AMP IV PRN ×2 (09:16→09:17)
--- NOTE | 2023-12-10 09:16 | History & Physical Bridge Note ---
Date of Service December 10, 2023 History & Physical Bridge Note I have examined the patient, reviewed the History & Physical and in the interval since the performance of the History & Physical I have noted the following changes of clinical significance: no changes noted
[2023-12-10] MEDS ORDERED: HYDROmorphone INJ 2 MG/ML SYR/VIAL IV PRN (09:17)
[2023-12-10] MEDS ORDERED: DROPERIDOL 5 MG/2 ML VIAL IV PRN (09:17)
--- NOTE | 2023-12-10 09:17 | History & Physical Report ---
Date of Service December 10, 2023 Assessment & Plan (1) Lumbar stenosis with neurogenic claudication: Plan: L3-L4 decompression and fusion L4-S1 hardware removal History of Present Illness Chief Complaint: Back and leg pain Primary Care Provider: Tom Martinez MD This is a 58-year-old female who presents with chronic persistent back and leg pain after failing course of nonoperative care she is here for surgical invention. Allergies Allergy/AdvReac Type Severity Reaction Status Date / Time Fish Containing Products Allergy Severe Throat Verified 12/10/23 08:55 swelling, hives Sulfa (Sulfonamide Allergy Intermediate Hives Verified 12/10/23 08:55 Antibiotics) (Bactrim) sulfamethoxazole Allergy Intermediate Hives Verified 12/10/23 08:55 trimethoprim Allergy Intermediate Hives Verified 12/10/23 08:55 ketorolac AdvReac Mild Tachy Verified 12/10/23 08:55 Antiemetics AdvReac Mild Tachycardia Uncoded 12/10/23 08:55 (tolerates Zofran) Home Medications Medication Instructions Recorded Confirmed Type amlodipine 10 mg tablet 10 mg PO QAM 11/26/23 12/10/23 History baclofen 10 mg tablet 10 mg PO BID PRN Pain 11/26/23 12/10/23 History calcium 600 mg capsule 600 mg PO BID 11/26/23 12/10/23 History carvedilol 6.25 mg tablet 6.25 mg PO BID 11/26/23 12/10/23 History cyanocobalamin (vitamin B-12) 500 500 mcg PO DAILY 11/26/23 12/10/23 History mcg tablet duloxetine 20 mg capsule,delayed 20 mg PO QAM 11/26/23 12/10/23 History release sprinkle (Drizalma Sprinkle) gabapentin 400 mg capsule 400 mg PO TID 11/26/23 12/10/23 History hydrochlorothiazide 25 mg tablet 25 mg PO QAM 11/26/23 12/10/23 History levothyroxine 50 mcg tablet 50 mcg PO QAM 11/26/23 12/10/23 History omeprazole 40 mg capsule,delayed 40 mg PO QAM 11/26/23 12/10/23 History release ondansetron 4 mg disintegrating 4 mg PO Q8H PRN Nausea 11/26/23 12/10/23 History tablet oxycodone-acetaminophen 5 mg-325 1 tab PO Q8H PRN Pain 11/26/23 12/10/23 History mg tablet (Percocet) tamoxifen 20 mg tablet 20 mg PO QPM 11/26/23 12/10/23 History Past Med/Surg History Problem List Encounter for pre-operative examination Lumbar stenosis with neurogenic claudication (Acute 04/28/14) Medical History Anxiety Arthritis Enlarged aorta Echo 08/2023: Mildly enlarged proximal ascending thoracic aorta (4.1cm) History of kidney stones Hx of breast cancer Right (surgery/chemo/radiation) RUE limb restriction Hypertension Hypothyroidism Prediabetes Diet controlled Surgical History History of appendectomy History of cholecystectomy History of colonoscopy History of esophagogastroduodenoscopy (EGD) History of hysterectomy History of lumbar surgery x2 with hardware (last surgery 2013) History of lumpectomy of right breast History of tooth extraction Family History Other No family history of adverse response to anesthesia Social History Smoking Status: Never smoker Second Hand Exposure: No; Do You Dip or Chew Tobacco: No; Hx Alcohol Use: No Hx Substance Use: No Preferred Language: Croatian Medical Engineer Required: No Beliefs That Will Affect Care: None Current Living Situation: Spouse Feels Safe at Home: Yes Safety Concerns: Feels Safe At This Time Assistive Devices: Cane and Glasses Physical Exam Physical Exam: Patient is alert and oriented Heart regular rhythm lungs clear Results & Data Results & Data Vital Signs (Past 12 Hours) Vital Signs Temp Pulse Resp BP Pulse Ox O2 Del Method 12/10/23 08:33 36.6 C 69 18 130/96 99 Room Air
[2023-12-10] MEDS: ACETAMINOPHEN 500 MG TAB ONE (09:25)
[2023-12-10] MEDS: SCOPOLAMINE 1 MG/72 HR TDSY PATCH TD STA (09:25)
[2023-12-10] MEDS: ACETAMINOPHEN 500 MG TAB PO STA (09:25)
[2023-12-10] MEDS: SCOPOLAMINE 1 MG/72 HR TDSY PATCH TD ONE (09:25)
[2023-12-10] MEDS ORDERED: ALBUMIN HUMAN 5% 12.5 GM/250 ML VIAL IV ONE (09:31)
[2023-12-10] MEDS ORDERED: DROPERIDOL 5 MG/2 ML VIAL ONE (09:33)
[2023-12-10] MEDS: ceFAZolin 2000MG 2,000 MG/15 ML SYR IV SCH (09:50)
[2023-12-10] MEDS ORDERED: ALBUTEROL HFA 8 GM INHALER INH ONE (10:11)
[2023-12-10] MEDS: BUPIVACAINE/EPINEPHRINE 0.25% 1:200,000 30 ML VIAL ONE (10:23)
[2023-12-10] MEDS: ceFAZolin 330 MG/ML 1 GM VIAL ONE (10:23)
[2023-12-10] MEDS ORDERED: ePHEDrine sulfate 50 MG/5 ML SYR ONE (10:26)
[2023-12-10] MEDS ORDERED: SUGAMMADEX SODIUM 200 MG/2 ML VIAL IV ONE (10:54)
[2023-12-10] MEDS ORDERED: HYDROmorphone INJ 2 MG/ML SYR/VIAL ONE (11:14)
[2023-12-10] MEDS: FLOSEAL HEMOSTATIC MATRIX 10ML TOP ONE (11:51)
--- NOTE | 2023-12-10 12:03 | Operative Report ---
Post Operative Report Pre & Post Diagnosis Operation Date: 12/10/23 09:50 Pre-Op Diagnosis: Lumbar Disc Herniation with Radiculopathy Lumbar spondylolisthesis Post-Op Diagnosis: Same I identified the patient and participated in the time-out.: Yes Procedure Operation Date: 12/10/23 09:50 Actual Procedures 1. Removal of posterior instrumentation L4-L5. #2 exploration of fusion L4-L5 L5-S1. #3 lumbar decompression bilaterally facetectomies and foraminotomies L2- L3 L3-L4 per #4 posterior spinal fusion L3-L4. #5 placement posterior instrumentation L3-L5. #6 interbody fusion L3-L4. #7 placement Spira 12 x 26 mm x 2 at L3-L4. #8 placement locally harvested morselized autograft and posterior gutters. #9 placement infuse collagen sponge combined with Koros bone graft in the posterior lateral gutters and Morpheus interbody space. Surgeon Fish Chavez, DO Engine Repairer Production Adrienne Segura Estimated Blood Loss 450 Findings See Below The patient is 5 foot 8 weighing over 100 kg with a BMI in excess of 35. Patient's body was did contribute to significant technical difficulty with positioning exposure and the procedure itself. This at least 50% increased operative time. Specimens None Indications This is a 58-year-old female presents above-mentioned diagnosis after failing course of nonoperative care she is here for surgical invention. Description of Procedure Patient was met with identified informed consent obtained. Patient was then taken to the operative suite underwent intubation placed in a prone position on the Victor Hugo table on top of the Sotero frame. All bony prominences well-padded eyes inspected to ensure no external pressure placed upon them. This point the lumbar spine was prepped and draped in normal sterile fashion. Sharp dissection with assistance of Bovie cautery from down to and exposing the lamina transverse processes of L3 and instrumentation L4-L5 and S1 bilaterally. And then proceeded move the hardware bilaterally retaining the S1 pedicle screws as they were ensconced and bone. Explored the fusion mass between L4-L5 L5-S1 noticing it to be mature and intact. I then performed a complete laminectomy of L3 including bilateral medial facetectomies and foraminotomies addressing severe spinal stenosis as well as retrieving massive amounts of free disc material within the canal. Then performed a partial laminectomy of L2 with bilateral medial facetectomies to address all subarticular stenosis. Pedicle screws then placed in L3-L4-L5 bilaterally with assistance of fluoroscopy and appropriate sized vesna placed. By way the transforaminal approach on the right a discectomy of L3-L4 was performed endplates guided to subcortical bleeding bone and a 12 x 26 mm Spira cage filled with Morpheus bone graft tapped in position. Then proceeded to the left transforaminal region. A discectomy performed at L3-L4 endplates guided to subcortical bleeding bone and a second 12 x 26 mm Spira cage filled with Morpheus bone graft tapped in position. The rods were then compressed locked in final position bilaterally. The transverse processes of L3-L4 burred to subcortical bleeding bone. Infuse collagen sponge combined with Koros and local autograft placed in the posterior gutters. 15 round ZENON drain inserted and the incision closed with 1 Vicryl the fascia 2-0 Vicryl subcutaneously and 4 Monocryl for final skin closure. Steri-Strips sterile dressing placed. Patient was then awakened taken to PACU stable condition. Please note spinal cord monitoring was utilized at the procedure no changes noted. Lastly Adrienne Segura was present out the entire procedure and all the patient positioning complex portion of the surgery and final skin closure. Im ordering 20 grams of Triple [place] Collagen Powder ([id number]) to treat an incision wound that was caused by a spine procedure. The incision is approximately 2 cm(W) x 4 cm(L) into the joint (D) in size and is a full thickness wound. Triple [place] collagen comes in 1 gram packets so 20 packets were ordered. Given the size of the wound, with light to moderate exudate I chose to order a 20 day supply. The patient will be provided instructions for proper application of the collagen wound kit. The patient will be asked to apply the collagen powder daily and then cover it with sterile dressings dispensed. Collagen was selected as I expect the collagen to attract monocytes and fibroblasts, act as a sacrificial substrate for MMPs, and ultimately proved a matrix for tissue and vessel growth. The collagen will act as a primary dressing in this scenario. It is medically necessary for proper healing of these wounds to improve bioavailability and contact with each wound surface, this is also to help prevent infection of wounds and promote healing ultimately leading to a better healing outcome and limit the risk of infection. I attest to the content of the Intraoperative Record and any orders documented therein. Any exceptions are noted below.
--- NOTE | 2023-12-10 13:03 | Fluoroscopy Report ---
FL lumbar spine 2-3V CLINICAL HISTORY: L3-L4 DECOMPRESSION AND FUSION, L4-S1 HARDWARE REMOVAL COMPARISON STUDY: Lumbar spine CT November 11, 2016. FLUOROSCOPY TIME: 13 seconds. Ary, r: 11.23 mGy FLUOROSCOPIC IMAGES: 2 FINDINGS: Fluoroscopy was provided during hardware removal and subsequent L3-L4 decompression and fus ion with interbody spacer placement. Visualized portions of the hardware are intact. No radiopaque fo reign bodies are present. IMPRESSION: Fluoroscopy provided during hardware removal with subsequent L3-L4 decompression and fus ion. ACT 112: Negative or not required by law. Electronically signed by: Galo Brush M.D. 12/10/2023 1:01 PM
--- NOTE | 2023-12-10 13:09 | Anesthesiology Progress Note ---
Date of Service December 10, 2023 Anesthesia Post Procedure Vital Signs Vital Signs: Temp Pulse Pulse Resp BP Pulse Ox O2 Del Method 12/10/23 12:50 37.0 C 101 H 12 150/94 H 99 Oxymask 12/10/23 12:40 89 15 157/85 H 98 Oxymask 12/10/23 12:30 85 11 L 135/79 99 Oxymask 12/10/23 12:22 37.1 C 93 H 16 140/82 100 Oxymask 12/10/23 08:33 36.6 C 69 18 130/96 99 Room Air O2 Flow Rate 12/10/23 12:50 5 12/10/23 12:40 10 12/10/23 12:30 10 12/10/23 12:22 10 12/10/23 08:33 Pain Intensity Back: Pain Intensity: 0 Left Leg: Pain Intensity: 7 Transfer of Care Handoff Completed per policy Notes Mental Status: alert / awake / arousable and participated in evaluation Nausea / Vomiting: adequately controlled Pain: adequately controlled Airway Patency, RR, SpO2: stable & adequate BP & HR: stable & adequate Hydration State: stable & adequate Anesthetic Complications: no major complications apparent and Pt Satisfied with anesthetic care
[2023-12-10] MEDS ORDERED: DO NOT ADMINISTER FLU VACCINE PRN (13:50)
[2023-12-10] MEDS ORDERED: traMADol HCL 50 MG TABLET PO PRN (13:50)
[2023-12-10] MEDS ORDERED: ALUMINUM/MAGNESIUM SUSP 30 ML UDC PO PRN (13:50)
[2023-12-10] MEDS ORDERED: DO NOT ADMINISTER PNEUMOCOCCAL VACCINE PRN (13:50)
[2023-12-10] MEDS ORDERED: FAMOTIDINE 20 MG TAB PO PRN (13:50)
[2023-12-10] MEDS ORDERED: oxyCODONE HCL IR 5 MG TAB (IMMEDIATE RELEASE) PO PRN (13:50)
[2023-12-10] MEDS ORDERED: HYDROmorphone INJ 0.5 MG/0.5 ML SYR IV PRN (13:50)
[2023-12-10] MEDS ORDERED: BACLOFEN 10 MG TAB PO PRN (13:50)
--- NOTE | 2023-12-10 14:22 | Hospitalist Consultation ---
Date of Consultation December 10, 2023 Assessment & Plan (1) Lumbar stenosis with neurogenic claudication: (2) Hx of breast cancer: (3) Hypertension: (4) Prediabetes: (5) Hypothyroidism: Plan Lumbar spondylolisthesis Lumbar disc herniation with Radiculopathy Status post L2-L5 lumbar decompression fusion by Dr. Chavez on 12/10/2023 - Pain management, bowel regimen and DVT ppx per the primary team - PT/OT consults - Follow am CBC to monitor for acute blood loss, last hgb was 13.1 pm 11/29/23 - Noted hypokalemia as outpatient, was replaced at that time, will follow with am labs HTN -May continue home medications including amlodipine, carvedilol, HCTZ Prediabetes -Diet and exercise to be encouraged throughout hospital stay -Last A1c 6.1 Hypothyroidism -Continue levothyroxine - Last TSH Hx Breast Cancer - Tamoxifen use 20 mg QPM - available here with our pharmacy so will continue it tonight DVT ppx: teds, scds Lines: 1 PIV FEN/GI: HH/DM diet CODE: Full code Dispo: From home, likely to remain in the hospital x 1-2 days A total of 50 minutes were spent with greater than 50% of that time face to face with the patient, personally reviewing all current laboratories, imaging studies, past medication reconciliation, outpatient chart review, and discussion with specialists to collaborate care for the patient with attending. Please see attending documentation for corrections and/or additions. Supervising Physician Co-Signing Physician Notes Pt was seen and examined by myself, Latanya Nael MD on the day of service. Care was coordinated with Laura Dasilva PA-C. 58yoF s/p L3-L4 decompression and fusion with L4-S1 hardware removal. Follow postop hgb. Pain control, DVT prophylaxis, PT/OT per primary team. Continue other home meds as ordered, follow AM labs. Hold HCTZ with any noted BARRETT. Otherwise as above. I spent a total [id number] coordinating, documenting, and providing care for this patient excluding time spent in the performance of separately billed services History of Present Illness Reason for Consultation: Medical management Requesting Physician: Dr. Chavez Attending Physician: Fish Chavez, History of Present Illness This is a 58-year-old female with PMHx of HTN, prediabetes, hypothyroidism, history of breast cancer status post chemo/XRT/surgical resection currently on tamoxifen 20 mg daily, mildly enlarged proximal ascending thoracic aorta 4.1 cm, arthritis, anxiety and nephrolithiasis who presents to the hospital for elective L2-L5 decompression fusion, L4-S1 hardware removal by Dr. Chavez on 12/10/2023.Patient is doing well, her and mother are present at bedside. She states she has no significant amount of pain, well-controlled presently. Is tolerating lunch, clear liquids without difficulty. Last bowel movement was yesterday. She notes that she had breast cancer in 2014, status post 2 lumpectomy, chemo, radiation and is to be on tamoxifen for life per her oncologist Dr. Michael. She is scheduled to have outpatient mammography sometime soon but has not yet done this due to scheduling this surgery. Allergies Allergy/AdvReac Type Severity Reaction Status Date / Time Fish Containing Products Allergy Severe Throat Verified 12/10/23 08:55 swelling, hives Sulfa (Sulfonamide Allergy Intermediate Hives Verified 12/10/23 08:55 Antibiotics) (Bactrim) sulfamethoxazole Allergy Intermediate Hives Verified 12/10/23 08:55 trimethoprim Allergy Intermediate Hives Verified 12/10/23 08:55 ketorolac AdvReac Mild Tachy Verified 12/10/23 08:55 Antiemetics AdvReac Mild Tachycardia Uncoded 12/10/23 08:55 (tolerates Zofran) Home Medications Medication Instructions Recorded Confirmed Type amlodipine 10 mg tablet 10 mg PO QAM 11/26/23 12/10/23 History baclofen 10 mg tablet 10 mg PO BID PRN Pain 11/26/23 12/10/23 History calcium 600 mg capsule 600 mg PO BID 11/26/23 12/10/23 History carvedilol 6.25 mg tablet 6.25 mg PO BID 11/26/23 12/10/23 History cyanocobalamin (vitamin B-12) 500 500 mcg PO DAILY 11/26/23 12/10/23 History mcg tablet duloxetine 20 mg capsule,delayed 20 mg PO QAM 11/26/23 12/10/23 History release sprinkle (Drizalma Sprinkle) gabapentin 400 mg capsule 400 mg PO TID 11/26/23 12/10/23 History hydrochlorothiazide 25 mg tablet 25 mg PO QAM 11/26/23 12/10/23 History levothyroxine 50 mcg tablet 50 mcg PO QAM 11/26/23 12/10/23 History omeprazole 40 mg capsule,delayed 40 mg PO QAM 11/26/23 12/10/23 History release ondansetron 4 mg disintegrating 4 mg PO Q8H PRN Nausea 11/26/23 12/10/23 History tablet oxycodone-acetaminophen 5 mg-325 1 tab PO Q8H PRN Pain 11/26/23 12/10/23 History mg tablet (Percocet) tamoxifen 20 mg tablet 20 mg PO QPM 11/26/23 12/10/23 History Patient History Medical History Anxiety Arthritis Enlarged aorta Echo 08/2023: Mildly enlarged proximal ascending thoracic aorta (4.1cm) History of kidney stones Hx of breast cancer Right (surgery/chemo/radiation) RUE limb restriction Hypertension Hypothyroidism Prediabetes Diet controlled Surgical History History of appendectomy History of cholecystectomy History of colonoscopy History of esophagogastroduodenoscopy (EGD) History of hysterectomy History of lumbar surgery x2 with hardware (last surgery 2013) History of lumpectomy of right breast History of tooth extraction Family History Other No family history of adverse response to anesthesia Social History Smoking Status: Never smoker Second Hand Exposure: No; Do You Dip or Chew Tobacco: No; Hx Alcohol Use: No Hx Substance Use: No Preferred Language: Urdu 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: No Beliefs That Will Affect Care: None Current Living Situation: Spouse Feels Safe at Home: Yes Safety Concerns: Feels Safe At This Time Assistive Devices: Cane and Glasses Review of Systems Review of Systems: Constitutional: No fever, sweats or chills Eyes: No diplopia, no worsening or blurred vision ENT: normal hearing, no trouble swallowing Respiratory: No cough, sputum, dyspnea at rest or on exertion Cardiovascular: No chest pain, tightness or palpitations Abdomen: No pain, nausea, vomiting, diarrhea or constipation : Magana cath in place Back: moderate well controlled pain Musculoskeletal: No joint pain, calf pain, swelling Neurologic: No weakness, numbness/tingling, or balance problems Psychiatric: No anxiety or depression Skin: No rash or itch Physical Exam Physical Exam: General: awake, alert, no apparent distress, obese white female Head: Normocephalic, atraumatic ENT: PERRL, EOMI, no pharyngeal exudate, mucous membranes moist Chest: Clear to auscultation, on room air, no adventitious breath sounds Cardiac: Regular rate and rhythm, no murmur, no JVD, normal peripheral pulses, good capillary refill Back: Dressing not observed due to pain with sitting forward. ZENON drain with serosanginous outs nearly full, will need drained. Abdominal: NABS x 4 quadrants, soft, nondistended, nontender to palpation, no rebound or guarding Extremities: Normal inspection, no peripheral edema or erythema, calfs nontender to palpation Psych: Normal mood and affect Neuro: AAO x 3, strength intact bilaterally and rated 5/5, no motor deficits, speech is clear, no peripheral sensory deficits Results & Data Results & Data Vital Signs (Past 12 Hours) Vital Signs Temp Pulse Pulse Resp BP Pulse Ox O2 Del Method 12/10/23 14:04 36.4 C L 90 16 131/85 91 Room Air 12/10/23 13:35 36.8 C 98 H 16 137/86 96 Room Air 12/10/23 12:50 37.0 C 101 H 12 150/94 H 99 Oxymask 12/10/23 12:40 89 15 157/85 H 98 Oxymask 12/10/23 12:30 85 11 L 135/79 99 Oxymask 12/10/23 12:22 37.1 C 93 H 16 140/82 100 Oxymask 12/10/23 08:33 36.6 C 69 18 130/96 99 Room Air O2 Flow Rate 12/10/23 14:04 12/10/23 13:35 12/10/23 12:50 5 12/10/23 12:40 10 12/10/23 12:30 10 12/10/23 12:22 10 12/10/23 08:33
[2023-12-10] MEDS: GABAPENTIN 400 MG CAP PO SCH (14:50)
[2023-12-10] MEDS: CHECK SCOPOLAMINE PATCH PLACEMENT SCH (14:50)
[2023-12-10] MEDS: SODIUM CHLORIDE 0.9% 1,000 ML IV SCH (15:30)
[2023-12-10] MEDS: oxyCODONE HCL IR 5 MG TAB (IMMEDIATE RELEASE) PO PRN (19:32)
[2023-12-10] MEDS: TAMOXIFEN CITRATE 10 MG TABLET PO SCH (19:32)
[2023-12-10] MEDS: carvediloL 6.25 MG TAB PO SCH (20:08)
[2023-12-10] MEDS ORDERED: NON-FORMULARY MEDICATION (Calcium 600 mg Capsule) PO SCH (21:00)
[2023-12-11] MEDS: LEVOTHYROXINE SODIUM 50 MCG TABLET PO SCH (05:26)
[2023-12-11] MEDS: ACETAMINOPHEN 1,000 MG/100 ML VIAL IV PRN (07:37)
[2023-12-11] MEDS: dexAMETHasone 6 MG in SYRINGE 0 ML IV SCH (07:42)
[2023-12-11 08:02] LABS: Basophils # (auto) 0.02 K/uL (0.00-0.20); Basophils % (auto) 0.2 %; Eosinophils # (auto) 0.03 K/uL (0.00-0.50); Eosinophils % (auto) 0.3 %; Hematocrit (blood only) 30.4 % (37.0-47.0); Hemoglobin 10.1 g/dl (12.0-16.0); Immature Granulocytes # (auto) 0.05 K/uL (0.01-0.20); Immature Granulocytes % (auto) 0.5 %; Lymphocytes # (auto) 2.05 K/uL (1.20-3.40); Lymphocytes % (auto) 19.4 %; Mean Corpuscular Hemoglobin 28.5 pg (25.0-34.0); Mean Corpuscular Hgb Conc 33.2 g/dL (32.0-36.0); Mean Corpuscular Volume 85.9 fL (80.0-100.0); Mean Platelet Volume 9.8 fL (9.4-12.4); Monocytes # (auto) 1.18 K/uL (0.11-0.59); Monocytes % (auto) 11.2 %; Neutrophils # (auto) 7.21 K/uL (1.40-6.50); Neutrophils % (auto) 68.4 %; Platelet Count 223 K/uL (130-400); RDW Coefficient of Variation 13.4 % (11.5-14.5); RDW Standard Deviation 41.8 fL (36.4-46.3); Red Blood Count 3.54 M/uL (4.20-5.40); White Blood Count 10.54 K/ul (4.8-10.8)
[2023-12-11 08:17] LABS: BUN Creatinine Ratio 17.4 (10-20); Calcium 8.4 mg/dl (8.6-10.3); Creatinine Clr Calc Pharmacy 113.3 ml/min; Est GFR (African American) 111.2 ml/min
[2023-12-11] MEDS: amLODIPine BESYLATE 5 MG TAB PO SCH (08:22)
[2023-12-11] MEDS: DULoxetine HCL 20 MG CAP PO SCH (08:23)
[2023-12-11] MEDS: hydroCHLOROthiazide 25 MG TAB PO SCH (08:23)
[2023-12-11] MEDS: CYANOCOBALAMIN (B-12) 500 MCG TABLET PO SCH (08:23)
[2023-12-11] MEDS: PANTOprazole 40 MG TAB PO SCH (08:24)
[2023-12-11] MEDS ORDERED: amLODIPine BESYLATE 5 MG TAB PO SCH (09:00)
[2023-12-11] MEDS: POTASSIUM CHLORIDE CRTAB 20 MEQ TABCR PO STA (09:19)
--- NOTE | 2023-12-11 09:25 | Orthopedic Progress Note ---
Date of Service December 11, 2023 Assessment & Plan (1) Lumbar stenosis with neurogenic claudication: Plan: At this point we will continue physical therapy monitor her ZENON operatively discharged home next few days. Admission and Anticipated Discharge Date Admission Date: December 10, 2023 Subjective Back pain controlled leg symptoms markedly improved Physical Exam Physical Exam: Patient is up and ambulating halls. She is constricted testing. Appears comfortable. Results & Data Vital Signs (Past 12 Hours) Vital Signs Temp Pulse Pulse Resp BP Pulse Ox O2 Del Method 12/11/23 09:02 82 142/82 H 12/11/23 07:36 36.4 C L 77 18 110/80 97 Room Air 12/11/23 03:00 37.1 C 81 18 133/75 96 Room Air 12/10/23 23:14 36.8 C 89 16 122/79 95 Room Air Queries Orthopedic Spine Obesity: Yes
[2023-12-11] MEDS: HYDROmorphone INJ 0.5 MG/0.5 ML SYR IV PRN (10:05)
--- NOTE | 2023-12-11 10:50 | Orthopedic Progress Note ---
Date of Service December 11, 2023 Assessment & Plan (1) Lumbar stenosis with neurogenic claudication: Plan: At this time we will continue physical therapy monitor her ZENON output over the discharge over the next few days. Admission and Anticipated Discharge Date Admission Date: December 10, 2023 Subjective Patient's back pain is controlled leg pain markedly improved Physical Exam Physical Exam: Patient is up and ambulating halls. Discussed rectal testing. Results & Data Vital Signs (Past 12 Hours) Vital Signs Temp Pulse Pulse Resp BP Pulse Ox O2 Del Method 12/11/23 09:02 82 142/82 H 12/11/23 07:36 36.4 C L 77 18 110/80 97 Room Air 12/11/23 03:00 37.1 C 81 18 133/75 96 Room Air 12/10/23 23:14 36.8 C 89 16 122/79 95 Room Air Queries Orthopedic Spine Obesity: Yes
--- NOTE | 2023-12-11 14:20 | Hospitalist Progress Note ---
Date of Service December 11, 2023 Assessment & Plan (1) Lumbar stenosis with neurogenic claudication: (2) Hx of breast cancer: (3) Hypertension: (4) Prediabetes: (5) Hypothyroidism: Plan Lumbar spondylolisthesis Lumbar disc herniation with Radiculopathy Status post L2-L5 lumbar decompression fusion by Dr. Chavez on 12/10/2023 And L4-S1 hardware removal - Pain management, bowel regimen and DVT ppx per the primary team Management as per orthospine Minimal pain and has been getting physical therapy -Her labs remain unremarkable Hypokalemia Admits to have hypokalemia as an outpatient and has been using getorate to help hypokalemia Received for review of potassium this morning Will advise 20 mg potassium daily as an outpatient HTN -May continue home medications including amlodipine, carvedilol, HCTZ -Hypokalemia likely secondary to HCTZ Prediabetes -Diet and exercise to be encouraged throughout hospital stay -Last A1c 6.1 Hypothyroidism -Continue levothyroxine -Will check TSH Hx Breast Cancer - Tamoxifen use 20 mg QPM - available here with our pharmacy so will continue it tonight DVT ppx: teds, scds Lines: 1 PIV FEN/GI: HH/DM diet CODE: Full code Dispo: From home, likely to remain in the hospital x 1-2 days Admission and Anticipated Discharge Date Admission Date: December 10, 2023 Subjective 12/11/2023 Patient was seen and examined in medical floor She is status post L3-L4 decompression fusion on 12/10/2023 Has been getting minimal pain and physical therapy is ongoing Denies any chest pain, palpitation or shortness of breath and no other medical symptoms Review of Systems Review of Systems: All systems reviewed and unremarkable except as noted below Physical Exam Physical Exam: Lying in bed without any acute distress Constitutional: well developed, well nourished, + ill appearing and + obese Eyes: PERRL, conjunctivae normal, anicteric sclerae ENMT: external ear and nose normal, oropharynx normal Neck: trachea midline, no thyromegaly Respiratory: no respiratory distress Auscultation: lungs clear to auscultation bilaterally Cardiovascular: Rate/Rhythm: regular rate and regular rhythm; not tachycardic Heart Sounds: normal S1 and normal S2; no murmur Extremities: no edema Gastrointestinal (Abdomen): Inspection/Auscultation: normal bowel sounds; abdomen not distended Percussion/Palpation: abdomen soft; abdomen nontender Musculoskeletal: No acute arthritis in any of the joints Neurologic: normal touch/pain/proprioception and moves all extremities; no focal motor deficits Psychiatric: A+Ox3, euthymic affect Lymphatic: no cervical or axillary lymphadenopathy Results & Data Results & Data Vital Signs (Past 12 Hours) Vital Signs Temp Pulse Pulse Resp BP Pulse Ox O2 Del Method 12/11/23 11:20 37.0 C 81 16 115/72 95 Room Air 12/11/23 09:02 82 142/82 H 12/11/23 07:36 36.4 C L 77 18 110/80 97 Room Air 12/11/23 03:00 37.1 C 81 18 133/75 96 Room Air Laboratory Results Short CBC 12/11/23 Range/Units 07:09 WBC 10.54 (4.8-10.8) K/ul Hgb 10.1 L (12.0-16.0) g/dl Hct 30.4 L (37.0-47.0) % Plt Count 223 (130-400) K/uL [facility] 12/11/23 07:09 Sodium 138 Potassium 3.0 L Chloride 103 Carbon Dioxide 27 BUN 12 Creatinine 0.69 Glucose 128 H Calcium 8.4 L Medications Administered Current Inpatient Medications Al Hydrox/Mg Hydrox/Simethicone (Aluminum/Magnesium Susp 30 Ml Udc) 30 ml PO Q6H PRN PRN Reason: Dyspepsia Stop: 01/09/24 13:49 Amlodipine Besylate (Amlodipine Besylate 5 Mg Tab) 10 mg PO QAM [facility] Stop: 01/10/24 08:59 Last Admin: 12/11/23 08:22 Dose: 10 mg Baclofen (Baclofen 10 Mg Tab) 10 mg PO BID PRN PRN Reason: Pain Stop: 01/09/24 13:49 Carvedilol (Carvedilol 6.25 Mg Tab) 6.25 mg PO BID [facility] Stop: 01/09/24 20:59 Last Admin: 12/11/23 09:04 Dose: 6.25 mg Cyanocobalamin (Cyanocobalamin (B-12) 500 Mcg Tablet) 500 mcg PO DAILY [facility] Stop: 01/10/24 08:59 Last Admin: 12/11/23 08:23 Dose: 500 mcg Duloxetine HCl (Duloxetine Hcl 20 Mg Cap) 20 mg PO QAM [facility] Stop: 01/10/24 08:59 Last Admin: 12/11/23 08:23 Dose: 20 mg Famotidine (Famotidine 20 Mg Tab) 20 mg PO Q12H PRN PRN Reason: Dyspepsia Stop: 01/09/24 13:49 Gabapentin (Gabapentin 400 Mg Cap) 400 mg PO TID [facility] Stop: 01/09/24 13:59 Last Admin: 12/11/23 09:03 Dose: 400 mg Hydrochlorothiazide (Hydrochlorothiazide 25 Mg Tab) 25 mg PO QAM [facility] Stop: 01/10/24 08:59 Last Admin: 12/11/23 08:23 Dose: 25 mg Hydromorphone HCl (Hydromorphone Inj 0.5 Mg/0.5 Ml Syr) 0.25 mg IV Q3H PRN PRN Reason: Pain (1,2,3,4,5) & Pre PT Stop: 12/24/23 13:49 Last Admin: 12/11/23 10:05 Dose: 0.25 mg Hydromorphone HCl (Hydromorphone Inj 0.5 Mg/0.5 Ml Syr) 0.5 mg IV Q3H PRN PRN Reason: Pain (6,7,8,9,10) Stop: 12/24/23 13:49 Dexamethasone 6 mg/ Syringe 1.5 mls @ 1 mls/min IV DAILY [facility] Stop: 12/13/23 09:02 Last Admin: 12/11/23 07:42 Dose: 1 mls/min Influenza Virus Vaccine Quadrival (Do Not Administer Flu Vaccine) 1 each N/A PRN PRN PRN Reason: Notification Stop: 01/09/24 13:49 Levothyroxine Sodium (Levothyroxine Sodium 50 Mcg Tablet) 50 mcg PO DAILYBB [facility] Stop: 01/10/24 06:29 Last Admin: 12/11/23 05:26 Dose: 50 mcg Miscellaneous (Check Scopolamine Patch Placement) 1 each N/A QS [facility] Stop: 12/13/23 05:59 Last Admin: 12/11/23 08:20 Dose: 1 each Miscellaneous (Remove Transderm-Scop Patch) 1 each N/A ONE ONE Stop: 12/13/23 06:01 Oxycodone HCl (Oxycodone Hcl Ir 5 Mg Tab (Immediate Release)) 5 mg PO Q4H PRN PRN Reason: MODERATE Pain (4,5,6) & Pre PT Stop: 12/24/23 13:49 Oxycodone HCl (Oxycodone Hcl Ir 5 Mg Tab (Immediate Release)) 10 mg PO Q4H PRN PRN Reason: SEVERE Pain (7,8,9,10) Stop: 12/24/23 13:49 Last Admin: 12/11/23 07:37 Dose: 10 mg Pantoprazole Sodium (Pantoprazole 40 Mg Tab) 40 mg PO QAM [facility] Stop: 01/10/24 08:59 Last Admin: 12/11/23 08:24 Dose: 40 mg Pneumococcal Polyvalent Vaccine (Do Not Administer Pneumococcal Vaccine) 1 each N/A PRN PRN PRN Reason: Notification Stop: 01/09/24 13:49 Tamoxifen Citrate (Tamoxifen Citrate 10 Mg Tablet) 20 mg PO QPM [facility] Stop: 01/09/24 20:59 Last Admin: 12/10/23 19:32 Dose: 20 mg Tramadol HCl (Tramadol Hcl 50 Mg Tablet) 100 mg PO Q4H PRN PRN Reason: SEVERE Pain (7,8,9,10) Stop: 01/09/24 13:49 Tramadol HCl (Tramadol Hcl 50 Mg Tablet) 50 mg PO Q4H PRN PRN Reason: MODERATE Pain (4,5,6) & Pre PT Stop: 01/09/24 13:49
[2023-12-11] MEDS: POLYETHYLENE (MIRALAX) 17 GM PACK PO SCH (17:14)
[2023-12-11] MEDS: traMADol HCL 50 MG TABLET PO PRN (19:44)
[2023-12-12 07:22] LABS: Basophils # (auto) 0.05 K/uL (0.00-0.20); Basophils % (auto) 0.4 %; Eosinophils # (auto) 0.08 K/uL (0.00-0.50); Eosinophils % (auto) 0.6 %; Hematocrit (blood only) 27.9 % (37.0-47.0); Hemoglobin 9.2 g/dl (12.0-16.0); Immature Granulocytes % (auto) 0.8 %; Lymphocytes # (auto) 2.74 K/uL (1.20-3.40); Lymphocytes % (auto) 21.9 %; Mean Corpuscular Hemoglobin 28.3 pg (25.0-34.0); Mean Corpuscular Volume 85.8 fL (80.0-100.0); Mean Platelet Volume 9.9 fL (9.4-12.4); Monocytes # (auto) 1.49 K/uL (0.11-0.59); Monocytes % (auto) 11.9 %; Neutrophils # (auto) 8.05 K/uL (1.40-6.50); Neutrophils % (auto) 64.4 %; Platelet Count 192 K/uL (130-400); RDW Coefficient of Variation 13.7 % (11.5-14.5); RDW Standard Deviation 42.7 fL (36.4-46.3); Red Blood Count 3.25 M/uL (4.20-5.40); White Blood Count 12.51 K/ul (4.8-10.8)
[2023-12-12 07:57] LABS: Calcium 8.5 mg/dl (8.6-10.3); Creatinine Clr Calc Pharmacy 111.7 ml/min; Est GFR (African American) 110.7 ml/min; Est GFR (Non-African American) 95.5 ml/min; Magnesium 1.7 mg/dl (1.7-2.4); Potassium 3.1 mmol/L (3.5-5.1)
[2023-12-12 08:10] LABS: Thyroid Stimulating Hormone 2.491 uIu/ml (0.300-4.500)
--- NOTE | 2023-12-12 08:19 | Orthopedic Progress Note ---
Date of Service December 12, 2023 Assessment & Plan (1) Lumbar stenosis with neurogenic claudication: Plan: Today we will continue physical therapy monitor ZENON output anticipate discharge home tomorrow. Admission and Anticipated Discharge Date Admission Date: December 10, 2023 Subjective Back pain is controlled leg symptoms are improved Physical Exam Physical Exam: Patient is concerned to testing. He is very comfortable. Results & Data Vital Signs (Past 12 Hours) Vital Signs Temp Pulse Resp BP Pulse Ox O2 Del Method 12/12/23 08:08 37.1 C 75 18 110/74 93 Room Air Queries Orthopedic Spine Acute Posthemorrhagic Anemia: Yes Obesity: Yes
[2023-12-12] MEDS: POTASSIUM CHLORIDE CRTAB 20 MEQ TABCR PO SCH (08:54)
[2023-12-12] MEDS: MAGNESIUM SULFATE / D5W 1 GM/100 ML BAG IV ONE (09:49)
[2023-12-12] MEDS: POTASSIUM CHLORIDE CRTAB 20 MEQ TABCR PO ONE (09:49)
--- NOTE | 2023-12-12 17:37 | Hospitalist Progress Note ---
Date of Service December 12, 2023 Assessment & Plan (1) Lumbar stenosis with neurogenic claudication: (2) Hx of breast cancer: (3) Hypertension: (4) Prediabetes: (5) Hypothyroidism: Plan Lumbar stenosis with neurogenic claudication Lumbar Disc Herniation with Radiculopathy Postoperative acute blood loss anemia --S/P lumbar decompression, fusion surgery by Dr. Chavez on 12/10/2023 Activity, pain control, DVT prophylaxis as per primary team Continue PT OT Bowel regimen to prevent constipation No indication for blood transfusion currently Monitor CBC Leukocytosis Likely secondary to dexamethasone No obvious infection currently Monitor CBC Hypokalemia Likely due to HCTZ Monitor and replete electrolytes as needed Will likely need to be discharged on scheduled potassium supplements Advised to get BMP in 1 week on discharge and follow-up with PCP for further recommendations HTN Continue Coreg, amlodipine Also on HCTZ Monitor BP Prediabetes -Diet and exercise to be encouraged throughout hospital stay -Last A1c 6.1 Hypothyroidism -Continue levothyroxine Hx Breast Cancer - Tamoxifen use 20 mg QPM - available here with our pharmacy so will continue it tonight DVT ppx: As per primary team CODE STATUS: Full code Admission and Anticipated Discharge Date Admission Date: December 10, 2023 Subjective Patient is seen and examined at bedside Back pain in surgical site is controlled + Flatus, no bowel movement today Denies any chest pain, dyspnea, nausea, vomiting, abdominal pain No other complaints Review of Systems Review of Systems: All systems reviewed & are unremarkable except as noted in Subjective Physical Exam Physical Exam: Physical Exam: Vitals signs as noted above General Appearance: Obese, no apparent distress Head: normocephalic, Atraumatic Eyes: normal inspection, EOMI Neck: supple, Trachea midline Respiratory/Chest: Normal breath sounds, CTA, No accessory muscle use Cardiovascular: S1, S2, No murmur Abdomen/GI:Soft, Non tender, Bowel sounds present Back: Surgical site in dressing Extremities/Musculoskeletal:normal inspection, no edema Neurologic/Psych:AAOX3, grossly no focal neurological deficits Skin: normal color, warm Results & Data Results & Data Vital Signs (Past 12 Hours) Vital Signs Temp Pulse Resp BP Pulse Ox O2 Del Method 12/12/23 08:08 37.1 C 75 18 110/74 93 Room Air Laboratory Results Short CBC 12/12/23 Range/Units 06:48 WBC 12.51 H (4.8-10.8) K/ul Hgb 9.2 L (12.0-16.0) g/dl Hct 27.9 L (37.0-47.0) % Plt Count 192 (130-400) K/uL [place] 12/12/23 06:48 Sodium 138 Potassium 3.1 L Chloride 103 Carbon Dioxide 29 BUN 14 Creatinine 0.70 Glucose 131 H Calcium 8.5 L
[2023-12-13 07:00] LABS: Hematocrit (blood only) 27.4 % (37.0-47.0); Mean Corpuscular Hemoglobin 28.7 pg (25.0-34.0); Mean Corpuscular Hgb Conc 32.8 g/dL (32.0-36.0); Mean Corpuscular Volume 87.3 fL (80.0-100.0); Mean Platelet Volume 9.9 fL (9.4-12.4); Platelet Count 206 K/uL (130-400); RDW Coefficient of Variation 13.5 % (11.5-14.5); RDW Standard Deviation 42.7 fL (36.4-46.3); Red Blood Count 3.14 M/uL (4.20-5.40); White Blood Count 11.81 K/ul (4.8-10.8)
[2023-12-13 07:19] LABS: BUN Creatinine Ratio 18.8 (10-20); Calcium 8.8 mg/dl (8.6-10.3); Creatinine Clr Calc Pharmacy 113.3 ml/min; Est GFR (African American) 111.2 ml/min; Magnesium 1.9 mg/dl (1.7-2.4); Potassium 3.3 mmol/L (3.5-5.1)
[2023-12-13] MEDS: POTASSIUM CHLORIDE CRTAB 20 MEQ TABCR PO ONE (10:48)
[2023-12-13] MEDS: DOCUSATE SODIUM 100 MG CAP PO SCH (10:48)
[2023-12-13] MEDS: SENNA 8.6 MG TAB PO SCH (11:18)
--- NOTE | 2023-12-13 11:36 | XRay Report ---
KUB CLINICAL HISTORY: Constipation FINDINGS: 3 AP, portable, supine abdominal radiographs are correlated with abdominal CT dated 7. There is gaseous distention of the colon with moderate fecal retention on the right. The small bow el loops are normal in caliber. No evidence of intraperitoneal free air is seen on these supine image s. Cholecystectomy clips are noted in the right upper quadrant. There are no abnormal abdominal calci fications. A phlebolith in the left hemipelvis is unchanged. Postsurgical change is noted at the lumb osacral junction with a surgical drain in place. IMPRESSION: 1. There is gaseous distention of the colon with moderate fecal retention in the right colon. 2. Given evidence of recent surgery service may represent an ileus. Clinical correlation will be requ ired. 3. There is no radiographic evidence of high-grade small bowel obstruction. Electronically signed by: Maximino Ocampo M.D. 12/13/2023 11:34 AM
--- NOTE | 2023-12-13 13:38 | Orthopedic Progress Note ---
Date of Service December 13, 2023 Assessment & Plan (1) Lumbar stenosis with neurogenic claudication: Plan: We will continue her bowel regiment. Encourage ambulation as tolerated. Change in DC her dressing today. Admission and Anticipated Discharge Date Admission Date: December 10, 2023 Subjective Back pain is controlled leg pain improved. She denies any nausea or vomiting. She is having positive flatus. She is tolerating diet. Physical Exam Physical Exam: On exam she does appear comfortable. Abdomen is soft. She is good strength testing. Results & Data Vital Signs (Past 12 Hours) Vital Signs Temp Pulse Resp BP Pulse Ox O2 Del Method 12/13/23 12:45 36.8 C 70 18 140/83 96 Room Air 12/13/23 08:02 62 22 126/84 95 Room Air Queries Orthopedic Spine Acute Posthemorrhagic Anemia: Yes Obesity: Yes
--- NOTE | 2023-12-13 14:22 | Hospitalist Progress Note ---
Date of Service December 13, 2023 Assessment & Plan (1) Lumbar stenosis with neurogenic claudication: (2) Hx of breast cancer: (3) Hypertension: (4) Prediabetes: (5) Hypothyroidism: Plan Lumbar stenosis with neurogenic claudication Lumbar Disc Herniation with Radiculopathy Postoperative acute blood loss anemia --S/P lumbar decompression, fusion surgery by Dr. Chavez on 12/10/2023 Activity, pain control, DVT prophylaxis as per primary team Continue PT OT Bowel regimen to prevent constipation No indication for blood transfusion currently Monitor CBC Hb 9.0 today Constipation --KUB:There is gaseous distention of the colon with moderate fecal retention in the right colon. Given evidence of recent surgery service may represent an ileus. Clinical correlation will be required. -- Minimize narcotic use as able --Encouraged to ambulate --Started on bowel regimen --Increase oral fluid intake Leukocytosis Likely secondary to dexamethasone No obvious infection currently Monitor CBC Hypokalemia Likely due to HCTZ Monitor and replete electrolytes as needed Will likely need to be discharged on scheduled potassium supplements Advised to get BMP in 1 week on discharge and follow-up with PCP for further recommendations Continue potassium supplement HTN Continue Coreg, amlodipine Also on HCTZ Monitor BP Prediabetes -Diet and exercise to be encouraged throughout hospital stay -Last A1c 6.1 Hypothyroidism -Continue levothyroxine Hx Breast Cancer - Tamoxifen use 20 mg QPM - available here with our pharmacy so will continue it tonight DVT ppx: As per primary team CODE STATUS: Full code Admission and Anticipated Discharge Date Admission Date: December 10, 2023 Subjective Patient is seen and examined at bedside Reports constipation Back pain is controlled Also states having some abdominal discomfort which she attributes to constipation No nausea, vomiting, chest pain, dyspnea today Review of Systems Review of Systems: All systems reviewed & are unremarkable except as noted in Subjective Physical Exam Physical Exam: Physical Exam: Vitals signs as noted above General Appearance: Obese, no apparent distress Head: normocephalic, Atraumatic Eyes: normal inspection, EOMI Neck: supple, Trachea midline Respiratory/Chest: Normal breath sounds, CTA, No accessory muscle use Cardiovascular: S1, S2, No murmur Abdomen/GI:Soft, Non tender, Bowel sounds present Back: Surgical site in dressing Extremities/Musculoskeletal:normal inspection, no edema Neurologic/Psych:AAOX3, grossly no focal neurological deficits Skin: normal color, warm Results & Data Results & Data Vital Signs (Past 12 Hours) Vital Signs Temp Pulse Resp BP Pulse Ox O2 Del Method 12/13/23 12:45 36.8 C 70 18 140/83 96 Room Air 12/13/23 08:02 62 22 126/84 95 Room Air Laboratory Results Short CBC 12/13/23 Range/Units 06:27 WBC 11.81 H (4.8-10.8) K/ul Hgb 9.0 L (12.0-16.0) g/dl Hct 27.4 L (37.0-47.0) % Plt Count 206 (130-400) K/uL BMP 12/13/23 06:27 Sodium 137 Potassium 3.3 L Chloride 101 Carbon Dioxide 27 BUN 13 Creatinine 0.69 Glucose 157 H Calcium 8.8
[2023-12-13] MEDS: POLYETHYLENE (MIRALAX) 17 GM PACK PO SCH (22:42)
[2023-12-13] MEDS: POTASSIUM CHLORIDE CRTAB 20 MEQ TABCR PO SCH (22:46)
[2023-12-14 06:38] LABS: Hematocrit (blood only) 27.9 % (37.0-47.0); Hemoglobin 9.3 g/dl (12.0-16.0); Mean Corpuscular Hgb Conc 33.3 g/dL (32.0-36.0); Mean Corpuscular Volume 86.9 fL (80.0-100.0); Platelet Count 227 K/uL (130-400); RDW Coefficient of Variation 13.5 % (11.5-14.5); RDW Standard Deviation 42.5 fL (36.4-46.3); Red Blood Count 3.21 M/uL (4.20-5.40); White Blood Count 12.58 K/ul (4.8-10.8)
[2023-12-14 06:59] LABS: BUN Creatinine Ratio 22.1 (10-20); Calcium 8.9 mg/dl (8.6-10.3); Creatinine Clr Calc Pharmacy 114.9 ml/min; Est GFR (African American) 111.8 ml/min; Est GFR (Non-African American) 96.4 ml/min; Magnesium 1.8 mg/dl (1.7-2.4); Potassium 3.7 mmol/L (3.5-5.1)
[2023-12-14 07:49] VITALS: BP 137/85; PULSE 66; RESP 16; TEMP 98.2; O2SAT 98
--- NOTE | 2023-12-14 09:43 | Discharge Summary ---
Date of Service December 14, 2023 Admission HPI Per Admitting Provider This is a 58-year-old female who presents with chronic persistent back and leg pain after failing course of nonoperative care she is here for surgical invention. Principal Diagnosis Lumbar spinal stenosis with neurogenic claudication Discharge Data Allergies Allergy/AdvReac Type Severity Reaction Status Date / Time Fish Containing Products Allergy Severe Throat Verified 12/10/23 08:55 swelling, hives Sulfa (Sulfonamide Allergy Intermediate Hives Verified 12/10/23 08:55 Antibiotics) (Bactrim) sulfamethoxazole Allergy Intermediate Hives Verified 12/10/23 08:55 trimethoprim Allergy Intermediate Hives Verified 12/10/23 08:55 ketorolac AdvReac Mild Tachy Verified 12/10/23 08:55 Antiemetics AdvReac Mild Tachycardia Uncoded 12/10/23 08:55 (tolerates Zofran) Consultations 12/10/23 13:50 Consult Hospitalist Routine Procedures Performed Operation Date: 12/10/23 09:50 Actual Procedures p L3-L4 Decompression and Fusion, Spinal Cord Monitoring(Not Applicable) - Fish Chavez DO s L4-S1 Hardware Removal(Not Applicable) - Fish Chavez DO Ordered Studies 12/10/23 09:50 FL lumbar spine 2-3V Routine Hospital Course (1) Lumbar stenosis with neurogenic claudication: Patient with lumbar decompression fusion tolerated as well as taken to orthopedic for postoperative. Postoperatively she progressed steadily. Bowels working postop day 3. Back pain controlled. Leg pain improved. ZENON drain decreased appropriate. Subsequent discharge home. Discharge orders instructions from the chart for further review. Total Time Total Time Spent Total Time Spent (In Minutes): 20 Discharge Plan Discharge Items Patient Disposition: Home - Self-Care Reason For Visit: Lumbar Disc Herniation with Radiculopathy, Spondyl Discharge Diagnosis: Lumbar spinal stenosis with neurogenic claudication Activity: As commented below Non-emergency contact: Primary Care Provider Call non-emergency contact if: you have any medication questions Follow-up/Referrals: Tom Martinez MD [Primary Care Provider] - Diet: Regular Addtl Attending Provider Instructions: ACTIVITY RECOMMENDATIONS: SELF CARE INSTRUCTIONS AFTER THORACIC/LUMBAR FUSIONS 1. You may walk to your tolerance. It is good exercise for your legs and back. Expect some back and intermittent leg aches and pains. 2. You may perform "counter-top" level activities (make a sandwich, kaleigh with a project, etc.). 3. No bending or lifting of more than 10 pounds or back twisting of any nature (roll like a log when turning in bed). 4. You may ride in a car for 20-30 minutes at a time. No driving until after your first visit with your doctor. 5. Frequent changes of position and restricting sitting to 30 minutes at a time will help limit the amount of back spasms and stiffness you may experience. 6. You may discontinue the use of ambulatory aids (cane, crutches, etc.) once your strength and confidence allow. 7. You may barge engineer the shower and let water strike your incision when you arrive home at least once daily. Do not take a tub bath, sit in a hot tub or go into a swimming pool until after your first recheck in the office. SPECIAL CARE INSTRUCTIONS: VERY IMPORTANT TO READ AND REVIEW A. Your surgical incision has been closed with a cosmetic suture under the skin that will dissolve in about 6 weeks. In 14 days, you can use a pair of clean scissors and cut the suture that is left outside of the skin at the ends of your incision. 1. The small skin tapes can be removed 7 days after surgery if they have not fallen off by that point. 2. You may keep the wound open to air as much as possible to promote healing after post-op day number 5 unless told otherwise by your doctor. 3. If you think the wound looks like it is becoming infected (redness or worsening drainage) and/or you are experiencing fever, chill or worsening back pain and muscle spasms, contact the office so that we may evaluate you as soon as possible. B. Complications are uncommon, but please contact us if you have any signs or symptoms of: 1. wound infection (fever higher than 102.5 degrees F, redness, separation of wound, drainage, or increasing pain from the incision) 2. blood clots in legs (pain, swelling, redness and warmth in legs) 3. urinary tract infection (fever higher than 102.5 degrees F, burning upon urination or increased frequency of urination) 4. nerve problems (inability to walk on your toes or heels, numbness, loss of bowel or bladder control) 5. any other symptoms that concern you C. Please call the office at if you have any concerns or questions about your operation or recovery. D. No smoking! Smoking drastically decreases the chance of a solid fusion. E. Do not take any anti-inflammatory medications (Indocin, Advil, Motrin, Aspirin, Naprosyn, etc.) as these may inhibit the chance of a solid fusion. Tylenol is okay to take for pain. MANAGING PAIN AFTER SPINAL SURGERY 1. Narcotic medication is intended for short-term use and will be provided for surgical pain. Surgical pain usually lasts for a period of 4-6 weeks. Narcotic medication includes Percocet, Vicodin, Darvocet, Tylenol #3 or Lortab. 2. Longer-term pain is more appropriately treated with non-narcotic medication such as Tylenol ES. 3. Muscle spasm is not appropriately treated with narcotics. Muscle relaxers such as Soma, Flexeril or Skelaxin can be used along with Tylenol ES. 4. Remember that we all live with some "aches and pains". This is not unusual or uncommon after an injury or as we get older. a. Back pain is expected and may include muscle spasms for 4 to 6 weeks after surgery. The pain should gradually improve. If the pain worsens for no apparent reason, please contact the office. b. Intermittent leg pain may also be experienced and should not be concerned about unless it worsens for no apparent reason. If so, please contact the office. 5. We will provide appropriate medication within the normal guidelines of their prescribed use. We will also be very cautious and aware of potential abuse and extended duration of patients' medication needs. a. Pain medications are for your comfort and to assist with sleep and rest so that the tissue can heal. They are not provided in order to return to normal activity and should not be used through the day. To do so or worsening pain at night can result from ongoing tissue damage and development of tolerance to the prescribed medicine. 6. Please allow 2-3 days to process refills. Prescriptions will not be mailed but must be picked up at the office. FOLLOW UP VISIT: Keep your scheduled follow-up appointment. Any questions, please call the office at . Pending Studies at Discharge: No Stand-Alone Forms: [facility], Smoking Cessation Medications and DC Order Prescriptions: New tramadol 50 mg tablet 50 mg PO Q6H PRN (Reason: pain, moderate) Qty: 30 0RF oxycodone 5 mg tablet 5 mg PO Q6H PRN (Reason: pain) Qty: 30 0RF Continued carvedilol 6.25 mg Tablet 6.25 mg PO BID Rx Instructions: must administer with a meal/food gabapentin 400 mg Capsule 400 mg PO TID omeprazole 40 mg Capsule,Delayed Release(Dr/Ec) 40 mg PO QAM oxycodone-acetaminophen [Percocet] 5-325 mg Tablet 1 tab PO Q8H PRN (Reason: Pain) baclofen 10 mg Tablet 10 mg PO BID PRN (Reason: Pain) amlodipine 10 mg Tablet 10 mg PO QAM levothyroxine 50 mcg Tablet 50 mcg PO QAM hydrochlorothiazide 25 mg Tablet 25 mg PO QAM ondansetron 4 mg Tablet,Disintegrating 4 mg PO Q8H PRN (Reason: Nausea) tamoxifen 20 mg Tablet 20 mg PO QPM Drizalma Sprinkle 20 mg Capsule, Delayed Rel Sprinkle 20 mg PO QAM calcium 600 mg Capsule 600 mg PO BID cyanocobalamin (vitamin B-12) 500 mcg Tablet 500 mcg PO DAILY Discharge Orders: Discharge Order (Routine); Ordered 12/14/23 Ordered By: Fish Chavez Admission Data Admit Date/Time: 12/10/23 12:09 Attending Provider: Fish Chavez Admit Provider: Fish Chavez Primary Care Provider: Tom Martinez Other Providers: Hallie Nair
--- NOTE | 2023-12-14 10:15 | Hospitalist Progress Note ---
Date of Service December 14, 2023 Assessment & Plan (1) Lumbar stenosis with neurogenic claudication: (2) Hx of breast cancer: (3) Hypertension: (4) Prediabetes: (5) Hypothyroidism: Plan Lumbar stenosis with neurogenic claudication Lumbar Disc Herniation with Radiculopathy Postoperative acute blood loss anemia --S/P lumbar decompression, fusion surgery by Dr. Chavez on 12/10/2023 Activity, pain control, DVT prophylaxis as per primary team Continue PT OT Bowel regimen to prevent constipation No indication for blood transfusion currently Monitor CBC Hb 9.3 today Plan to discharge home today Constipation --KUB:There is gaseous distention of the colon with moderate fecal retention in the right colon. Given evidence of recent surgery service may represent an ileus. Clinical correlation will be required. -- Minimize narcotic use as able --Encouraged to ambulate -- Continue bowel regimen --Increase oral fluid intake -- Resolved Leukocytosis Likely secondary to dexamethasone No obvious infection currently Monitor CBC--stable Hypokalemia Likely due to HCTZ Monitor and replete electrolytes as needed Will likely need to be discharged on scheduled potassium supplements Advised to get BMP in 1 week on discharge and follow-up with PCP for further recommendations Continue potassium supplement HTN Continue Coreg, amlodipine Also on HCTZ Monitor BP Prediabetes -Diet and exercise to be encouraged throughout hospital stay -Last A1c 6.1 Hypothyroidism -Continue levothyroxine Hx Breast Cancer - Tamoxifen use 20 mg QPM - available here with our pharmacy so will continue it tonight DVT ppx: As per primary team CODE STATUS: Full code Admission and Anticipated Discharge Date Admission Date: December 10, 2023 Subjective Patient is seen and examined at bedside Had BM today States feeling lot better today Back pain is controlled Denies any chest pain, dyspnea, dizziness, nausea, vomiting, abd pain Plan to be discharged home today Physical Exam Physical Exam: Physical Exam: Vitals signs as noted above General Appearance: Obese, no apparent distress Head: normocephalic, Atraumatic Eyes: normal inspection, EOMI Neck: supple, Trachea midline Respiratory/Chest: Normal breath sounds, CTA, No accessory muscle use Cardiovascular: S1, S2, No murmur Abdomen/GI:Soft, Non tender, Bowel sounds present Back: Surgical site in dressing Extremities/Musculoskeletal:normal inspection, no edema Neurologic/Psych:AAOX3, grossly no focal neurological deficits Skin: normal color, warm Results & Data Results & Data Vital Signs (Past 12 Hours) Vital Signs Temp Pulse Resp BP Pulse Ox O2 Del Method 12/14/23 07:48 36.8 C 66 16 137/85 98 Room Air Laboratory Results Short CBC 12/14/23 Range/Units 06:08 WBC 12.58 H (4.8-10.8) K/ul Hgb 9.3 L (12.0-16.0) g/dl Hct 27.9 L (37.0-47.0) % Plt Count 227 (130-400) K/uL BMP 12/14/23 06:08 Sodium 137 Potassium 3.7 Chloride 102 Carbon Dioxide 27 BUN 15 Creatinine 0.68 Glucose 160 H Calcium 8.9
[2023-12-15] MEDS ORDERED: POTASSIUM CHLORIDE CRTAB 20 MEQ TABCR PO SCH (09:00)
== END 2023-12-14 13:41 | disposition home or self-care (01) | DRG 454 ==
LOC: ASU 07:58 → 3E 12:09